=== PATIENT | female | born 1960 | race Caucasian/White ===

== ENCOUNTER 2018-01-26 02:40 | Observation (INO) ==
[2018-01-26] MEDS ORDERED: Naloxone 0.4 MG/ML INJ IVP PRN (05:51)
[2018-01-26] MEDS ORDERED: Dextrose Gel 15 GM/37.5 ML TUBE PO PRN ×2 (06:11)
[2018-01-26] MEDS ORDERED: D5% in Water 1,000 ML IVC PRN (06:11)
[2018-01-26] MEDS ORDERED: *HR* Dextrose 50 % in Water (Syg) 50 ML SYRINGE IVP PRN (06:11)
--- NOTE | 2018-01-26 06:19 | Internal Med History&Physical ---
Date of Encounter: 01/26/18 Time of Encounter: 05:00 Internal Medicine - H&P: HPI Chief complaint: Syncope and confusion Admitted From: Home Plans for Post Hospital Care: Home History of present illness: Ms. Lock is a 57 year old female transferred from [facility] for confusion and syncope. Past medical history is significant for cirrhosis due to fatty liver, diabetes, CKD. Patient said she is more confused yesterday. Around the 4 PM, she loss consciousness and fell. She had forehead injury on the left side. Patient continue confused in [facility] emergency room. She was found elevated ammonia level to 110. Patient had CT head and C-spine, results are unremarkable. Patient was given lactulose 40 g by mouth once and she was transferred to our hospital for further management. When I see patient in floor, she is awake alert oriented 3. Labs in [facility] ER: WBC 7.5/11.6/34.5/156, BMP 139/3.9/106/25/15/1.51/76, AST 70 , ALT 36. Ammonia 110. Past Med Surg Social Fam HX - Past Medical History Medical history: arthritis, cirrhosis, diabetes, GERD, hyperlipidemia, hypertension, liver disease, other Additional medical history: ruptured disc Psychiatric history: depression - Past Surgical History Surgical History: cholecystectomy Additional surgical history: Back surgery. - Social History Smoking Status: Former smoker Smokeless Tobacco Status: No Alcohol use: none Drug use: none - Family History Mother Name: Acacia Oliva Living Status: Age at : 96 Cause of : heart issues Hx Family Cardiac Disorders: Yes (multiple bypass) Hx Family Endocrine Disorder: Yes (type one diabetes) Father Name: Sandor Oliva Living Status: Age at : 76 Cause of : diabtes complaications Hx Family Endocrine Disorder: Yes (dm type 2) Internal Medicine - H&P: Meds Citalopram Hydrobromide [Celexa] 20 mg PO DAILY 03/28/15 [History] Docusate [Colace] 100 mg PO DAILY 03/28/15 [History] Glimepiride [Amaryl] 4 mg PO BID 03/28/15 [History] Omeprazole [PriLOSEC] 40 mg PO DAILY 03/28/15 [History] Simvastatin [Zocor] 40 mg PO HS 03/28/15 [History] traMADol [Ultram] 50 mg PO QID PRN 09/13/15 [History] Ferrous Sulfate [Iron] 325 mg PO DAILY 10/23/16 [History] Tizanidine HCl [Zanaflex] 4 mg PO TID PRN 10/23/16 [History] hydrOXYzine HCl [Hydroxyzine HCl] 25 mg PO Q6-8H PRN 10/23/16 [History] Gabapentin [Neurontin] 300 mg PO TID #90 capsule 11/12/16 [Rx] Nadolol 40 mg PO DAILY 11/12/16 [History] Cetirizine HCl [All Day Allergy] 10 mg PO DAILY 10/15/17 [History] Cholecalciferol (Vitamin D3) [Vitamin D3] 10,000 unit PO QWEEK 10/15/17 [History ] Linagliptin [Tradjenta] 5 mg PO DAILY 10/15/17 [History] Liraglutide [Victoza 2-Colin] 1.8 mg SQ DAILY 10/15/17 [History] Lactulose 10 gm PO BID 12/04/17 [History] Furosemide [Lasix] 20 mg PO DAILY 01/10/18 [History] Spironolactone [Aldactone] 50 mg PO BID 01/10/18 [History] 3 Allergy/AdvReac Type Severity Reaction Status Date / Time amlodipine [From Norvasc] AdvReac Rash Verified 01/10/18 15:01 cephalexin [From Keflex] AdvReac Rash Verified 01/10/18 15:01 diltiazem [From Cardizem] AdvReac Rash Verified 01/10/18 15:01 FD and C blue no.1 AdvReac Itching Verified 01/10/18 15:01 [FD & C Blue No.1] Penicillins [PCN] AdvReac Rash Verified 01/10/18 15:01 All Systems PM: A 10-system review of systems was performed and is negative for pertinent findings except as documented above in the HPI. - Constitutional Vitals: Temp Pulse Resp BP Pulse Ox 97.7 F 68 16 144/83 99 01/26/18 04:06 01/26/18 04:06 01/26/18 04:06 01/26/18 04:06 01/26/18 04:06 General appearance: Present: A&O X 3, no acute distress, answers questions appropriately - Head Head exam: Present: atraumatic, normocephalic - Eye Eye exam: Present: PERRL, conjuntiva pink, sclera anicteric Pupils: Present: PERRL - Neck Neck exam general surgery: Present: supple, trachea midline. Absent: lymphadenopathy - Respiratory Respiratory exam: Present: CTAB. Absent: accessory muscle use, rales, rhonchi, wheezes - Cardiovascular Cardiovascular exam: Present: RRR, +S1, +S2. Absent: diastolic murmur, gallop, rubs, systolic murmur - GI/Abdominal GI/Abdominal exam: Present: normal bowel sounds, soft, no peritoneal signs. Absent: distended, tenderness - Extremities Exam Extremities exam: Present: warm, radial pulses palpable and symmetrical. Absent : calf tenderness, cyanotic, pedal edema - Neurological Exam Neurological exam: Present: CN II-XII intact, oriented X3, no focal deficits. Absent: pronater drift, facial droop, speech deficit - Skin Skin exam: Present: dry, intact - Assessment and plan (1) Syncope Current Visit: Yes Status: Acute Assessment and plan: Patient has syncope and fall, etiology is undetermined. Probably due to hepatic encephalopathy. However, also need to rule out other cardiac/neuro etiology. - Place patient on continuous cardiac monitoring - Check Echo and duplex carotid bilaterally. - Fall precaution Qualifiers: Syncope type: unspecified Qualified Code(s): R55 - Syncope and collapse (2) Hepatic encephalopathy Current Visit: Yes Status: Acute Assessment and plan: Patient has confusion and elevated ammonia level. History of cirrhosis. Consider hepatic encephalopathy. - Improved after large dose of lactulose in the emergency room - Increase patient's home dose of lactulose to 10 g 3 times a day. - Track ammonia level, continuous close monitor patient (3) CKD (chronic kidney disease) stage 3, GFR 30-59 ml/min Current Visit: No Status: Acute Assessment and plan: Creatinine level is at her baseline (4) Liver cirrhosis secondary to STEVEN Current Visit: No Status: Chronic Assessment and plan: Patient is following with GI as outpatient. She was referred to [facility] for liver transplant. (5) Type 2 diabetes mellitus Current Visit: No Status: Chronic Assessment and plan: Place patient on sliding scale insulin coverage Qualifiers: Diabetes mellitus predatory animal exterminator insulin use: without snf use Diabetes mellitus complication status: with kidney complications Diabetes mellitus complication detail: with nephropathy Qualified Code(s): E11.21 - Type 2 diabetes mellitus with diabetic nephropathy - Time Spent With Patient Total time spent is greater than 50% in coordination of care (as documented) at patient's floor/unit and/or counseling patient: 40 minutes Greater than 35 minutes
[2018-01-26 06:24] LABS: Basophils # 0.1 K/mcL (0.0-0.2); Basophils % 1.3 %; Eosinophils # 0.2 K/mcL (0.0-0.6); Eosinophils % 3.7 %; Hematocrit 35.7 % (35.3-44.9); Hemoglobin 11.8 g/dL (11.5-15.4); Immature Granulocytes % 0.3 % (0-4); Lymphocytes # 1.5 K/mcL (0.6-4.6); Lymphocytes % 23.9 %; Mean Corpuscular HGB Conc 33.1 g/dL (31.6-35.5); Mean Corpuscular Hemoglobin 29.2 pg (28.0-33.3); Mean Corpuscular Volume 88.4 fL (83.0-100.0); Mean Platelet Volume 10.1 fL (9.4-12.4); Monocytes # 0.5 K/mcL (0.0-1.3); Monocytes % 8.1 %; Neutrophils # 3.9 K/mcL (1.6-8.9); Platelet Count 106 K/mcL (140-400); Red Blood Count 4.04 M/mcL (3.82-4.97); Red Cell Distribution Width 14.4 % (11.5-14.5); Segmented Neutrophils % 62.7 %
[2018-01-26 06:41] LABS: Albumin 2.9 g/dL (3.5-5.7); Albumin/Globulin Ratio 0.8 (1.1-2.2); Calcium 8.8 mg/dL (8.6-10.3); Globulin 3.5 g/dL (2.4-3.5); Magnesium 1.5 mg/dL (1.6-2.6); Potassium 3.5 mEq/L (3.5-5.1); Total Protein 6.4 g/dL (6.4-8.9)
[2018-01-26] MEDS: Lactulose Oral Soln 20 GM/30 ML UDC PO SCH ×3 (09:08→21:40)
[2018-01-26] MEDS: Furosemide 20 MG TABLET PO SCH (09:09)
[2018-01-26] MEDS: Insulin LISPRO 300 UNITS/3 ML VIAL SQ SCH ×3 (09:13→17:29)
[2018-01-26] MEDS: *HR* Heparin 5,000 UNIT/ML VIAL SQ SCH ×2 (09:13→17:31)
--- NOTE | 2018-01-26 10:24 | Event Note ---
Date of Encounter: 01/26/18 Time of Encounter: 10:22 Patient was seen earlier by hospitalist in the am, I examined the patient at the bedside. Denies any pain or discomfort she is neurologically intact. Denies any pain or discomfort.She is hemodynamically stable
[2018-01-26] MEDS ORDERED: Insulin LISPRO 300 UNITS/3 ML VIAL SQ SCH (21:00)
[2018-01-27 05:30] LABS: Immature Granulocytes % 0.3 % (0-4); Red Cell Distribution Width 14.6 % (11.5-14.5)
[2018-01-27 05:32] LABS: Basophils # 0.1 K/mcL (0.0-0.2); Basophils % 1.4 %; Eosinophils # 0.2 K/mcL (0.0-0.6); Eosinophils % 2.9 %; Hematocrit 31.9 % (35.3-44.9); Hemoglobin 10.6 g/dL (11.5-15.4); Immature Platelets 2.5 % (1.1-6.1); Lymphocytes # 1.7 K/mcL (0.6-4.6); Lymphocytes % 29.2 %; Mean Corpuscular HGB Conc 33.2 g/dL (31.6-35.5); Mean Corpuscular Volume 87.2 fL (83.0-100.0); Mean Platelet Volume 9.9 fL (9.4-12.4); Monocytes # 0.5 K/mcL (0.0-1.3); Monocytes % 8.7 %; Neutrophils # 3.4 K/mcL (1.6-8.9); Platelet Count 105 K/mcL (140-400); Red Blood Count 3.66 M/mcL (3.82-4.97); Segmented Neutrophils % 57.5 %
[2018-01-27 05:49] LABS: Calcium 8.4 mg/dL (8.6-10.3); Potassium 3.3 mEq/L (3.5-5.1)
[2018-01-27] MEDS: *HR* Heparin 5,000 UNIT/ML VIAL SQ SCH ×2 (05:50→18:09)
[2018-01-27] MEDS: Lactulose Oral Soln 20 GM/30 ML UDC PO SCH ×2 (08:42→14:11)
[2018-01-27] MEDS: Furosemide 20 MG TABLET PO SCH (08:43)
[2018-01-27] MEDS: Insulin LISPRO 300 UNITS/3 ML VIAL SQ SCH ×3 (08:50→18:09)
[2018-01-27] MEDS ORDERED: traMADol 50 MG TABLET PO PRN (09:44)
[2018-01-27] MEDS ORDERED: DiphenhydraMINE CREAM 28.4 GM TUBE TP PRN (09:48)
[2018-01-27 15:09] VITALS: BP 130/80
--- NOTE | 2018-01-27 17:40 | Discharge Summary ---
- NOTES TO OUTPATIENT PROVIDER Notes to Outpatient Provider: Carotid duplex did reveal right internal carotid artery has 60-79% stenosis can follow-up with vascular Dr. Humphrey once evaluated by [facility] for liver transplant. Patient did have hypokalemia/ elevated ammonia will need to follow-up with chemistry monitor ammonia level Date of Encounter: 01/27/18 Time of Encounter: 17:38 - Discharge Diagnosis (1) Liver cirrhosis secondary to STEVEN Priority: Secondary Status: Chronic (2) Type 2 diabetes mellitus Priority: Secondary Status: Chronic Qualifiers: Diabetes mellitus terminal superintendent insulin use: without terminal superintendent use Diabetes mellitus complication status: with kidney complications Diabetes mellitus complication detail: with nephropathy Qualified Code(s): E11.21 - Type 2 diabetes mellitus with diabetic nephropathy (3) CKD (chronic kidney disease) stage 3, GFR 30-59 ml/min Priority: Secondary Status: Acute (4) Syncope Priority: Primary Status: Acute Qualifiers: Syncope type: unspecified Qualified Code(s): R55 - Syncope and collapse (5) Hepatic encephalopathy Priority: Primary Status: Acute Hospital course: Ms. Lock is a 57 year old female past medical history of arthritis cirrhosis due to fatty liver diabetes CKD stage III hypertension GERD. Patient was transferred from [facility] for confusion and syncopal episode according to the patient she had not taken her lactulose for approximately 3 days she was found to have an elevated ammonia level of 110. CT head and C- spine were unremarkable she was given lactulose 40 g initially and resumed on her home dose of lactulose. Her ammonia level dropped to 55 She returned to her baseline mental state alert oriented 3 following simple commands. I suspect her altered mental state is secondary to She does have a hematoma to her left eye. Hemoglobin is stable her potassium was low as we replaced creatinine was within her baseline which appears to be around 2 echo was completed which did show EF of 55-60% with no pulmonary hypertension no significant valvular dysfunction. Carotid duplex was completed which did reveal right internal carotid artery has 60-79% stenosis left carotid arteries have minimal plaque throughout. I did speak with Dr. Humphrey vascular surgeon who advised for patient to follow-up with him as outpatient once she has seen by [facility] for her workup concerning a liver transplant. We will continue with her statin however we will hold aspirin due to thrombocytopenia which appears to be chronic but currently higher than it has been in the past. I did advise the patient to follow-up with her primary care provider and to monitor her lab work as outpatient. She verbalized understanding. I also advised her to follow-up with her eye state which she states she has appointment on the of this month and to follow-up with Dr. Humphrey once she completes her workup. She did verbalize understanding. Advised patient to continue medications as directed and to continue with home dose of lactulose. Again she verbalized understanding vital signs are stable at this time orthostatics were completed and are within normal limits she is ready for discharge. Discharge discussed with: patient - Time Spent with Patient Total time spent providing and/or coordinating discharge services: - Discharge Medications Home Medications: Citalopram Hydrobromide [Celexa] 20 mg PO DAILY 03/28/15 [History] Docusate [Colace] 100 mg PO DAILY 03/28/15 [History] Glimepiride [Amaryl] 4 mg PO BID 03/28/15 [History] Omeprazole [PriLOSEC] 40 mg PO DAILY 03/28/15 [History] Simvastatin [Zocor] 40 mg PO HS 03/28/15 [History] traMADol [Ultram] 50 mg PO QID PRN 09/13/15 [History] Ferrous Sulfate [Iron] 325 mg PO DAILY 10/23/16 [History] Tizanidine HCl [Zanaflex] 4 mg PO TID PRN 10/23/16 [History] hydrOXYzine HCl [Hydroxyzine HCl] 25 mg PO Q6-8H PRN 10/23/16 [History] Gabapentin [Neurontin] 300 mg PO TID #90 capsule 11/12/16 [Rx] Nadolol 40 mg PO DAILY 11/12/16 [History] Cetirizine HCl [All Day Allergy] 10 mg PO DAILY 10/15/17 [History] Cholecalciferol (Vitamin D3) [Vitamin D3] 10,000 unit PO QWEEK 10/15/17 [History ] Linagliptin [Tradjenta] 5 mg PO DAILY 10/15/17 [History] Liraglutide [Victoza 2-Colin] 1.8 mg SQ DAILY 10/15/17 [History] Lactulose 10 gm PO BID 12/04/17 [History] Furosemide [Lasix] 20 mg PO DAILY 01/10/18 [History] Spironolactone [Aldactone] 50 mg PO BID 01/10/18 [History] Allergies/Adverse Reactions: 3 Allergy/AdvReac Type Severity Reaction Status Date / Time amlodipine [From Norvasc] AdvReac Rash Verified 01/10/18 15:01 cephalexin [From Keflex] AdvReac Rash Verified 01/10/18 15:01 diltiazem [From Cardizem] AdvReac Rash Verified 01/10/18 15:01 FD and C blue no.1 AdvReac Itching Verified 01/10/18 15:01 [FD & C Blue No.1] Penicillins [PCN] AdvReac Rash Verified 01/10/18 15:01 Date of admission: 01/26/18 03:40 Primary care physician: Aurora Yang, Discharging clinician: Laquita Bailey Anticipated date of discharge: 01/27/18 - Constitutional Vitals: Temp Pulse Resp BP Pulse Ox 98.7 F 62 16 130/80 98 01/27/18 15:08 01/27/18 15:08 01/27/18 15:08 01/27/18 15:08 01/27/18 15:08 General appearance: Present: A&O X 3, no acute distress, answers questions appropriately - Head Head exam: Present: atraumatic, normocephalic - Eye Eye exam: Present: PERRL, conjuntiva pink, sclera anicteric Pupils: Present: PERRL - Neck Neck exam general surgery: Present: supple, trachea midline. Absent: lymphadenopathy - Respiratory Respiratory exam: Present: CTAB. Absent: accessory muscle use, rales, rhonchi, wheezes - Cardiovascular Cardiovascular exam: Present: RRR, +S1, +S2. Absent: diastolic murmur, gallop, rubs, systolic murmur - GI/Abdominal GI/Abdominal exam: Present: normal bowel sounds, soft, no peritoneal signs. Absent: distended, tenderness - Extremities Exam Extremities exam: Present: warm, radial pulses palpable and symmetrical. Absent : calf tenderness, cyanotic, pedal edema - Neurological Exam Neurological exam: Present: CN II-XII intact, oriented X3, no focal deficits. Absent: pronater drift, facial droop, speech deficit - Skin Skin exam: Present: dry, intact - Patient Status Disposition: Home, Self-Care Condition: Good Functional capacity at discharge: independent ambulation Overall status at discharge: patient is back to baseline - Discharge Instructions Follow Up With: Aurora Yang CNP [Primary Care Provider] - 02/04/18 1:00 pm () Sukhi Hilliard MD [Partnered Physician] - (We have web requested you an appointment with Dr. Hilliard's office. If you do not hear from them by next week please call them. Thank you!) - Diet and Activity Activity: resume usual activities as tolerated Diet: advance to your usual diet
== END 2018-01-27 20:10 | disposition home or self-care (01) ==
LOC: 3BNU
PROVIDERS: ADMIT Internal Medicine; ATTEND Internal Medicine

== ENCOUNTER 2019-02-26 16:15 | Inpatient (IN) ==
--- NOTE | 2019-02-26 16:30 | Emergency Department Note ---
Disposition Clinical Impression: Delirium due to general medical condition, Hyperammonemia, Thrombocytopenia Disposition: Admitted As Inpatient Condition: Good Time of Disposition: 18:33 Altered Mental Status HPI - General Chief Complaint: ED Altered Mental Status Stated Complaint: AMS, CA Patient Time Seen by Provider: 02/26/19 16:27 Source: family Limitations: no limitations Nursing Notes Reviewed: Yes Vital Signs Reviewed: Yes - History of Present Illness HPI Narrative: Female patient was and she emerged department from the [facility] for increased confusion. She does have a history of STEVEN. is with the at this time and states that she has been confused over the past 3 days. She is mentating appropriately at this time. He states that when her ammonia goes up she does get more confused. She reports that she is taking her medication as prescribed. He states that she has had 3 episodes of vomiting today. The last episode did have some mild amount of blood in it but was not overtly bloody or debbie blood. The vomitus was mostly yellow in color. He states that she does have falls at home whenever ammonia sign he was concerned because she does appear to be unstable on her feet. They were at the [facility] earlier today and were informed to come to the emergency department secondary to her altered mental status and weakness. - Related Data Home Medications Medication Instructions Recorded Confirmed Citalopram Hydrobromide [Celexa] 20 mg PO DAILY 03/28/15 02/26/19 Omeprazole [PriLOSEC] 40 mg PO DAILY 03/28/15 02/26/19 Simvastatin [Zocor] 40 mg PO HS 03/28/15 02/26/19 traMADol [Ultram] 50 mg PO QID PRN 09/13/15 02/26/19 Ferrous Sulfate [Iron] 325 mg PO DAILY 10/23/16 02/26/19 Tizanidine HCl [Zanaflex] 4 mg PO HS 10/23/16 02/28/19 hydrOXYzine HCl [Hydroxyzine HCl] 25 mg PO TID PRN 10/23/16 02/28/19 Cetirizine HCl [All Day Allergy] 10 mg PO DAILY 10/15/17 02/26/19 Cholecalciferol (Vitamin D3) 10,000 unit PO TH 10/15/17 02/28/19 [Vitamin D3] Linagliptin [Tradjenta] 5 mg PO DAILY 10/15/17 02/26/19 Liraglutide [Victoza 2-Colin] 1.8 mg SQ DAILY 10/15/17 02/26/19 Furosemide [Lasix] 20 mg PO DAILY 01/10/18 02/26/19 Spironolactone [Aldactone] 100 mg PO DAILY 01/10/18 02/28/19 Insulin DETEMIR [Levemir] 44 unit SQ HS 04/17/18 02/28/19 Propranolol [Inderal] 10 mg PO BID 09/01/18 02/26/19 Rifaximin [Xifaxan] 550 mg PO BID 09/01/18 02/26/19 Insulin LISPRO [Humalog] 23 units SQ TID 11/28/18 02/28/19 Melatonin 5 mg PO HS 02/28/19 02/28/19 Potassium Chloride [K-Tab ER] 20 meq PO DAILY 02/28/19 02/28/19 Previous Rx's Medication Instructions Recorded Gabapentin [Neurontin] 300 mg PO TID #90 capsule 11/12/16 Lactulose 20 gm PO BID #60 udc 03/01/19 Allergies Allergy/AdvReac Type Severity Reaction Status Date / Time amlodipine [From Norvasc] AdvReac Rash Verified 02/26/19 15:14 cephalexin [From Keflex] AdvReac Rash Verified 02/26/19 15:14 diltiazem [From Cardizem] AdvReac Rash Verified 02/26/19 15:14 FD and C blue no.1 AdvReac Itching Verified 02/26/19 15:14 [FD & C Blue No.1] lisinopril AdvReac Nausea Verified 02/26/19 15:14 Penicillins [PCN] AdvReac Rash Verified 02/26/19 15:14 All systems ED: reviewed and negative except as stated. Review of Systems: As Per HPI Constitutional: Denies: fever, chills ENT ED: Denies: congestion Cardiovascular: Denies: chest pain, syncope Respiratory: Denies: cough, dyspnea Gastrointestinal: Reports: vomiting (3 episodes of vomiting earlier today.), hematemesis (Possible streaking of the last episode of vomitus.). Denies: abdominal pain, nausea, melena, hematochezia Neurological: Reports: weakness, confusion. Denies: headache Past Medical History - Past Medical History Attestation: Yes The following information was validated with the patient. Source: patient Medical history: Reports: arthritis, cirrhosis, diabetes, GERD, hyperlipidemia, hypertension, liver disease, renal disease, other Surgical history: Reports: cholecystectomy Psychiatric history: Reports: depression - Social History Smoking Status: Former smoker Smokeless Tobacco Status: No Alcohol use: Reports: none Drug use: Reports: none Physical Exam - General Limitations: no limitations General appearance: alert, in no apparent distress - Head Head exam: atraumatic, normocephalic, normal inspection - Eye Eye exam: Present: normal appearance, PERRL, EOMI - ENT ENT exam: normal exam, normal oropharynx, mucous membranes moist - Neck Neck exam: Present: normal inspection, full ROM, trachea midline - Chest Chest inspection: Present: normal inspection, symmetric chest wall rise - Respiratory Respiratory exam: Present: normal lung sounds bilaterally. Absent: respiratory distress, accessory muscle use - Cardiovascular Cardiovascular exam: Present: regular rate, normal rhythm, normal heart sounds - Abdominal Exam Abdominal exam: Present: soft, Non-Tender. Absent: tenderness, distention, guarding, rebound, rigidity, Dunne's sign, Rovsing's sign, tenderness at McBurney's Point, ascites - Extremities Exam Extremities exam: Present: normal inspection, full ROM, normal capillary refill. Absent: tenderness, pedal edema, calf tenderness - Back Exam Back exam: Present: normal inspection, full ROM. Absent: tenderness - Neurological Exam Neurological exam: Present: alert, oriented X3 - Psychiatric Psychiatric exam: Present: normal affect, normal mood - Skin Skin exam: Present: warm, dry, intact, normal color, other (Ecchymosis to bilateral arms.). Absent: rash, cyanosis, diaphoresis Course Course Narrative: Patient resting comfortably in bed. She is alert to person place and time but does appear to be tired. Has been states that she has been more confused recently which was consistent with her ammonia being elevated before. He states in the patient also agrees that she has been taking her medication as prescribed. She has been taking her lactulose. She does have a history of STEVEN. Patient is in no acute distress with stable vitals. Abdomen is soft and nontender. There is no fluid wave that I can appreciate. She does have some ecchymosis scattered her arms from bumping into things secondary to her liver failure. She is currently on a liver transplant list at this time. She has had 3 episodes of vomiting today. She reports that she is not nauseated at this time and is requesting food. She states that the vomitus has been a yellow color. The states that the last time she vomited there was a small amount of redness to the vomit. It was not overtly bloody however. Patient's lab work shows a elevated ammonia level at this time. We will provide patient with lactulose and admit to the hospital. Has been states that he has concerned that she will have falls at home as she is rather weak on her feet. She does have easy bleeding secondary to her liver failure. She does appear to be overtly week while here with no lateralizing symptoms. Vital Signs Temperature 97.6 F 02/26/19 16:18 Pulse Rate 75 02/26/19 16:18 Respiratory Rate 18 02/26/19 16:18 Blood Pressure 152/84 02/26/19 16:18 O2 Sat by Pulse Oximetry 100 02/26/19 16:18 Temperature 97.6 F 02/26/19 16:18 Pulse Rate 70 02/26/19 18:15 Respiratory Rate 18 02/26/19 18:15 Blood Pressure 127/69 02/26/19 18:15 O2 Sat by Pulse Oximetry 100 02/26/19 18:15 Oxygen Delivery Oxygen Delivery Room Air Altered Mental Status - Medical Records Medical records reviewed: Yes I reviewed the patient's medical records. - Lab Data Lab results reviewed: Yes I reviewed the patient's lab results. Result diagrams: 03/01/19 01:54 03/01/19 01:54 Lab Results 02/26/19 02/26/19 02/26/19 Range/Units 16:45 16:45 16:51 WBC 4.8 (4.3-11.1) K/mcL RBC 4.74 (3.82-4.97) M/mcL Hgb 14.4 D (11.5-15.4) g/dL Hct 42.9 (35.3-44.9) % MCV 90.5 (83.0-100.0) fL MCH 30.4 (28.0-33.3) pg MCHC 33.6 (31.6-35.5) g/dL RDW 14.9 H (11.5-14.5) % Plt Count 98 L (140-400) K/mcL MPV 10.0 (9.4-12.4) fL Immature Gran % 0.2 (0-4) % Seg Neutrophils % 77.1 % Lymphocytes % 12.9 % Monocytes % 4.8 % Eosinophils % 4.0 % Basophils % 1.0 % Neutrophils # 3.7 (1.6-8.9) K/mcL Lymphocytes # 0.6 (0.6-4.6) K/mcL Monocytes # 0.2 (0.0-1.3) K/mcL Eosinophils # 0.2 (0.0-0.6) K/mcL Basophils # 0.1 (0.0-0.2) K/mcL Platelet Estimate Decreased L (Normal) PT (9.4-12.1) Seconds INR APTT (26.0-36.0) Seconds VBG pH (7.32-7.42) pH Units VBG pCO2 (41-51) mmHg VBG pO2 (25-50) mmHg VBG HCO3 (21-27) mEq/L Sodium (136-145) mEq/L Potassium (3.5-5.1) mEq/L Chloride (98-107) mEq/L Carbon Dioxide (23-29) mEq/L BUN (6-20) mg/dL Creatinine (0.60-1.20) mg/dL Est GFR ( Amer) (> 60) Est GFR (Non-Af Amer) (> 60) BUN/Creatinine Ratio (6-26) Glucose (70-105) mg/dL Calculated Osmolality (280-300) Calcium (8.6-10.3) mg/dL Total Bilirubin (0.3-1.0) mg/dL Direct Bilirubin (0.0-0.2) mg/dL Indirect Bilirubin (0.0-1.2) mg/dL AST (13-39) Units/L ALT (7-52) Units/L Alkaline Phosphatase (34-104) Units/L Ammonia (16-53) mcmol/L Troponin I (< 0.04) ng/mL Serum Total Protein (6.4-8.9) g/dL Albumin (3.5-5.7) g/dL Globulin (2.4-3.5) g/dL Albumin/Globulin Ratio (1.1-2.2) Urine Color Yellow (Yellow) Urine Clarity Cloudy A (Clear) Urine pH 6.5 (5.0-8.0) pH Units Ur Specific Warren 1.013 (1.010-1.025) Urine Protein Negative (Neg-Trace) mg/dL Urine Glucose (UA) >=1000 H (Normal) mg/dL Urine Ketones Negative (Negative) mg/dL Urine Blood Negative (Negative) Urine Nitrite Negative (Negative) Urine Bilirubin Negative (Negative) Urine Urobilinogen Normal (Normal) mg/dL Ur Leukocyte Esterase Trace H (Negative) Urine Microscopic RBC 0-3 (0-3) per hpf Urine Microscopic WBC 5-15 H (0-3) per hpf Ur Squamous Epith Cells Many H (None-Few) per lpf Urine Bacteria Few (None-Few) per hpf Hyaline Casts None Seen (None-Few) per lpf Ur Culture Indicated? YES A (NO) Urine Opiates Screen Negative (Ldjykg=224) ng/mL Ur Buprenorphine Scrn Negative (Cutoff=5) ng/mL Ur Barbiturates Screen Negative (Sgzocn=509) ng/mL Ur Phencyclidine Scrn Negative (Cutoff=25) ng/mL Ur Amphetamines Screen Negative (Ckluqy=1934) ng/mL U Benzodiazepines Scrn Negative (Lytiul=003) ng/mL Urine Cocaine Screen Negative (Cutoff= 300) ng/mL U Marijuana (THC) Screen Negative (Cutoff = 50) ng/mL Ur Drug Screen Interp See Below Ethyl Alcohol (Less than 10) mg/dL 02/26/19 02/26/19 02/26/19 Range/Units 16:51 16:51 16:51 WBC (4.3-11.1) K/mcL RBC (3.82-4.97) M/mcL Hgb (11.5-15.4) g/dL Hct (35.3-44.9) % MCV (83.0-100.0) fL MCH (28.0-33.3) pg MCHC (31.6-35.5) g/dL RDW (11.5-14.5) % Plt Count (140-400) K/mcL MPV (9.4-12.4) fL Immature Gran % (0-4) % Seg Neutrophils % % Lymphocytes % % Monocytes % % Eosinophils % % Basophils % % Neutrophils # (1.6-8.9) K/mcL Lymphocytes # (0.6-4.6) K/mcL Monocytes # (0.0-1.3) K/mcL Eosinophils # (0.0-0.6) K/mcL Basophils # (0.0-0.2) K/mcL Platelet Estimate (Normal) PT 12.8 H (9.4-12.1) Seconds INR 1.1 APTT 35.7 (26.0-36.0) Seconds VBG pH (7.32-7.42) pH Units VBG pCO2 (41-51) mmHg VBG pO2 (25-50) mmHg VBG HCO3 (21-27) mEq/L Sodium 138 (136-145) mEq/L Potassium 3.9 (3.5-5.1) mEq/L Chloride 101 (98-107) mEq/L Carbon Dioxide 25 (23-29) mEq/L BUN 18 (6-20) mg/dL Creatinine 1.43 H (0.60-1.20) mg/dL Est GFR ( Amer) 46 L (> 60) Est GFR (Non-Af Amer) 38 L (> 60) BUN/Creatinine Ratio 13 (6-26) Glucose 280 H (70-105) mg/dL Calculated Osmolality 298 (280-300) Calcium 9.3 (8.6-10.3) mg/dL Total Bilirubin 1.6 H (0.3-1.0) mg/dL Direct Bilirubin 0.4 H (0.0-0.2) mg/dL Indirect Bilirubin 1.2 (0.0-1.2) mg/dL AST 39 (13-39) Units/L ALT 24 (7-52) Units/L Alkaline Phosphatase 134 H (34-104) Units/L Ammonia 121 H (16-53) mcmol/L Troponin I < 0.03 (< 0.04) ng/mL Serum Total Protein 8.3 (6.4-8.9) g/dL Albumin 3.9 (3.5-5.7) g/dL Globulin 4.4 H (2.4-3.5) g/dL Albumin/Globulin Ratio 0.9 L (1.1-2.2) Urine Color (Yellow) Urine Clarity (Clear) Urine pH (5.0-8.0) pH Units Ur Specific Warren (1.010-1.025) Urine Protein (Neg-Trace) mg/dL Urine Glucose (UA) (Normal) mg/dL Urine Ketones (Negative) mg/dL Urine Blood (Negative) Urine Nitrite (Negative) Urine Bilirubin (Negative) Urine Urobilinogen (Normal) mg/dL Ur Leukocyte Esterase (Negative) Urine Microscopic RBC (0-3) per hpf Urine Microscopic WBC (0-3) per hpf Ur Squamous Epith Cells (None-Few) per lpf Urine Bacteria (None-Few) per hpf Hyaline Casts (None-Few) per lpf Ur Culture Indicated? (NO) Urine Opiates Screen (Uxmtxl=385) ng/mL Ur Buprenorphine Scrn (Cutoff=5) ng/mL Ur Barbiturates Screen (Canksp=614) ng/mL Ur Phencyclidine Scrn (Cutoff=25) ng/mL Ur Amphetamines Screen (Emkftv=3283) ng/mL U Benzodiazepines Scrn (Mqnypb=473) ng/mL Urine Cocaine Screen (Cutoff= 300) ng/mL U Marijuana (THC) Screen (Cutoff = 50) ng/mL Ur Drug Screen Interp Ethyl Alcohol < 10 (Less than 10) mg/dL 02/26/19 Range/Units 17:03 WBC (4.3-11.1) K/mcL RBC (3.82-4.97) M/mcL Hgb (11.5-15.4) g/dL Hct (35.3-44.9) % MCV (83.0-100.0) fL MCH (28.0-33.3) pg MCHC (31.6-35.5) g/dL RDW (11.5-14.5) % Plt Count (140-400) K/mcL MPV (9.4-12.4) fL Immature Gran % (0-4) % Seg Neutrophils % % Lymphocytes % % Monocytes % % Eosinophils % % Basophils % % Neutrophils # (1.6-8.9) K/mcL Lymphocytes # (0.6-4.6) K/mcL Monocytes # (0.0-1.3) K/mcL Eosinophils # (0.0-0.6) K/mcL Basophils # (0.0-0.2) K/mcL Platelet Estimate (Normal) PT (9.4-12.1) Seconds INR APTT (26.0-36.0) Seconds VBG pH 7.37 (7.32-7.42) pH Units VBG pCO2 44 (41-51) mmHg VBG pO2 36 (25-50) mmHg VBG HCO3 25 (21-27) mEq/L Sodium (136-145) mEq/L Potassium (3.5-5.1) mEq/L Chloride (98-107) mEq/L Carbon Dioxide (23-29) mEq/L BUN (6-20) mg/dL Creatinine (0.60-1.20) mg/dL Est GFR ( Amer) (> 60) Est GFR (Non-Af Amer) (> 60) BUN/Creatinine Ratio (6-26) Glucose (70-105) mg/dL Calculated Osmolality (280-300) Calcium (8.6-10.3) mg/dL Total Bilirubin (0.3-1.0) mg/dL Direct Bilirubin (0.0-0.2) mg/dL Indirect Bilirubin (0.0-1.2) mg/dL AST (13-39) Units/L ALT (7-52) Units/L Alkaline Phosphatase (34-104) Units/L Ammonia (16-53) mcmol/L Troponin I (< 0.04) ng/mL Serum Total Protein (6.4-8.9) g/dL Albumin (3.5-5.7) g/dL Globulin (2.4-3.5) g/dL Albumin/Globulin Ratio (1.1-2.2) Urine Color (Yellow) Urine Clarity (Clear) Urine pH (5.0-8.0) pH Units Ur Specific Warren (1.010-1.025) Urine Protein (Neg-Trace) mg/dL Urine Glucose (UA) (Normal) mg/dL Urine Ketones (Negative) mg/dL Urine Blood (Negative) Urine Nitrite (Negative) Urine Bilirubin (Negative) Urine Urobilinogen (Normal) mg/dL Ur Leukocyte Esterase (Negative) Urine Microscopic RBC (0-3) per hpf Urine Microscopic WBC (0-3) per hpf Ur Squamous Epith Cells (None-Few) per lpf Urine Bacteria (None-Few) per hpf Hyaline Casts (None-Few) per lpf Ur Culture Indicated? (NO) Urine Opiates Screen (Nvvcis=397) ng/mL Ur Buprenorphine Scrn (Cutoff=5) ng/mL Ur Barbiturates Screen (Qgxfas=675) ng/mL Ur Phencyclidine Scrn (Cutoff=25) ng/mL Ur Amphetamines Screen (Egsxws=7120) ng/mL U Benzodiazepines Scrn (Izyydv=518) ng/mL Urine Cocaine Screen (Cutoff= 300) ng/mL U Marijuana (THC) Screen (Cutoff = 50) ng/mL Ur Drug Screen Interp Ethyl Alcohol (Less than 10) mg/dL - Radiology Data Radiology results reviewed: Yes I reviewed the patient's radiology results. Chest X-Ray 02/26/19 16:28 IMPRESSION: No evidence of acute cardiopulmonary disease. D/ / Scott Dobson MD / Scott Dobson MD Interpreting Provider: Scott Dobson MD Head CT 02/26/19 16:35 IMPRESSION: No acute intracranial abnormality. D/ / Percy Perea / Percy Perea Interpreting Provider: Percy Perea - EKG Data EKG attestation: Yes I reviewed and interpreted this EKG. EKG results narrative: Normal sinus rhythm at a rate of 75. PA interval is 169. Shinto is 101. QTC is 441. QTC is 493. Good R-wave progression. No signs of acute ischemia. No signs of WPW or Brugada. No previous EKG to compare to. TPA Checklist - LKW: 3-4.5 hrs Add. Warnings/Precautions Patient/family understanding: The patient/family members have been counseled and understood the risk, benefit, and alternatives of treatment. Attestation Statement - Attestation Attestation: I have seen this patient with the resident physician, I have personally evaluated this patient. I had reviewed the chart and document dictation by the resident physician and aM in agreement with the information documented by the resident physician. Please see documentation by the resident physician for complete chart including past medical history, family medical history, review of systems, current history and physical and laboratory and imaging studies. I was present for all procedures, provided direct supervision for all procedures, was present for the entirety of all procedures and provided direct guidance during the procedures. Please see documentation by the resident physi daryl for any procedures performed. I have reviewed all interpretations of EKGs, and reviewed all EKGs performed on patient's as well. I have also reviewed reports of imaging as provided by radiology.
[2019-02-26 17:05] LABS: VBG HCO3 25 mEq/L (21-27); VBG PCO2 44 mmHg (41-51); VBG PH 7.37 pH Units (7.32-7.42); VBG PO2 36 mmHg (25-50)
[2019-02-26 17:09] LABS: Basophils # 0.1 K/mcL (0.0-0.2); Eosinophils # 0.2 K/mcL (0.0-0.6); Hematocrit 42.9 % (35.3-44.9); Hemoglobin 14.4 g/dL (11.5-15.4); Immature Granulocytes % 0.2 % (0-4); Lymphocytes # 0.6 K/mcL (0.6-4.6); Lymphocytes % 12.9 %; Mean Corpuscular HGB Conc 33.6 g/dL (31.6-35.5); Mean Corpuscular Hemoglobin 30.4 pg (28.0-33.3); Mean Corpuscular Volume 90.5 fL (83.0-100.0); Monocytes # 0.2 K/mcL (0.0-1.3); Monocytes % 4.8 %; Neutrophils # 3.7 K/mcL (1.6-8.9); Red Blood Count 4.74 M/mcL (3.82-4.97); Red Cell Distribution Width 14.9 % (11.5-14.5); Segmented Neutrophils % 77.1 %; White Blood Count 4.8 K/mcL (4.3-11.1)
[2019-02-26 17:10] LABS: Platelet Count 98 K/mcL (140-400)
[2019-02-26 17:11] LABS: Platelet Estimate Decreased (Normal)
[2019-02-26 17:18] LABS: INR 1.1; Prothrombin Time 12.8 Seconds (9.4-12.1)
[2019-02-26 17:20] LABS: Activated Partial Thrombo Time 35.7 Seconds (26.0-36.0)
[2019-02-26 17:27] LABS: Bilirubin,Urine Negative (Negative); Blood,Urine Negative (Negative); Clarity,Urine Cloudy (Clear); Color,Urine Yellow (Yellow); Glucose,Urine (UA) >=1000 mg/dL (Normal); Ketones,Urine Negative (Negative); Leukocyte Esterase,Urine Trace (Negative); Nitrite,Urine Negative (Negative); PH,Urine 6.5 pH Units (5.0-8.0); Protein,Urine Negative (Neg-Trace); Specific Gravity,Urine 1.013 (1.010-1.025); Urobilinogen,Urine Normal (Normal)
[2019-02-26 17:27] LABS: Alanine Aminotransferase 24 Units/L (7-52); Albumin 3.9 g/dL (3.5-5.7); Albumin/Globulin Ratio 0.9 (1.1-2.2); Alkaline Phosphatase 134 Units/L (34-104); Aspartate Amino Transferase 39 Units/L (13-39); BUN/Creatinine Ratio 13 (6-26); Bilirubin,Direct 0.4 mg/dL (0.0-0.2); Bilirubin,Indirect 1.2 mg/dL (0.0-1.2); Bilirubin,Total 1.6 mg/dL (0.3-1.0); Blood Urea Nitrogen 18 mg/dL (6-20); Calcium 9.3 mg/dL (8.6-10.3); Carbon Dioxide 25 mEq/L (23-29); Chloride 101 mEq/L (98-107); Ethanol < 10 mg/dL (Less than 10); Globulin 4.4 g/dL (2.4-3.5); Glucose 280 mg/dL (70-105); Osmolality,Calculated 298 (280-300); Potassium 3.9 mEq/L (3.5-5.1); Sodium 138 mEq/L (136-145); Total Protein 8.3 g/dL (6.4-8.9); Troponin I < 0.03 ng/mL (< 0.04); eGFR For African Americans 46 (> 60); eGFR For Non-African Americans 38 (> 60)
[2019-02-26 17:29] LABS: Bacteria,Urine Few per hpf (None-Few); Hyaline Casts,Urine None Seen per lpf (None-Few); RBC,Urine 0-3 per hpf (0-3); Squamous Epithelial Cell,Urine Many per lpf (None-Few)
[2019-02-26 17:32] LABS: Amphetamine Screen,Urine Negative ng/mL (Cutoff=1000); Barbiturate Screen,Urine Negative ng/mL (Cutoff=200); Benzodiazepines Screen,Urine Negative ng/mL (Cutoff=200); Cannabinoid Screen,Urine Negative ng/mL (Cutoff = 50); Cocaine Screen,Urine Negative ng/mL (Cutoff= 300); Opiate Screen,Urine Negative ng/mL (Cutoff=300); Phencyclidine Screen,Urine Negative ng/mL (Cutoff=25)
[2019-02-26] MEDS ORDERED: Lactulose Oral Soln 20 GM/30 ML UDC PO STA (17:54)
--- NOTE | 2019-02-26 18:21 | Emergency Department Note ---
Disposition Clinical Impression: Delirium due to general medical condition, Hyperammonemia, Thrombocytopenia Disposition: Admitted As Inpatient Condition: Good Forms: ED Satisfaction Letter Time of Disposition: 18:21 Altered Mental Status HPI - General Chief Complaint: ED Altered Mental Status Stated Complaint: AMS, CA Patient Time Seen by Provider: 02/26/19 16:27 Source: family Limitations: no limitations Nursing Notes Reviewed: Yes Vital Signs Reviewed: Yes - Related Data Home Medications Medication Instructions Recorded Confirmed Citalopram Hydrobromide [Celexa] 20 mg PO DAILY 03/28/15 02/26/19 Glimepiride [Amaryl] 4 mg PO BID 03/28/15 02/26/19 Omeprazole [PriLOSEC] 40 mg PO DAILY 03/28/15 02/26/19 Simvastatin [Zocor] 40 mg PO HS 03/28/15 02/26/19 traMADol [Ultram] 50 mg PO QID PRN 09/13/15 02/26/19 Ferrous Sulfate [Iron] 325 mg PO DAILY 10/23/16 02/26/19 Tizanidine HCl [Zanaflex] 4 mg PO TID PRN 10/23/16 02/26/19 hydrOXYzine HCl [Hydroxyzine HCl] 25 mg PO Q6-8H PRN 10/23/16 02/26/19 Cetirizine HCl [All Day Allergy] 10 mg PO DAILY 10/15/17 02/26/19 Cholecalciferol (Vitamin D3) 10,000 unit PO QWEEK 10/15/17 02/26/19 [Vitamin D3] Linagliptin [Tradjenta] 5 mg PO DAILY 10/15/17 02/26/19 Liraglutide [Victoza 2-Colin] 1.8 mg SQ DAILY 10/15/17 02/26/19 Lactulose 20 gm PO TID 12/04/17 02/26/19 Furosemide [Lasix] 20 mg PO DAILY 01/10/18 02/26/19 Spironolactone [Aldactone] 50 mg PO BID 01/10/18 02/26/19 Insulin DETEMIR [Levemir] 38 unit SQ DAILY 04/17/18 02/26/19 Propranolol [Inderal] 10 mg PO BID 09/01/18 02/26/19 Rifaximin [Xifaxan] 550 mg PO BID 09/01/18 02/26/19 Insulin LISPRO [Humalog] 24 units SQ 2-3XD 11/28/18 02/26/19 Previous Rx's Medication Instructions Recorded Gabapentin [Neurontin] 300 mg PO TID #90 capsule 11/12/16 Allergies Allergy/AdvReac Type Severity Reaction Status Date / Time amlodipine [From Norvasc] AdvReac Rash Verified 02/26/19 15:14 cephalexin [From Keflex] AdvReac Rash Verified 02/26/19 15:14 diltiazem [From Cardizem] AdvReac Rash Verified 02/26/19 15:14 FD and C blue no.1 AdvReac Itching Verified 02/26/19 15:14 [FD & C Blue No.1] lisinopril AdvReac Nausea Verified 02/26/19 15:14 Penicillins [PCN] AdvReac Rash Verified 02/26/19 15:14 Constitutional: Denies: fever, chills ENT ED: Denies: congestion Cardiovascular: Denies: chest pain, syncope Respiratory: Denies: cough, dyspnea Gastrointestinal: Reports: vomiting (3 episodes of vomiting earlier today.), hematemesis (Possible streaking of the last episode of vomitus.). Denies: abdominal pain, nausea, melena, hematochezia Neurological: Reports: weakness, confusion. Denies: headache Past Medical History - Past Medical History Medical history: Reports: arthritis, cirrhosis, diabetes, GERD, hyperlipidemia, hypertension, liver disease, renal disease, other Surgical history: Reports: cholecystectomy Psychiatric history: Reports: depression - Social History Smoking Status: Former smoker Smokeless Tobacco Status: No Alcohol use: Reports: none Drug use: Reports: none Physical Exam - General Limitations: no limitations General appearance: alert, in no apparent distress Course Vital Signs Temperature 97.6 F 02/26/19 16:18 Pulse Rate 75 02/26/19 16:18 Respiratory Rate 18 02/26/19 16:18 Blood Pressure 152/84 02/26/19 16:18 O2 Sat by Pulse Oximetry 100 02/26/19 16:18 Temperature 97.6 F 02/26/19 16:18 Pulse Rate 70 02/26/19 18:15 Respiratory Rate 18 02/26/19 18:15 Blood Pressure 127/69 02/26/19 18:15 O2 Sat by Pulse Oximetry 100 02/26/19 18:15 Oxygen Delivery Oxygen Delivery Room Air Altered Mental Status - Lab Data Result diagrams: 02/26/19 16:51 02/26/19 16:51 Lab Results 02/26/19 02/26/19 02/26/19 Range/Units 16:45 16:45 16:51 WBC 4.8 (4.3-11.1) K/mcL RBC 4.74 (3.82-4.97) M/mcL Hgb 14.4 D (11.5-15.4) g/dL Hct 42.9 (35.3-44.9) % MCV 90.5 (83.0-100.0) fL MCH 30.4 (28.0-33.3) pg MCHC 33.6 (31.6-35.5) g/dL RDW 14.9 H (11.5-14.5) % Plt Count 98 L (140-400) K/mcL MPV 10.0 (9.4-12.4) fL Immature Gran % 0.2 (0-4) % Seg Neutrophils % 77.1 % Lymphocytes % 12.9 % Monocytes % 4.8 % Eosinophils % 4.0 % Basophils % 1.0 % Neutrophils # 3.7 (1.6-8.9) K/mcL Lymphocytes # 0.6 (0.6-4.6) K/mcL Monocytes # 0.2 (0.0-1.3) K/mcL Eosinophils # 0.2 (0.0-0.6) K/mcL Basophils # 0.1 (0.0-0.2) K/mcL Platelet Estimate Decreased L (Normal) PT (9.4-12.1) Seconds INR APTT (26.0-36.0) Seconds VBG pH (7.32-7.42) pH Units VBG pCO2 (41-51) mmHg VBG pO2 (25-50) mmHg VBG HCO3 (21-27) mEq/L Sodium (136-145) mEq/L Potassium (3.5-5.1) mEq/L Chloride (98-107) mEq/L Carbon Dioxide (23-29) mEq/L BUN (6-20) mg/dL Creatinine (0.60-1.20) mg/dL Est GFR ( Amer) (> 60) Est GFR (Non-Af Amer) (> 60) BUN/Creatinine Ratio (6-26) Glucose (70-105) mg/dL Calculated Osmolality (280-300) Calcium (8.6-10.3) mg/dL Total Bilirubin (0.3-1.0) mg/dL Direct Bilirubin (0.0-0.2) mg/dL Indirect Bilirubin (0.0-1.2) mg/dL AST (13-39) Units/L ALT (7-52) Units/L Alkaline Phosphatase (34-104) Units/L Ammonia (16-53) mcmol/L Troponin I (< 0.04) ng/mL Serum Total Protein (6.4-8.9) g/dL Albumin (3.5-5.7) g/dL Globulin (2.4-3.5) g/dL Albumin/Globulin Ratio (1.1-2.2) Urine Color Yellow (Yellow) Urine Clarity Cloudy A (Clear) Urine pH 6.5 (5.0-8.0) pH Units Ur Specific Conde 1.013 (1.010-1.025) Urine Protein Negative (Neg-Trace) mg/dL Urine Glucose (UA) >=1000 H (Normal) mg/dL Urine Ketones Negative (Negative) mg/dL Urine Blood Negative (Negative) Urine Nitrite Negative (Negative) Urine Bilirubin Negative (Negative) Urine Urobilinogen Normal (Normal) mg/dL Ur Leukocyte Esterase Trace H (Negative) Urine Microscopic RBC 0-3 (0-3) per hpf Urine Microscopic WBC 5-15 H (0-3) per hpf Ur Squamous Epith Cells Many H (None-Few) per lpf Urine Bacteria Few (None-Few) per hpf Hyaline Casts None Seen (None-Few) per lpf Ur Culture Indicated? YES A (NO) Urine Opiates Screen Negative (Hfddkl=384) ng/mL Ur Buprenorphine Scrn Negative (Cutoff=5) ng/mL Ur Barbiturates Screen Negative (Ombywf=731) ng/mL Ur Phencyclidine Scrn Negative (Cutoff=25) ng/mL Ur Amphetamines Screen Negative (Pqhdud=4976) ng/mL U Benzodiazepines Scrn Negative (Fdsxgr=042) ng/mL Urine Cocaine Screen Negative (Cutoff= 300) ng/mL U Marijuana (THC) Screen Negative (Cutoff = 50) ng/mL Ur Drug Screen Interp See Below Ethyl Alcohol (Less than 10) mg/dL 02/26/19 02/26/19 02/26/19 Range/Units 16:51 16:51 16:51 WBC (4.3-11.1) K/mcL RBC (3.82-4.97) M/mcL Hgb (11.5-15.4) g/dL Hct (35.3-44.9) % MCV (83.0-100.0) fL MCH (28.0-33.3) pg MCHC (31.6-35.5) g/dL RDW (11.5-14.5) % Plt Count (140-400) K/mcL MPV (9.4-12.4) fL Immature Gran % (0-4) % Seg Neutrophils % % Lymphocytes % % Monocytes % % Eosinophils % % Basophils % % Neutrophils # (1.6-8.9) K/mcL Lymphocytes # (0.6-4.6) K/mcL Monocytes # (0.0-1.3) K/mcL Eosinophils # (0.0-0.6) K/mcL Basophils # (0.0-0.2) K/mcL Platelet Estimate (Normal) PT 12.8 H (9.4-12.1) Seconds INR 1.1 APTT 35.7 (26.0-36.0) Seconds VBG pH (7.32-7.42) pH Units VBG pCO2 (41-51) mmHg VBG pO2 (25-50) mmHg VBG HCO3 (21-27) mEq/L Sodium 138 (136-145) mEq/L Potassium 3.9 (3.5-5.1) mEq/L Chloride 101 (98-107) mEq/L Carbon Dioxide 25 (23-29) mEq/L BUN 18 (6-20) mg/dL Creatinine 1.43 H (0.60-1.20) mg/dL Est GFR ( Amer) 46 L (> 60) Est GFR (Non-Af Amer) 38 L (> 60) BUN/Creatinine Ratio 13 (6-26) Glucose 280 H (70-105) mg/dL Calculated Osmolality 298 (280-300) Calcium 9.3 (8.6-10.3) mg/dL Total Bilirubin 1.6 H (0.3-1.0) mg/dL Direct Bilirubin 0.4 H (0.0-0.2) mg/dL Indirect Bilirubin 1.2 (0.0-1.2) mg/dL AST 39 (13-39) Units/L ALT 24 (7-52) Units/L Alkaline Phosphatase 134 H (34-104) Units/L Ammonia 121 H (16-53) mcmol/L Troponin I < 0.03 (< 0.04) ng/mL Serum Total Protein 8.3 (6.4-8.9) g/dL Albumin 3.9 (3.5-5.7) g/dL Globulin 4.4 H (2.4-3.5) g/dL Albumin/Globulin Ratio 0.9 L (1.1-2.2) Urine Color (Yellow) Urine Clarity (Clear) Urine pH (5.0-8.0) pH Units Ur Specific Conde (1.010-1.025) Urine Protein (Neg-Trace) mg/dL Urine Glucose (UA) (Normal) mg/dL Urine Ketones (Negative) mg/dL Urine Blood (Negative) Urine Nitrite (Negative) Urine Bilirubin (Negative) Urine Urobilinogen (Normal) mg/dL Ur Leukocyte Esterase (Negative) Urine Microscopic RBC (0-3) per hpf Urine Microscopic WBC (0-3) per hpf Ur Squamous Epith Cells (None-Few) per lpf Urine Bacteria (None-Few) per hpf Hyaline Casts (None-Few) per lpf Ur Culture Indicated? (NO) Urine Opiates Screen (Vufmey=520) ng/mL Ur Buprenorphine Scrn (Cutoff=5) ng/mL Ur Barbiturates Screen (Zhwpwm=787) ng/mL Ur Phencyclidine Scrn (Cutoff=25) ng/mL Ur Amphetamines Screen (Xdmtdo=0236) ng/mL U Benzodiazepines Scrn (Nagrcu=436) ng/mL Urine Cocaine Screen (Cutoff= 300) ng/mL U Marijuana (THC) Screen (Cutoff = 50) ng/mL Ur Drug Screen Interp Ethyl Alcohol < 10 (Less than 10) mg/dL 02/26/19 Range/Units 17:03 WBC (4.3-11.1) K/mcL RBC (3.82-4.97) M/mcL Hgb (11.5-15.4) g/dL Hct (35.3-44.9) % MCV (83.0-100.0) fL MCH (28.0-33.3) pg MCHC (31.6-35.5) g/dL RDW (11.5-14.5) % Plt Count (140-400) K/mcL MPV (9.4-12.4) fL Immature Gran % (0-4) % Seg Neutrophils % % Lymphocytes % % Monocytes % % Eosinophils % % Basophils % % Neutrophils # (1.6-8.9) K/mcL Lymphocytes # (0.6-4.6) K/mcL Monocytes # (0.0-1.3) K/mcL Eosinophils # (0.0-0.6) K/mcL Basophils # (0.0-0.2) K/mcL Platelet Estimate (Normal) PT (9.4-12.1) Seconds INR APTT (26.0-36.0) Seconds VBG pH 7.37 (7.32-7.42) pH Units VBG pCO2 44 (41-51) mmHg VBG pO2 36 (25-50) mmHg VBG HCO3 25 (21-27) mEq/L Sodium (136-145) mEq/L Potassium (3.5-5.1) mEq/L Chloride (98-107) mEq/L Carbon Dioxide (23-29) mEq/L BUN (6-20) mg/dL Creatinine (0.60-1.20) mg/dL Est GFR ( Amer) (> 60) Est GFR (Non-Af Amer) (> 60) BUN/Creatinine Ratio (6-26) Glucose (70-105) mg/dL Calculated Osmolality (280-300) Calcium (8.6-10.3) mg/dL Total Bilirubin (0.3-1.0) mg/dL Direct Bilirubin (0.0-0.2) mg/dL Indirect Bilirubin (0.0-1.2) mg/dL AST (13-39) Units/L ALT (7-52) Units/L Alkaline Phosphatase (34-104) Units/L Ammonia (16-53) mcmol/L Troponin I (< 0.04) ng/mL Serum Total Protein (6.4-8.9) g/dL Albumin (3.5-5.7) g/dL Globulin (2.4-3.5) g/dL Albumin/Globulin Ratio (1.1-2.2) Urine Color (Yellow) Urine Clarity (Clear) Urine pH (5.0-8.0) pH Units Ur Specific Conde (1.010-1.025) Urine Protein (Neg-Trace) mg/dL Urine Glucose (UA) (Normal) mg/dL Urine Ketones (Negative) mg/dL Urine Blood (Negative) Urine Nitrite (Negative) Urine Bilirubin (Negative) Urine Urobilinogen (Normal) mg/dL Ur Leukocyte Esterase (Negative) Urine Microscopic RBC (0-3) per hpf Urine Microscopic WBC (0-3) per hpf Ur Squamous Epith Cells (None-Few) per lpf Urine Bacteria (None-Few) per hpf Hyaline Casts (None-Few) per lpf Ur Culture Indicated? (NO) Urine Opiates Screen (Njvcgs=039) ng/mL Ur Buprenorphine Scrn (Cutoff=5) ng/mL Ur Barbiturates Screen (Zgnphv=854) ng/mL Ur Phencyclidine Scrn (Cutoff=25) ng/mL Ur Amphetamines Screen (Yclyvp=9457) ng/mL U Benzodiazepines Scrn (Aafgis=240) ng/mL Urine Cocaine Screen (Cutoff= 300) ng/mL U Marijuana (THC) Screen (Cutoff = 50) ng/mL Ur Drug Screen Interp Ethyl Alcohol (Less than 10) mg/dL TPA Checklist - LKW: 3-4.5 hrs Add. Warnings/Precautions Patient/family understanding: The patient/family members have been counseled and understood the risk, benefit, and alternatives of treatment. Attestation Statement - Attestation Attestation: I have seen this patient with the resident physician, I have personally evaluated this patient. I had reviewed the chart and document dictation by the resident physician and aM in agreement with the information documented by the resident physician. Please see documentation by the resident physician for complete chart including past medical history, family medical history, review of systems, current history and physical and laboratory and imaging studies. I was present for all procedures, provided direct supervision for all procedures, was present for the entirety of all procedures and provided direct guidance during the procedures. Please see documentation by the resident phys ician for any procedures performed. I have reviewed all interpretations of EKGs, and reviewed all EKGs performed on patient's as well. I have also reviewed reports of imaging as provided by radiology. Patient presented emergency department was few days of increasing confusion generalized weakness and unsteadiness on her feet, has a history of STEVEN, is already on lactulose but has had problems where she has had to be admitted when her ammonia level I up in the past and this is similar to that. She was sent in by the cancer center where she follows because of her chronic issues that are not cancer. Hematologic related. She has a history of low platelets in the past usually around 90-100,000. The patient denies any fevers chills denies any actual falls but has been unsteady denies headache neck pain chest pain or shortness of breath. She does endorse some nausea and vomiting today with a few episodes of vomiting but states she is now hungry has no abdominal pain. No black or bloody stool she states that the last episode of emesis had maybe a little bit of blood streaked. She is on the transplant list at [facility]. On physical exam she is alert and oriented, she is a little tired in appearance but nontoxic in appearance, question slight asterixis flap. No other focal rex rologic finding she is pleasant and alert awake smiling and interactive. Pupils are normal. Lungs are clear heart is regular abdomen soft and nontender. No rebound guarding or peritoneal sign. No rash or petechiae or jaundice. Basic laboratory studies are all within acceptable limits apart from an elevated ammonia level of 121 up from her baseline, with highest being [address] Head CT showed no acute findings. Urinalysis without infection. Stable thrombocytopenia. Patient will be admitted to the hospital for further management of hyperammonemia generalized weakness and unsteady gait.
[2019-02-27] MEDS ORDERED: Naloxone 0.4 MG/ML INJ IVP PRN (03:00)
[2019-02-27] MEDS ORDERED: *HR* Dextrose 50 % in Water (Syg) 50 ML SYRINGE IVP PRN (03:30)
[2019-02-27] MEDS ORDERED: D5% in Water 1,000 ML IVC PRN (03:30)
[2019-02-27] MEDS ORDERED: Dextrose Gel 15 GM/37.5 ML TUBE PO PRN ×2 (03:30)
--- NOTE | 2019-02-27 03:39 | Internal Med History&Physical ---
Date of Encounter: 02/27/19 Time of Encounter: 00:05 Internal Medicine - H&P: HPI Chief complaint: Hepatic encephalopathy Admitted From: Emergency Dept Plans for Post Hospital Care: Home History of present illness: Ms. Lock is a 58 year old female Patient presented to the emergency room after being seen at the cancer center for routine follow-up of her thrombocytopenia. While at her appointment she had multiple episodes of vomiting and some confusion. They recommended patient go to the emergency department for further evaluation. Patient does have a history of diabetes as well as liver disease secondary to STEVEN. had indicated that patient had also been having some falls at home and had been unsteady on her feet. In the emergency department patient's initial vital signs were within normal limits CBC notable for a platelet count of 98 BMP notable for a creatinine 1.43, GFR of 38, glucose of 280. Liver function tests demonstrated. Ammonia 121 Troponin less than 0.03 Urinalysis negative for infection Urine tox screen negative Blood alcohol level less than 10 Chest x-ray showed no evidence of acute cardiopulmonary disease Head CT showed no acute intracranial abnormality EKG showed normal sinus rhythm, QTC of 493. No ischemic changes In the emergency department, the patient received a 20 g dose of lactulose. She was admitted to the hospital for further management. Upon my evaluation, patient is resting comfortably in the hospital bed in no acute distress. She is oriented to place, name and birthdate. She had some difficulty with remembering the day and month. She denied chest pain, abdominal pain, nausea, vomiting, diarrhea and constipation. She answered questions appropriately and was cooperative with exam. She does take lactulose at home. She is a full code. She states that she is on a transplant list for a new liver. Past Med Surg Social Fam HX - Past Medical History Medical history: arthritis, cirrhosis, diabetes, GERD, hyperlipidemia, hypertension, liver disease, renal disease, other Additional medical history: ruptured disc Psychiatric history: depression - Past Surgical History Surgical History: cholecystectomy Additional surgical history: cardiac ablation, Back surgery. - Social History Smoking Status: Former smoker Smokeless Tobacco Status: No Alcohol use: none Drug use: none - Family History Mother Living Status: Hx Family Cardiac Disorders: Yes (multiple bypass) Hx Family Endocrine Disorder: Yes (type one diabetes) Father Living Status: Hx Family Endocrine Disorder: Yes (dm type 2) Internal Medicine - H&P: Meds Citalopram Hydrobromide [Celexa] 20 mg PO DAILY 03/28/15 [History] Glimepiride [Amaryl] 4 mg PO BID 03/28/15 [History] Omeprazole [PriLOSEC] 40 mg PO DAILY 03/28/15 [History] Simvastatin [Zocor] 40 mg PO HS 03/28/15 [History] traMADol [Ultram] 50 mg PO QID PRN 09/13/15 [History] Ferrous Sulfate [Iron] 325 mg PO DAILY 10/23/16 [History] Tizanidine HCl [Zanaflex] 4 mg PO TID PRN 10/23/16 [History] hydrOXYzine HCl [Hydroxyzine HCl] 25 mg PO Q6-8H PRN 10/23/16 [History] Gabapentin [Neurontin] 300 mg PO TID #90 capsule 11/12/16 [Rx] Cetirizine HCl [All Day Allergy] 10 mg PO DAILY 10/15/17 [History] Cholecalciferol (Vitamin D3) [Vitamin D3] 10,000 unit PO QWEEK 10/15/17 [History] Linagliptin [Tradjenta] 5 mg PO DAILY 10/15/17 [History] Liraglutide [Victoza 2-Colin] 1.8 mg SQ DAILY 10/15/17 [History] Lactulose 20 gm PO TID 12/04/17 [History] Furosemide [Lasix] 20 mg PO DAILY 01/10/18 [History] Spironolactone [Aldactone] 50 mg PO BID 01/10/18 [History] Insulin DETEMIR [Levemir] 38 unit SQ DAILY 04/17/18 [History] Propranolol [Inderal] 10 mg PO BID 09/01/18 [History] Rifaximin [Xifaxan] 550 mg PO BID 09/01/18 [History] Insulin LISPRO [Humalog] 24 units SQ 2-3XD 11/28/18 [History] Allergy/AdvReac Type Severity Reaction Status Date / Time amlodipine [From Norvasc] AdvReac Rash Verified 02/26/19 15:14 cephalexin [From Keflex] AdvReac Rash Verified 02/26/19 15:14 diltiazem [From Cardizem] AdvReac Rash Verified 02/26/19 15:14 FD and C blue no.1 AdvReac Itching Verified 02/26/19 15:14 [FD & C Blue No.1] lisinopril AdvReac Nausea Verified 02/26/19 15:14 Penicillins [PCN] AdvReac Rash Verified 02/26/19 15:14 All Systems PM: A 10-system review of systems was performed and is negative for pertinent findings except as documented above in the HPI. - Constitutional Vitals: Temp Pulse Resp BP Pulse Ox 98.3 F 61 14 109/61 99 02/27/19 00:21 02/27/19 00:21 02/27/19 00:21 02/27/19 00:21 02/27/19 00:21 General appearance: Present: cooperative, A&O X 2, pleasant, no acute distress, answers questions appropriately Exam: - - Head Head exam: Present: normal inspection - Eye Eye exam: Present: EOMI, normal appearance, sclera anicteric. Absent: scleral icterus - Neck Neck exam general surgery: Absent: tenderness - Respiratory Respiratory exam: Present: CTAB. Absent: rales, respiratory distress, rhonchi, wheezes - Cardiovascular Cardiovascular exam: Present: RRR. Absent: diastolic murmur, systolic murmur - GI/Abdominal GI/Abdominal exam: Present: normal bowel sounds, soft. Absent: tenderness - Extremities Exam Extremities exam: Present: warm, radial pulses palpable and symmetrical. Absent: calf tenderness, pedal edema, tenderness - Neurological Exam Neurological exam: Present: no focal deficits, strengths equal and symetr throughout. Absent: motor sensory deficit, facial droop, speech deficit - Skin Skin exam: Present: dry, normal color, warm Internal Med - H&P Results - Labs CBC & Chem 7: 02/26/19 16:51 02/26/19 16:51 Labs: Short CBC 02/26/19 Range/Units 16:51 WBC 4.8 (4.3-11.1) K/mcL Hgb 14.4 D (11.5-15.4) g/dL Hct 42.9 (35.3-44.9) % Plt Count 98 L (140-400) K/mcL Neutrophils # 3.7 (1.6-8.9) K/mcL BMP 02/26/19 16:51 Sodium 138 Potassium 3.9 Chloride 101 Carbon Dioxide 25 BUN 18 Creatinine 1.43 H Glucose 280 H Calcium 9.3 Cardiac Enzymes 02/26/19 Range/Units 16:51 Troponin I < 0.03 (< 0.04) ng/mL Liver Function 02/26/19 Range/Units 16:51 Total Bilirubin 1.6 H (0.3-1.0) mg/dL Direct Bilirubin 0.4 H (0.0-0.2) mg/dL AST 39 (13-39) Units/L ALT 24 (7-52) Units/L Alkaline Phosphatase 134 H (34-104) Units/L Albumin 3.9 (3.5-5.7) g/dL Urine 02/26/19 Range/Units 16:45 Urine Color Yellow (Yellow) Urine Clarity Cloudy A (Clear) Urine pH 6.5 (5.0-8.0) pH Units Ur Specific [place] 1.013 (1.010-1.025) Urine Protein Negative (Neg-Trace) mg/dL Urine Glucose (UA) >=1000 H (Normal) mg/dL - ABG Interpretation ABG results: 02/26/19 17:03 VBG pH 7.37 VBG pCO2 44 VBG pO2 36 VBG HCO3 25 - Impressions ITS Impressions Chest X-Ray 02/26/19 16:28 IMPRESSION: No evidence of acute cardiopulmonary disease. D/ / Scott Dobson MD / Scott Dobson MD Interpreting Provider: Scott Dobson MD Head CT 02/26/19 16:35 IMPRESSION: No acute intracranial abnormality. D/ / Percy Perea / ePrcy Perea Interpreting Provider: Percy Perea - Assessment and Plan (1) Hepatic encephalopathy Current Visit: No Status: Acute Assessment and plan: Patient's ammonia level was 121. She received a dose of lactulose in the emergency department. She has not had a bowel movement at this point. Continue lactulose, dosing every 1 hour until patient is a bowel movement. Then titrate to 3 bowel movements per day. Repeat ammonia level in the morning (2) Unsteady gait Current Visit: Yes Status: Acute Assessment and plan: Possibly secondary to hepatic encephalopathy. Management of elevated ammonia level as above PT OT consultation (3) Thrombocytopenia Current Visit: Yes Status: Acute Assessment and plan: Patient seen outpatient at the oncology/hematology center. 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 She is on a transplant list through [facility]. Continue to monitor (5) Type 2 diabetes mellitus Current Visit: No Status: Chronic Assessment and plan: Patient is an insulin dependent diabetic Monitor sugars ACHS Diabetic diet Low dose insulin sliding scale as needed Hold home meds. 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
[2019-02-27] MEDS: Lactulose Oral Soln 20 GM/30 ML UDC PO SCH ×3 (04:13→20:11)
[2019-02-27] MEDS: 0.9 % Sodium Chloride 1,000 ML IVC SCH ×2 (04:13→20:21)
[2019-02-27 05:26] LABS: Red Cell Distribution Width 14.6 % (11.5-14.5)
[2019-02-27 05:28] LABS: Hematocrit 35.3 % (35.3-44.9); Hemoglobin 11.9 g/dL (11.5-15.4); Immature Platelets 1.9 % (1.1-6.1); Mean Corpuscular HGB Conc 33.7 g/dL (31.6-35.5); Mean Corpuscular Hemoglobin 30.1 pg (28.0-33.3); Mean Corpuscular Volume 89.1 fL (83.0-100.0); Mean Platelet Volume 10.2 fL (9.4-12.4); Red Blood Count 3.96 M/mcL (3.82-4.97); White Blood Count 4.6 K/mcL (4.3-11.1)
[2019-02-27 05:34] LABS: INR 1.3; Prothrombin Time 14.6 Seconds (9.4-12.1)
[2019-02-27 05:47] LABS: Albumin 3.1 g/dL (3.5-5.7); Albumin/Globulin Ratio 0.9 (1.1-2.2); Bilirubin,Total 1.6 mg/dL (0.3-1.0); Calcium 8.9 mg/dL (8.6-10.3); Globulin 3.3 g/dL (2.4-3.5); Magnesium 1.9 mg/dL (1.6-2.6); Potassium 3.6 mEq/L (3.5-5.1); Total Protein 6.4 g/dL (6.4-8.9)
[2019-02-27] MEDS: Insulin LISPRO 300 UNITS/3 ML VIAL SQ SCH ×4 (08:43→20:11)
--- NOTE | 2019-02-27 11:55 | Internal Med Progress Note ---
Hospitalist Progress Note - Encounter Date of Encounter: 02/27/19 Time of Encounter: 11:50 - Subjective Interval History: Ms. Lock is a 58 year old female with a known past medical history of STEVEN, cirrhosis of liver, chronic thrombocytopenia, diabetes type II, HTN, HLD, Esophageal grade 1 varices and portal HTN gastropahty pt was sent to [facility] since pt looks weak, lethargic and confused. She also mentioned severe nausea with vomitings. She did notice some bright red blood in her vomitings. She did have an EGD done in 10/[address] Lan which showed Esophageal grade 1 varices and portal gastropathy. In the ER her ammonia level significantly elevated @ 121. She was admitted in the hospital and started her on Lactulose. Today is more alert, awake and O x 3, still looks little confused. She denied any CP / SOB. Denied any abd pain. Still has nausea but denied any more vomitings - Exam Vitals: Temp Pulse Resp BP Pulse Ox 98.1 F 79 16 137/76 97 02/27/19 11:12 02/27/19 11:12 02/27/19 11:12 02/27/19 11:12 02/27/19 11:12 Exam: Gen: Alert, awake, Oriented to time,place and person Chest: Diminished breath sounds B/L, No wheezing, No crackles, No rales Heart: S1S2+ RRR No murmurs Abd: Soft, NT, BS +, No organomegaly Ext: No edema, pulses are palpable, No calf tenderness Neuro : No acute focal neuro deficits noticed Skin: No rash. - Assessment and Plan (1) Hepatic encephalopathy Current Visit: No Status: Acute Assessment and Plan: Patient's ammonia level was 121 Improving... today @ 99 cont PO Lacctulose cont trend on ammonia level (2) Liver cirrhosis secondary to STEVEN Current Visit: No Status: Chronic Assessment and Plan: Long history of cirrhosis She is on a transplant list through [facility]. Continue to monitor (3) GI bleed Current Visit: Yes Status: Acute Assessment and Plan: Possible upper GI bleed with her h/o esophageal varices and portal gastropathy high risk for upper GI bleed consulted GI for further eval she may need EGD cont close monitoring Hb (4) Anemia Current Visit: Yes Status: Acute Assessment and Plan: Hb dropped down to 11.9 from 14.4 cont trend on Hb (5) Unsteady gait Current Visit: Yes Status: Acute Assessment and Plan: Possibly secondary to hepatic encephalopathy. Management of elevated ammonia level as above PT OT eval (6) Thrombocytopenia Current Visit: Yes Status: Acute Assessment and Plan: Chronic thrombocytopenia due to cirrhosis of liver her platelets dropped down to 74 from 98 cont close monitoring for now (7) Type 2 diabetes mellitus Current Visit: No Status: Chronic Assessment and Plan: on ADA diet and ISS (8) DVT prophylaxis Current Visit: Yes Status: Acute Assessment and Plan: SCDs - Time Spent with Patient Total time spent is greater than 50% in coordination of care (as documented) at patient's floor/unit and/or counseling patient: Internal Medicine: Result - Labs CBC & Chem 7: 02/27/19 05:14 02/27/19 05:14 Labs: Short CBC 02/26/19 02/27/19 Range/Units 16:51 05:14 WBC 4.8 4.6 (4.3-11.1) K/mcL Hgb 14.4 D 11.9 D (11.5-15.4) g/dL Hct 42.9 35.3 (35.3-44.9) % Plt Count 98 L 74 L (140-400) K/mcL Neutrophils # 3.7 (1.6-8.9) K/mcL BMP 02/26/19 02/27/19 16:51 05:14 Sodium 138 141 Potassium 3.9 3.6 Chloride 101 109 H Carbon Dioxide 25 23 BUN 18 18 Creatinine 1.43 H 1.28 H Glucose 280 H 131 H Calcium 9.3 8.9 Cardiac Enzymes 02/26/19 Range/Units 16:51 Troponin I < 0.03 (< 0.04) ng/mL Liver Function 02/26/19 02/27/19 Range/Units 16:51 05:14 Total Bilirubin 1.6 H 1.6 H (0.3-1.0) mg/dL Direct Bilirubin 0.4 H (0.0-0.2) mg/dL AST 39 31 (13-39) Units/L ALT 24 19 (7-52) Units/L Alkaline Phosphatase 134 H 113 H (34-104) Units/L Albumin 3.9 3.1 L (3.5-5.7) g/dL Urine 02/26/19 Range/Units 16:45 Urine Color Yellow (Yellow) Urine Clarity Cloudy A (Clear) Urine pH 6.5 (5.0-8.0) pH Units Ur Specific Marquez 1.013 (1.010-1.025) Urine Protein Negative (Neg-Trace) mg/dL Urine Glucose (UA) >=1000 H (Normal) mg/dL - ABG Interpretation ABG results: PT/INR, D-dimer PT 14.6 Seconds (9.4-12.1) H 02/27/19 05:14 - Impressions Impressions Chest X-Ray 02/26/19 16:28 IMPRESSION: No evidence of acute cardiopulmonary disease. D/ / Scott Dobson MD / Scott Dobson MD Interpreting Provider: Scott Dobson MD Head CT 02/26/19 16:35 IMPRESSION: No acute intracranial abnormality. D/ / Percy Perea / Percy Perea Interpreting Provider: Percy Perea Consult Discharge Plan - Plan Referrals: Aurora Yang CNP [Primary Care Provider] - (Appointment has been requested.) (7) Type 2 diabetes mellitus Qualifiers: Diabetes mellitus snf insulin use: without laborer marine terminal use Diabetes mellitus complication status: with kidney complications Diabetes mellitus complication detail: with nephropathy Qualified Code(s): E11.21 - Type 2 diabetes mellitus with diabetic nephropathy
--- NOTE | 2019-02-27 12:40 | Gastroenterology Consult Note ---
<Damien Irwin - Last Filed: 02/27/19 12:43> Date of Encounter: 02/27/19 Time of Encounter: 12:15 - Assessment and plan (1) Hepatic encephalopathy Current Visit: No Status: Acute Assessment and plan: Titrate Lactulose for 2-4 bowel movements daily. Start Rifaximin 550 mg BID. (2) GI bleed Current Visit: Yes Status: Acute Assessment and plan: One episode of hematemesis. Continue to monitor CBC. Hgb dropped from 14.4 to 11.9. Last EGD with Grade 1 varices, not likely to be cause of bleeding. If bleeding worsens and/or Hgb drops, call Dr. Lan over the weekend. If patient still admitted on Saturday, plan for EGD at that time. Qualifiers: GI bleed type/associated pathology: unspecified gastrointestinal hemorrhage type Qualified Code(s): K92.2 - Gastrointestinal hemorrhage, unspecified (3) Liver cirrhosis secondary to STEVEN Current Visit: No Status: Chronic Assessment and plan: MELD-Na 14 and Child-Mcgill class B. Last EGD 10/16/[address] Lan with grade 1 varices and moderate portal hypertensive gastropathy. AFP 5 on 11/25/2018. Last liver ultrasound 09/24/2018 with cirrhosis and no lesions noted. Titrate Lactulose for 2-4 bowel movements daily. Start Rifaximin 550 mg BID. Lifestyle Changes: 1. Total abstinence from alcohol including social drinking. 2. No smoking. 3. Gradual loss of weight. 4. Drink at least 3 cups of coffee due to its antioxidant effects in the liver, it reduces risk of HCC and advance fibrosis. 5. If needed, use less than 2 g/day of Tylenol (in divided doses). 6. Vaccination for Hep A, B, Pneumococcus if not already received and yearly influenza vaccination by PCP. 7. Avoid NSAIDS as can cause kidney damage. 8. Avoid benzodiazepines and other sedatives such as anti-histamines, narcotics etc. as can cause encephalopathy or confusion. 9. Take a late carbohydrate meal supplement as it reduces glucose production from protein breakdown and thus improves nutrition. 10. In cirrhosis, statins are safe to use and also improve portal hypertension and decrease risk of HCC. 11. Screening: Hepatocellular cancer screening: US of liver and AFP every 6 months - Time Spent With Patient Total time spent is greater than 50% in coordination of care (as documented) at patient's floor/unit and/or counseling patient: GI History of Present Illness - Data of Consult Patient: known to practice within the last 3 years Consult date: 02/27/19 Requesting Physician: Wayne Aleman MD - Consult Narrative Reason for consult: cirrhosis, decrease Hgb History of present illness: Ms. Lock is a 58 year old female with PMHx of cirrhosis secondary to STEVEN, DM, GERD, HLD, HTN, who [facility] multiple episodes of vomiting and encephalopathy. Patient reports bright red blood in her vomitus. On admission Hgb 14.4, platelets 98, INR 1.1 And today Hgb 11.9 with platelets 74, INR 1.3. Her last EGD Sep [address] Lan with grade 1 varices. She denies fever, chills, chest pain, shortness of breath, abdominal pain, vomiting, melena, or hematochezia. Procedures: EGD 10/16/2018 Dr. Lan: Grade 1 varices, moderate portal hypertensive gastropathy. EGD 12/30/2017 Dr. Lan: Grade 1 varices, moderate portal hypertensive gastropathy. EGD 10/15/2017 Dr. Lan: Grade 2 varices, moderate portal hypertensive gastropathy. EGD 10/23/2016 Dr. Lan: Grade 1-2 varices. Colonoscopy 09/20/2015 Dr. Lan: 4 mm hyperplastic polyp in the rectum, internal hemorrhoids, repeat 5 years. EGD 09/20/2015 Dr. Lan: Grade 2 varices, 4 bands successfully placed, portal hypertensive gastropathy. NSAIDs: None Anticoagulation: None Past Med Surg Social Fam HX - Past Medical History Medical history: arthritis, cirrhosis, diabetes, GERD, hyperlipidemia, hypertension, liver disease, renal disease, other Additional medical history: ruptured disc Psychiatric history: depression - Past Surgical History Surgical History: cholecystectomy Additional surgical history: cardiac ablation, Back surgery. - Social History Smoking Status: Former smoker Smokeless Tobacco Status: No Alcohol use: none Drug use: none - Family History Mother Living Status: Hx Family Cardiac Disorders: Yes (multiple bypass) Hx Family Endocrine Disorder: Yes (type one diabetes) Father Living Status: Hx Family Endocrine Disorder: Yes (dm type 2) - Gastrointestinal Gastrointestinal: Present: as per HPI - Constitutional Constitutional: as per HPI - EENT Eyes: as per HPI Ears: Present: as per HPI Nose, mouth and throat: Present: as per HPI - Cardiovascular Cardiovascular ROS: Present: as per HPI - Respiratory Respiratory IM: Present: as per HPI - Genitourinary Genitourinary: Absent: change in color, Urinary frequency - Neurological ROS Neurological GI: Present: as per HPI - Hematologic/Lymphatic Hematologic/Lymphatic pediatric: Present: as per HPI - Musculoskeletal Musculoskeletal ROS GI: Present: as per HPI - Integumentary Integumentary GI: Present: as per HPI - Psychiatric ROS Psychiatric GI: Present: as per HPI - Endocrine Endocrine IM: Present: as per HPI - Constitutional Vitals: Temp Pulse Resp BP Pulse Ox 98.1 F 79 16 137/76 97 02/27/19 11:12 02/27/19 11:12 02/27/19 11:12 02/27/19 11:12 02/27/19 11:12 General appearance: Present: cooperative, A&O X 3, no acute distress, answers questions appropriately - Head Head exam: Present: atraumatic, normocephalic - Eye Eye exam: Present: normal appearance, sclera anicteric - ENT ENT exam: Present: mucous membranes moist - Neck Neck exam general surgery: Present: normal inspection, trachea midline - Respiratory Respiratory exam: Present: CTAB. Absent: rales, rhonchi - Cardiovascular Cardiovascular exam: Present: RRR, +S1, +S2 - GI/Abdominal GI/Abdominal exam: Present: soft, no peritoneal signs. Absent: distended, firm, guarding, tenderness - Rectal Rectal exam: Present: deferred - Extremities Exam Extremities exam: Present: warm - Neurological Exam Neurological exam: Present: no focal deficits - Psychiatric Psychiatric exam: Present: normal affect, normal mood - Skin Skin exam: Present: dry, intact, normal color, warm Results - Labs CBC & Chem 7: 02/27/19 05:14 02/27/19 05:14 Labs: Last Result 02/27/19 05:14 Calcium 8.9 Entire Visit 02/27/19 02/27/19 02/27/19 05:14 05:14 05:14 Hgb 11.9 D Hct 35.3 PT 14.6 H Total Bilirubin 1.6 H AST 31 ALT 19 Ammonia 07/12/19 05:14 Hgb Hct PT Total Bilirubin AST ALT Ammonia 99 H - ABG ABG results: PT/INR, D-dimer PT 14.6 Seconds (9.4-12.1) H 02/27/19 05:14 - Impressions Impressions Chest X-Ray 02/26/19 16:28 IMPRESSION: No evidence of acute cardiopulmonary disease. D/ / Scott Dboson MD / Scott Dobson MD Interpreting Provider: Scott Dobson MD Head CT 02/26/19 16:35 IMPRESSION: No acute intracranial abnormality. D/ / Percy ePrea / Percy Perea Interpreting Provider: Percy Perea Consult Discharge Plan - Plan Additional Instructions: Home Health has been set up through [facility]. They will contact you with a date and time admission will be completed. If you need to contact them for any reason please call #[phone] or #[phone]. Referrals: Aurora Yang CNP [Primary Care Provider] - (Appointment has been requested.) <Brittani Lan - Last Filed: 02/27/19 15:47> Date of Encounter: 02/27/19 Time of Encounter: 13:00 - Time Spent With Patient Total time spent is greater than 50% in coordination of care (as documented) at patient's floor/unit and/or counseling patient: GI History of Present Illness - Data of Consult Requesting Physician: Wayne Aleman MD - Consult Narrative History of present illness: Ms. Lock is a 58 year old female - Constitutional Vitals: Temp Pulse Resp BP Pulse Ox 98.1 F 79 16 137/76 97 02/27/19 11:12 02/27/19 11:12 02/27/19 11:12 02/27/19 11:12 02/27/19 11:12 Results - Labs CBC & Chem 7: 02/27/19 05:14 02/27/19 05:14 Labs: Last Result 02/27/19 05:14 Calcium 8.9 Entire Visit 02/27/19 02/27/19 02/27/19 05:14 05:14 05:14 Hgb 11.9 D Hct 35.3 PT 14.6 H Total Bilirubin 1.6 H AST 31 ALT 19 Ammonia 02/27/19 05:14 Hgb Hct PT Total Bilirubin AST ALT Ammonia 99 H - ABG ABG results: PT/INR, D-dimer PT 14.6 Seconds (9.4-12.1) H 02/27/19 05:14 - Impressions Impressions Chest X-Ray 02/26/19 16:28 IMPRESSION: No evidence of acute cardiopulmonary disease. D/ / Scott Dobson MD / Scott Dobson MD Interpreting Provider: Scott Dobson MD Head CT 02/26/19 16:35 IMPRESSION: No acute intracranial abnormality. D/ / Percy Perea / Percy Perea Interpreting Provider: Percy Perea - Attending Attestation I have personally performed a face to face evaluation on this patient. I have reviewed and agree with the care plan. History and Exam by me shows: Pt seen at the bedside more alert and awake. Alert awake. Denies any vomiting but patient she vomited green color fluid and it was very mildly tinged pink in color. A: cirrhosis with encephalopathy, MELD-Na 14 and Child-Mcgill class B. Last EGD 10/16/[address] Lan with grade 1 varices and moderate portal hypertensive gastropathy. #2 encephalopathy but doing better. Recommendation: Drop in hemoglobin is most probably dilutional no signs of GI bleed. After discharge patient to follow with her GI/liver doctor at [facility].
--- NOTE | 2019-02-27 14:05 | Electrocardiograph Report ---
[address] [address] Test Date: 2019-02-26 Pat Name: Smiley Lock Department: [id number] Room: 3B21 Gender: F Note Specialist: : [id number] Requested By: Gerri Dhaliwal Order Number: [id number] Reading MD: Castro Kaiser Measurements Intervals [place] Rate: 75 P: 71 MN: 169 QRS: 70 QRSD: 101 T: 56 QT: 441 QTc: 493 Interpretive Statements Sinus rhythm Borderline prolonged QT interval Electronically Signed On 02-27-2019 14:03:41 EDT by Castro Kaiser
[2019-02-28 04:29] LABS: Basophils # 0.1 K/mcL (0.0-0.2); Basophils % 1.2 %; Eosinophils # 0.2 K/mcL (0.0-0.6); Eosinophils % 4.6 %; Hematocrit 35.3 % (35.3-44.9); Immature Granulocytes % 0.2 % (0-4); Lymphocytes # 1.1 K/mcL (0.6-4.6); Mean Corpuscular Hemoglobin 30.3 pg (28.0-33.3); Mean Corpuscular Volume 89.1 fL (83.0-100.0); Mean Platelet Volume 9.7 fL (9.4-12.4); Monocytes # 0.5 K/mcL (0.0-1.3); Monocytes % 10.4 %; Neutrophils # 3.1 K/mcL (1.6-8.9); Platelet Count 70 K/mcL (140-400); Red Blood Count 3.96 M/mcL (3.82-4.97); Red Cell Distribution Width 14.4 % (11.5-14.5); Segmented Neutrophils % 61.6 %
[2019-02-28 04:48] LABS: Albumin/Globulin Ratio 0.9 (1.1-2.2); Bilirubin,Total 1.6 mg/dL (0.3-1.0); Calcium 8.8 mg/dL (8.6-10.3); Globulin 3.4 g/dL (2.4-3.5); Potassium 3.9 mEq/L (3.5-5.1); Total Protein 6.4 g/dL (6.4-8.9)
[2019-02-28] MEDS ORDERED: traMADol 50 MG TABLET PO PRN (07:47)
[2019-02-28] MEDS ORDERED: tiZANidine 4 MG TABLET PO PRN (07:47)
[2019-02-28] MEDS: Insulin DETEMIR 100 UNIT/ML X5UNITS SQ SCH (08:21)
[2019-02-28] MEDS: Cholecalciferol (D-3) 1,000 UNIT (25MCG) TABLET PO SCH (08:21)
[2019-02-28] MEDS: Lactulose Oral Soln 20 GM/30 ML UDC PO SCH ×2 (08:21→21:16)
[2019-02-28] MEDS: Insulin LISPRO 300 UNITS/3 ML VIAL SQ SCH ×4 (08:21→21:20)
[2019-02-28] MEDS: Gabapentin 300 MG CAPSULE PO SCH ×3 (08:21→21:16)
[2019-02-28] MEDS: Furosemide 20 MG TABLET PO SCH (08:22)
--- NOTE | 2019-02-28 10:34 | Internal Med Progress Note ---
Hospitalist Progress Note - Encounter Date of Encounter: 02/28/19 Time of Encounter: 10:32 - Subjective Interval History: Patient seen and examined in the room. she seems more alert and oriented to this morning, but she also reported frequent confusion. She currently has no fever, chills, or night sweats. Because the patient mental status has not returned to baseline, she requires further treatment and a prolonged hospitalization. - Exam Vitals: Temp Pulse Resp BP Pulse Ox 98.3 F 77 15 142/79 97 02/28/19 07:50 02/28/19 07:50 02/28/19 07:50 02/28/19 07:50 02/28/19 07:50 Exam: Gen: Alert, awake, Oriented to time,place and person Chest: Diminished breath sounds B/L, No wheezing, No crackles, No rales Heart: S1S2+ RRR No murmurs Abd: Soft, NT, BS +, No organomegaly Ext: No edema, pulses are palpable, No calf tenderness Neuro : No acute focal neuro deficits noticed Skin: No rash. - Assessment and Plan (1) Thrombocytopenia Current Visit: Yes Status: Acute Assessment and Plan: Chronic thrombocytopenia due to cirrhosis of liver her platelets dropped down to 74 from 98 cont close monitoring for now (2) Liver cirrhosis secondary to STEVEN Current Visit: No Status: Chronic Assessment and Plan: Long history of cirrhosis She is on a transplant list through [facility]. Continue to monitor. GI following, appreciate help. (3) Type 2 diabetes mellitus Current Visit: No Status: Chronic Assessment and Plan: Glucose poorly controlled, home basal insulin resumed, hold bolus insulin for now because the patient on sliding scale, we will resume bolus insulin if blood glucose is still poorly controlled. (4) Hepatic encephalopathy Current Visit: Yes Status: Acute Assessment and Plan: Patient's ammonia level was 121 Improving... today @ 64. cont PO Lacctulose and Rifaximin. cont trend on ammonia level. GI following, appreciate help. (5) DVT prophylaxis Current Visit: Yes Status: Acute Assessment and Plan: SCDs (6) Unsteady gait Current Visit: Yes Status: Acute Assessment and Plan: Possibly secondary to hepatic encephalopathy. Management of elevated ammonia level as above PT/OT eval, recommended home health care. (7) GI bleed Current Visit: Yes Status: Acute Assessment and Plan: Possible upper GI bleed with her h/o esophageal varices and portal gastropathy high risk for upper GI bleed H/H stable, we will continue cycling. GI following, appreciate help. (8) Anemia Current Visit: Yes Status: Acute Assessment and Plan: Hb stable at 12. cont trend on Hb DVT Prophylaxis: SCDs. - Time Spent with Patient Total time spent is greater than 50% in coordination of care (as documented) at patient's floor/unit and/or counseling patient: Greater than 35 minutes Plan of Care Discussed with: patient Internal Medicine: Result - Labs CBC & Chem 7: 02/28/19 04:15 02/28/19 04:15 Labs: Short CBC 02/28/19 Range/Units 04:15 WBC 5.0 (4.3-11.1) K/mcL Hgb 12.0 (11.5-15.4) g/dL Hct 35.3 (35.3-44.9) % Plt Count 70 L (140-400) K/mcL Neutrophils # 3.1 (1.6-8.9) K/mcL BMP 02/28/19 04:15 Sodium 136 Potassium 3.9 Chloride 105 Carbon Dioxide 22 L BUN 17 Creatinine 1.23 H Glucose 270 H Calcium 8.8 Liver Function 02/28/19 Range/Units 04:15 Total Bilirubin 1.6 H (0.3-1.0) mg/dL AST 33 (13-39) Units/L ALT 20 (7-52) Units/L Alkaline Phosphatase 119 H (34-104) Units/L Albumin 3.0 L (3.5-5.7) g/dL - ABG Interpretation ABG results: PT/INR, D-dimer PT 14.6 Seconds (9.4-12.1) H 02/27/19 05:14 Consult Discharge Plan - Plan Additional Instructions: Home Health has been set up through [facility]. They will contact you with a date and time admission will be completed. If you need to contact them for any reason please call #[phone] or #[phone]. Referrals: Aurora Yang, OPS ANALYST [Primary Care Provider] - (Appointment has been requested.) (3) Type 2 diabetes mellitus Qualifiers: Diabetes mellitus fci insulin use: without middle or intermediate school principal use Diabetes mellitus complication status: with kidney complications Diabetes mellitus complication detail: with nephropathy Qualified Code(s): E11.21 - Type 2 diabetes mellitus with diabetic nephropathy (7) GI bleed Qualifiers: GI bleed type/associated pathology: unspecified gastrointestinal hemorrhage type Qualified Code(s): K92.2 - Gastrointestinal hemorrhage, unspecified
[2019-02-28] MEDS ORDERED: Melatonin 3 MG TABLET PO SCH (21:00)
[2019-03-01 02:15] LABS: Hematocrit 36.3 % (35.3-44.9); Hemoglobin 12.3 g/dL (11.5-15.4); Mean Corpuscular HGB Conc 33.9 g/dL (31.6-35.5); Mean Corpuscular Hemoglobin 30.2 pg (28.0-33.3); Mean Corpuscular Volume 89.2 fL (83.0-100.0); Mean Platelet Volume 9.7 fL (9.4-12.4); Red Blood Count 4.07 M/mcL (3.82-4.97); Red Cell Distribution Width 14.3 % (11.5-14.5); White Blood Count 6.5 K/mcL (4.3-11.1)
[2019-03-01 02:16] LABS: Platelet Count 80 K/mcL (140-400)
[2019-03-01 02:35] LABS: Albumin 3.1 g/dL (3.5-5.7); Bilirubin,Total 1.3 mg/dL (0.3-1.0); Calcium 8.8 mg/dL (8.6-10.3); Globulin 3.1 g/dL (2.4-3.5); Potassium 3.5 mEq/L (3.5-5.1); Total Protein 6.2 g/dL (6.4-8.9)
[2019-03-01] MEDS: Insulin LISPRO 300 UNITS/3 ML VIAL SQ SCH ×2 (08:30→13:02)
[2019-03-01] MEDS: Lactulose Oral Soln 20 GM/30 ML UDC PO SCH (08:30)
[2019-03-01] MEDS: Gabapentin 300 MG CAPSULE PO SCH (08:30)
[2019-03-01] MEDS: Cholecalciferol (D-3) 1,000 UNIT (25MCG) TABLET PO SCH (08:30)
[2019-03-01] MEDS: Furosemide 20 MG TABLET PO SCH (08:30)
[2019-03-01] MEDS: Insulin DETEMIR 100 UNIT/ML X5UNITS SQ SCH (08:35)
--- NOTE | 2019-03-01 09:52 | Discharge Summary ---
- NOTES TO OUTPATIENT PROVIDER Notes to Outpatient Provider: f/u with PCP and GI within 2 weeks. Date of Encounter: 03/01/19 Time of Encounter: 09:48 - Discharge Diagnosis (1) Hepatic encephalopathy Priority: Primary Status: Acute (2) Thrombocytopenia Priority: Secondary Status: Chronic (3) Liver cirrhosis secondary to STEVEN Priority: Secondary Status: Chronic (4) Type 2 diabetes mellitus Priority: Secondary Status: Chronic Qualifiers: Diabetes mellitus shelter insulin use: without ferry terminal supervisor use Diabetes mellitus complication status: with kidney complications Diabetes mellitus complication detail: with nephropathy Qualified Code(s): E11.21 - Type 2 diabetes mellitus with diabetic nephropathy (5) Unsteady gait Priority: Primary Status: Acute (6) GI bleed Priority: Primary Status: Suspected Qualifiers: GI bleed type/associated pathology: unspecified gastrointestinal hemorrhage type Qualified Code(s): K92.2 - Gastrointestinal hemorrhage, unspecified (7) Anemia Priority: Secondary Status: Chronic Qualifiers: Anemia type: unspecified type Qualified Code(s): D64.9 - Anemia, unspecified (8) DVT prophylaxis Priority: Primary Status: Acute Hospital course: Ms. Lock is a 58 year old female Patient presented to the emergency room after being seen at the cancer center for routine follow-up of her thrombocytopenia. While at her appointment she had multiple episodes of vomiting and some confusion. They recommended patient go to the emergency department for further evaluation. Patient does have a history of diabetes as well as liver disease secondary to STEVEN. had indicated that patient had also been having some falls at home and had been unsteady on her feet. In the emergency department patient's initial vital signs were within normal limits CBC notable for a platelet count of 98 BMP notable for a creatinine 1.43, GFR of 38, glucose of 280. Liver function tests demonstrated. Ammonia 121 Troponin less than 0.03 Urinalysis negative for infection Urine tox screen negative Blood alcohol level less than 10 Chest x-ray showed no evidence of acute cardiopulmonary disease Head CT showed no acute intracranial abnormality EKG showed normal sinus rhythm, QTC of 493. No ischemic changes In the emergency department, the patient received a 20 g dose of lactulose. She was admitted to the hospital for further management. Lactulose and rifaximin were continued, patient mental status continues to improve, as was blood ammonia level. GI was consulted, there was no evidence of GI bleeding or infection. After 2 days of treatment, patient mental status has returned to the baseline, ammonia currently at 61. Patient is discharged home today, she was instructed to continue take medications as prescribed to maintain at least 2-3 bowel movement a day, continue to follow-up with PCP, GI, and hepatology as scheduled. Discharge discussed with: patient Time spent discussing smoking cessation with patient: more than 10 minutes - Time Spent with Patient Total time spent providing and/or coordinating discharge services: Time spent: Greater than 30 minutes - Discharge Medications Prescriptions: New Lactulose 20 gm PO BID #60 udc Continued Simvastatin [Zocor] 40 mg PO HS Omeprazole [PriLOSEC] 40 mg PO DAILY Citalopram Hydrobromide [Celexa] 20 mg PO DAILY traMADol [Ultram] 50 mg PO QID PRN PRN Reason: Pain Tizanidine HCl [Zanaflex] 4 mg PO HS hydrOXYzine HCl [Hydroxyzine HCl] 25 mg PO TID PRN PRN Reason: Anxiety Ferrous Sulfate [Iron] 325 mg PO DAILY Gabapentin [Neurontin] 300 mg PO TID #90 capsule Cetirizine HCl [All Day Allergy] 10 mg PO DAILY Liraglutide [Victoza 2-Colin] 1.8 mg SQ DAILY Linagliptin [Tradjenta] 5 mg PO DAILY Cholecalciferol (Vitamin D3) [Vitamin D3] 10,000 unit PO TH Furosemide [Lasix] 20 mg PO DAILY Spironolactone [Aldactone] 100 mg PO DAILY Insulin DETEMIR [Levemir] 44 unit SQ HS Propranolol [Inderal] 10 mg PO BID Rifaximin [Xifaxan] 550 mg PO BID Insulin LISPRO [Humalog] 23 units SQ TID Melatonin 5 mg PO HS Potassium Chloride [K-Tab ER] 20 meq PO DAILY Home Medications: Citalopram Hydrobromide [Celexa] 20 mg PO DAILY 03/28/15 [History] Omeprazole [PriLOSEC] 40 mg PO DAILY 03/28/15 [History] Simvastatin [Zocor] 40 mg PO HS 03/28/15 [History] traMADol [Ultram] 50 mg PO QID PRN 09/13/15 [History] Ferrous Sulfate [Iron] 325 mg PO DAILY 10/23/16 [History] Tizanidine HCl [Zanaflex] 4 mg PO HS 10/23/16 [History] hydrOXYzine HCl [Hydroxyzine HCl] 25 mg PO TID PRN 10/23/16 [History] Gabapentin [Neurontin] 300 mg PO TID #90 capsule 11/12/16 [Rx] Cetirizine HCl [All Day Allergy] 10 mg PO DAILY 10/15/17 [History] Cholecalciferol (Vitamin D3) [Vitamin D3] 10,000 unit PO TH 10/15/17 [History] Linagliptin [Tradjenta] 5 mg PO DAILY 10/15/17 [History] Liraglutide [Victoza 2-Colin] 1.8 mg SQ DAILY 10/15/17 [History] Furosemide [Lasix] 20 mg PO DAILY 01/10/18 [History] Spironolactone [Aldactone] 100 mg PO DAILY 01/10/18 [History] Insulin DETEMIR [Levemir] 44 unit SQ HS 04/17/18 [History] Propranolol [Inderal] 10 mg PO BID 09/01/18 [History] Rifaximin [Xifaxan] 550 mg PO BID 09/01/18 [History] Insulin LISPRO [Humalog] 23 units SQ TID 11/28/18 [History] Melatonin 5 mg PO HS 02/28/19 [History] Potassium Chloride [K-Tab ER] 20 meq PO DAILY 02/28/19 [History] Lactulose 20 gm PO BID #60 udc 03/01/19 [Rx] Allergies/Adverse Reactions: Allergy/AdvReac Type Severity Reaction Status Date / Time amlodipine [From Norvasc] AdvReac Rash Verified 02/26/19 15:14 cephalexin [From Keflex] AdvReac Rash Verified 02/26/19 15:14 diltiazem [From Cardizem] AdvReac Rash Verified 02/26/19 15:14 FD and C blue no.1 AdvReac Itching Verified 02/26/19 15:14 [FD & C Blue No.1] lisinopril AdvReac Nausea Verified 02/26/19 15:14 Penicillins [PCN] AdvReac Rash Verified 02/26/19 15:14 Date of admission: 02/27/19 12:54 Primary care physician: Aurora Yang, Consults: 02/27/19 03:41 Consult to Physical Therapy [CONS] Routine Comment: Evaluate, develop and implement POC Reason for Consult: Falls at home. History of cirrhosis and hepatic encephalopathy Does patient have active BEDREST order?: No Is patient medically & hemodynamically stable?: Yes Patient assessed for mobility or mobilized this visit?: No 02/27/19 11:46 Consult to Gastroenterology [CONS] Routine Consulting Provider: [facility] [place] Reason for Consult: Acute anemia - GI bleed Time Notified: 11:47 Call Completed: Yes Anticipated date of discharge: 03/01/19 - Constitutional Vitals: Temp Pulse Resp BP Pulse Ox 98.1 F 64 16 108/65 98 03/01/19 08:12 03/01/19 08:12 03/01/19 08:12 03/01/19 08:12 03/01/19 08:12 General appearance: Present: cooperative, A&O X 3, pleasant, no acute distress, answers questions appropriately Exam: PHYSICAL EXAMINATION: GENERAL APPEARANCE: The patient is alert, oriented and in no acute distress. HEENT: Head is normocephalic. The sinuses are nontender. Pupils are equal and reactive. The nares are patent. Oropharynx clear without lesions. NECK: Supple without lymphadenopathy. HEART: Regular rate and rhythm. LUNGS: No crackles or wheezes are heard. ABDOMEN: Soft, nontender, nondistended with good bowel sounds heard. Inguinal area is normal. EXTREMITIES: Without cyanosis, clubbing or edema. NEUROLOGICAL: Gross nonfocal. SKIN: Warm and dry without any rash. - Patient Status Disposition: Home, Self-Care Condition: Good Functional capacity at discharge: independent ambulation Overall status at discharge: patient is progressing back to baseline - Discharge Instructions Follow Up With: Aurora Yang CNP [Primary Care Provider] - (Appointment has been requested.) Additional Instructions: Home Health has been set up through [facility]. They will contact you with a date and time admission will be completed. If you need to contact them for any reason please call #[phone] or #[phone]. - Diet and Activity Activity: increase activity as tolerated Diet: low fat, low cholesterol, low salt diet - VTE Documentation of Mechanical Device: Intermittent pneumatic compression device
[2019-03-01 11:40] VITALS: BP 114/77
--- NOTE | 2019-03-02 15:46 | Physician Discharge Referral ---
Home Health/Hosp Referral Info Transfer to: Home Health Provider in Charge Post Discharge: PCP - Diagnosis (1) Hepatic encephalopathy Priority: Primary Status: Acute (2) Thrombocytopenia Priority: Secondary Status: Chronic (3) Liver cirrhosis secondary to STEVEN Priority: Secondary Status: Chronic (4) Type 2 diabetes mellitus Priority: Secondary Status: Chronic (5) Unsteady gait Priority: Primary Status: Acute (6) GI bleed Priority: Secondary Status: Suspected (7) Anemia Priority: Secondary Status: Chronic (8) DVT prophylaxis Priority: Primary Status: Acute - Respiratory Orders Smoking Cessation: Smoking cessation has been advised. For more information, call the [place] Tobacco Quit Line at 2-136-UVSM-NOW. - Services Needed Following services are medically necessary services: Nursing, Physical Therapy, Occupational Therapy - Transfer Medications Prescriptions: Lactulose 20 gm PO BID #60 c Home Medications: Citalopram Hydrobromide [Celexa] 20 mg PO DAILY 03/28/15 [History] Omeprazole [PriLOSEC] 40 mg PO DAILY 03/28/15 [History] Simvastatin [Zocor] 40 mg PO HS 03/28/15 [History] traMADol [Ultram] 50 mg PO QID PRN 09/13/15 [History] Ferrous Sulfate [Iron] 325 mg PO DAILY 10/23/16 [History] Tizanidine HCl [Zanaflex] 4 mg PO HS 10/23/16 [History] hydrOXYzine HCl [Hydroxyzine HCl] 25 mg PO TID PRN 10/23/16 [History] Gabapentin [Neurontin] 300 mg PO TID #90 capsule 11/12/16 [Rx] Cetirizine HCl [All Day Allergy] 10 mg PO DAILY 10/15/17 [History] Cholecalciferol (Vitamin D3) [Vitamin D3] 10,000 unit PO TH 10/15/17 [History] Linagliptin [Tradjenta] 5 mg PO DAILY 10/15/17 [History] Liraglutide [Victoza 2-Colin] 1.8 mg SQ DAILY 10/15/17 [History] Furosemide [Lasix] 20 mg PO DAILY 01/10/18 [History] Spironolactone [Aldactone] 100 mg PO DAILY 01/10/18 [History] Insulin DETEMIR [Levemir] 44 unit SQ HS 04/17/18 [History] Propranolol [Inderal] 10 mg PO BID 09/01/18 [History] Rifaximin [Xifaxan] 550 mg PO BID 09/01/18 [History] Insulin LISPRO [Humalog] 23 units SQ TID 11/28/18 [History] Melatonin 5 mg PO HS 02/28/19 [History] Potassium Chloride [K-Tab ER] 20 meq PO DAILY 02/28/19 [History] Lactulose 20 gm PO BID #60 udc 03/01/19 [Rx] Allergies/Adverse Reactions: Allergy/AdvReac Type Severity Reaction Status Date / Time amlodipine [From Norvasc] AdvReac Rash Verified 02/26/19 15:14 cephalexin [From Keflex] AdvReac Rash Verified 02/26/19 15:14 diltiazem [From Cardizem] AdvReac Rash Verified 02/26/19 15:14 FD and C blue no.1 AdvReac Itching Verified 02/26/19 15:14 [FD & C Blue No.1] lisinopril AdvReac Nausea Verified 02/26/19 15:14 Penicillins [PCN] AdvReac Rash Verified 02/26/19 15:14 Certification: Further, I certify that my clinical findings support that this patient is homebound (i.e. absences from home require considerable and taxing effort and are for medical reasons or hinduism services or infrequently or short duration when for other reasons) because: Homebound Reason: Patient requires assistance of a person or device to safely leave home Attestation: My signature below is to certify that this patient is under my care and that I, or nurse practitioner, or a physician's development assistant working with me, has a [id number] encounter with this patient.
== END 2019-03-01 14:20 | disposition home or self-care (01) | DRG 442 ==
LOC: 3BNU 16:15 → EMEROOARM 16:15 → SUATTDRO 19:35 → 3BNU 20:14
PROVIDERS: ADMIT Internal Medicine; ATTEND Family Medicine

== ENCOUNTER 2019-06-02 13:41 | Observation (INO) ==
[2019-06-02] MEDS ORDERED: Naloxone 0.4 MG/ML INJ IVP PRN (15:50)
[2019-06-02] MEDS ORDERED: traMADol 50 MG TABLET PO PRN (15:50)
[2019-06-02] MEDS ORDERED: Ondansetron 4 MG/2 ML VIAL IVP PRN (15:50)
[2019-06-02] MEDS ORDERED: *HR* Dextrose 50 % in Water (Syg) 50 ML SYRINGE IVP PRN (16:25)
[2019-06-02] MEDS ORDERED: Dextrose Gel 15 GM/37.5 ML TUBE PO PRN ×2 (16:25)
[2019-06-02] MEDS ORDERED: D5% in Water 1,000 ML IVC PRN (16:25)
[2019-06-02 16:38] LABS: Albumin 3.4 g/dL (3.5-5.7); Albumin/Globulin Ratio 1.1 (1.1-2.2); Bilirubin,Total 1.8 mg/dL (0.3-1.0); Calcium 8.9 mg/dL (8.6-10.3); Globulin 3.2 g/dL (2.4-3.5); Magnesium 1.9 mg/dL (1.6-2.6); Phosphorous 3.5 mg/dL (2.7-4.5); Potassium 3.9 mEq/L (3.5-5.1); Total Protein 6.6 g/dL (6.4-8.9)
[2019-06-02] MEDS: 0.9 % Sodium Chloride 1,000 ML IVC SCH (17:25)
[2019-06-02] MEDS: Insulin LISPRO 300 UNITS/3 ML VIAL SQ SCH ×2 (17:29→17:30)
[2019-06-02] MEDS: Lactulose Oral Soln 20 GM/30 ML UDC PO SCH (20:47)
[2019-06-02] MEDS ORDERED: Melatonin 3 MG TABLET PO SCH (21:00)
[2019-06-02] MEDS ORDERED: tiZANidine 4 MG TABLET PO SCH (21:00)
[2019-06-02] MEDS ORDERED: Insulin DETEMIR 100 UNIT/ML X5UNITS SQ SCH (21:00)
[2019-06-02] MEDS ORDERED: Insulin LISPRO 300 UNITS/3 ML VIAL SQ SCH (21:00)
[2019-06-03 04:16] LABS: Bilirubin,Total 1.1 mg/dL (0.3-1.0); Calcium 8.4 mg/dL (8.6-10.3); Chol/HDL Ratio 2.9 (0-4.9); Globulin 2.9 g/dL (2.4-3.5); Magnesium 1.9 mg/dL (1.6-2.6); Phosphorous 4.1 mg/dL (2.7-4.5); Potassium 3.7 mEq/L (3.5-5.1); Total Protein 5.9 g/dL (6.4-8.9)
[2019-06-03] MEDS: 0.9 % Sodium Chloride 1,000 ML IVC SCH (04:37)
[2019-06-03] MEDS ORDERED: Loratadine 10 MG TABLET PO SCH (09:00)
[2019-06-03] MEDS ORDERED: Furosemide 20 MG TABLET PO SCH (09:00)
[2019-06-03] MEDS: Insulin LISPRO 300 UNITS/3 ML VIAL SQ SCH ×4 (09:21→12:53)
[2019-06-03] MEDS: Lactulose Oral Soln 20 GM/30 ML UDC PO SCH (09:22)
[2019-06-03 09:38] LABS: Estimated Average Glucose 240 mg/dl
[2019-06-03 13:02] VITALS: BP 108/67
[2019-06-04] MEDS ORDERED: Cholecalciferol (D-3) 1,000 UNIT (25MCG) TABLET PO SCH (09:00)
== END 2019-06-03 14:20 | disposition home or self-care (01) ==
LOC: 3BNU → SUATTDRO 15:24
PROVIDERS: ADMIT Internal Medicine; ATTEND Family Medicine

== ENCOUNTER 2019-07-20 16:44 | Inpatient (IN) ==
[2019-07-20] MEDS ORDERED: Naloxone 0.4 MG/ML INJ IVP PRN (21:13)
[2019-07-20] MEDS ORDERED: D5% in Water 1,000 ML IVC PRN (22:19)
[2019-07-20] MEDS ORDERED: *HR* Dextrose 50 % in Water (Syg) 50 ML SYRINGE IVP PRN (22:19)
[2019-07-20] MEDS ORDERED: Dextrose Gel 15 GM/37.5 ML TUBE PO PRN ×2 (22:19)
[2019-07-20] MEDS ORDERED: Lactulose Oral Soln 20 GM/30 ML UDC PO SCH (22:39)
[2019-07-21] MEDS: Lactulose 200 GM, Sodium Chloride IRRigation 700 ML RC SCH ×2 (00:42→07:54)
[2019-07-21] MEDS: Insulin LISPRO 300 UNITS/3 ML VIAL SQ SCH ×4 (00:42→16:44)
[2019-07-21 06:14] LABS: Basophils % 0.9 %; Hemoglobin 13.4 g/dL (11.5-15.4); Mean Corpuscular Hemoglobin 29.8 pg (28.0-33.3); Segmented Neutrophils % 80.8 %
[2019-07-21 06:16] LABS: Basophils # 0.1 K/mcL (0.0-0.2); Eosinophils # 0.1 K/mcL (0.0-0.6); Eosinophils % 0.9 %; Hematocrit 38.9 % (35.3-44.9); Immature Granulocytes % 0.2 % (0-4); Immature Platelets 3.2 % (1.1-6.1); Lymphocytes # 0.6 K/mcL (0.6-4.6); Lymphocytes % 10.5 %; Mean Corpuscular HGB Conc 34.4 g/dL (31.6-35.5); Mean Corpuscular Volume 86.4 fL (83.0-100.0); Monocytes # 0.4 K/mcL (0.0-1.3); Monocytes % 6.7 %; White Blood Count 5.6 K/mcL (4.3-11.1)
[2019-07-21 06:20] LABS: Neutrophils # 4.5 K/mcL (1.6-8.9); Platelet Count 51 K/mcL (140-400)
[2019-07-21 06:35] LABS: Albumin 3.2 g/dL (3.5-5.7); Albumin/Globulin Ratio 0.9 (1.1-2.2); Bilirubin,Direct 0.6 mg/dL (0.0-0.2); Bilirubin,Indirect 1.7 mg/dL (0.0-1.0); Bilirubin,Total 2.3 mg/dL (0.3-1.0); Calcium 8.9 mg/dL (8.6-10.3); Globulin 3.5 g/dL (2.4-3.5); Magnesium 1.8 mg/dL (1.6-2.6); Phosphorous 3.5 mg/dL (2.7-4.5); Total Protein 6.7 g/dL (6.4-8.9)
[2019-07-21] MEDS ORDERED: Bisacodyl 10 MG RECTAL SUPPOSITORY RC PRN (10:58)
[2019-07-21] MEDS: Lactulose Oral Soln 20 GM/30 ML UDC PO SCH ×2 (11:51→20:20)
[2019-07-21] MEDS ORDERED: 0.9 % Sodium Chloride 500 ML IVC SCH (13:15)
[2019-07-21 13:52] LABS: ABG Base Excess 0 mEq/L (-2 to 3); ABG HCO3 22 mEq/L (21-27); ABG Oxygen Saturation 95 % (95-98); ABG PCO2 29 mmHg (35-45); ABG PO2 66 mmHg (85-104); ABG TCO2 23 mEq/L (20-26)
[2019-07-21] MEDS: Insulin DETEMIR 100 UNIT/ML X5UNITS SQ SCH ×2 (14:31→20:20)
[2019-07-21] MEDS ORDERED: Haloperidol Lactate 5 MG/ML VIAL IM ONE ×2 (16:58→22:06)
[2019-07-21] MEDS ORDERED: Insulin LISPRO 300 UNITS/3 ML VIAL SQ SCH (21:00)
[2019-07-21] MEDS ORDERED: Lactulose Oral Soln 20 GM/30 ML UDC PO SCH (22:19)
[2019-07-21] MEDS ORDERED: Lactulose 200 GM/300 ML (for enema) RC SCH (22:57)
[2019-07-22 04:14] LABS: Eosinophils % 3.3 %; Mean Corpuscular HGB Conc 35.1 g/dL (31.6-35.5); Mean Corpuscular Hemoglobin 30.2 pg (28.0-33.3); Mean Platelet Volume 10.2 fL (9.4-12.4)
[2019-07-22 04:15] LABS: Basophils # 0.1 K/mcL (0.0-0.2); Basophils % 1.2 %; Eosinophils # 0.2 K/mcL (0.0-0.6); Hemoglobin 13.7 g/dL (11.5-15.4); Immature Granulocytes % 0.6 % (0-4); Immature Platelets 2.3 % (1.1-6.1); Lymphocytes # 1.1 K/mcL (0.6-4.6); Lymphocytes % 15.6 %; Mean Corpuscular Volume 86.1 fL (83.0-100.0); Monocytes # 0.6 K/mcL (0.0-1.3); Monocytes % 8.4 %; Neutrophils # 4.9 K/mcL (1.6-8.9); Platelet Count 58 K/mcL (140-400); Red Blood Count 4.53 M/mcL (3.82-4.97); Red Cell Distribution Width 14.9 % (11.5-14.5); Segmented Neutrophils % 70.9 %; White Blood Count 6.9 K/mcL (4.3-11.1)
[2019-07-22 04:40] LABS: Calcium 8.8 mg/dL (8.6-10.3); Potassium 3.9 mEq/L (3.5-5.1)
[2019-07-22] MEDS: Insulin LISPRO 300 UNITS/3 ML VIAL SQ SCH ×5 (09:11→21:22)
[2019-07-22] MEDS: Lactulose Oral Soln 20 GM/30 ML UDC PO SCH ×3 (09:11→21:12)
[2019-07-22] MEDS: Insulin DETEMIR 100 UNIT/ML X5UNITS SQ SCH ×2 (09:12→18:27)
[2019-07-22 09:14] LABS: Estimated Average Glucose 243 mg/dl
[2019-07-22] MEDS ORDERED: Dextrose Gel 15 GM/37.5 ML TUBE PO PRN (13:22)
[2019-07-23] MEDS: *HR* Enoxaparin 40 MG/0.4 ML SYRINGE SQ SCH (05:30)
[2019-07-23 06:42] LABS: Calcium 9.2 mg/dL (8.6-10.3); Potassium 3.6 mEq/L (3.5-5.1)
[2019-07-23] MEDS: Furosemide 20 MG TABLET PO SCH ×2 (08:23→08:41)
[2019-07-23] MEDS: Lactulose Oral Soln 20 GM/30 ML UDC PO SCH ×3 (08:24→21:40)
[2019-07-23] MEDS: Insulin LISPRO 300 UNITS/3 ML VIAL SQ SCH ×4 (08:31→21:42)
[2019-07-23] MEDS ORDERED: INSULIN DETEMIR 44 UNIT SQ SCH (09:00)
[2019-07-23] MEDS: Insulin DETEMIR 100 UNIT/ML X5UNITS SQ SCH (10:17)
[2019-07-23] MEDS ORDERED: Isovue-370 500 ML BOTTLE IVP ONE (16:10)
[2019-07-23] MEDS ORDERED: Ringers Solution, Lactated 500 ML IVC ONE (16:11)
[2019-07-24 05:50] LABS: Hematocrit 41.2 % (35.3-44.9)
[2019-07-24 05:51] LABS: Hemoglobin 14.1 g/dL (11.5-15.4); Mean Corpuscular HGB Conc 34.2 g/dL (31.6-35.5); Mean Corpuscular Hemoglobin 29.6 pg (28.0-33.3); Mean Corpuscular Volume 86.6 fL (83.0-100.0); Mean Platelet Volume 10.7 fL (9.4-12.4); Red Blood Count 4.76 M/mcL (3.82-4.97); Red Cell Distribution Width 15.1 % (11.5-14.5); White Blood Count 5.8 K/mcL (4.3-11.1)
[2019-07-24] MEDS: *HR* Enoxaparin 40 MG/0.4 ML SYRINGE SQ SCH (06:14)
[2019-07-24 07:53] VITALS: BP 152/79
[2019-07-24] MEDS ORDERED: metroNIDAZOLE 500 MG TABLET PO SCH (08:00)
[2019-07-24 08:22] LABS: Calcium 8.9 mg/dL (8.6-10.3); Magnesium 1.7 mg/dL (1.6-2.6)
[2019-07-24] MEDS ORDERED: Insulin DETEMIR 100 UNIT/ML X5UNITS SQ SCH (08:30)
[2019-07-24] MEDS: Lactulose Oral Soln 20 GM/30 ML UDC PO SCH (08:33)
[2019-07-24] MEDS: Furosemide 20 MG TABLET PO SCH (08:33)
[2019-07-24] MEDS: Insulin LISPRO 300 UNITS/3 ML VIAL SQ SCH (08:34)
== END 2019-07-24 11:20 | disposition home or self-care (01) | DRG 442 ==
LOC: 3ANU
PROVIDERS: ADMIT Internal Medicine; ATTEND Internal Medicine

== ENCOUNTER 2019-09-21 15:43 | Inpatient (IN) ==
[2019-09-21] MEDS ORDERED: Ondansetron 4 MG/2 ML VIAL IVP PRN (20:16)
[2019-09-21] MEDS ORDERED: Naloxone 0.4 MG/ML INJ IVP PRN (20:16)
[2019-09-21] MEDS ORDERED: *HR* Dextrose 50 % in Water (Syg) 50 ML SYRINGE IVP PRN (20:41)
[2019-09-21] MEDS ORDERED: D5% in Water 1,000 ML IVC PRN (20:41)
[2019-09-21] MEDS ORDERED: Dextrose Gel 15 GM/37.5 ML TUBE PO PRN ×2 (20:41)
[2019-09-21] MEDS: Lactulose Oral Soln 20 GM/30 ML UDC PO SCH (21:43)
[2019-09-21] MEDS: Insulin DETEMIR 100 UNIT/ML X5UNITS SQ SCH (21:43)
[2019-09-21 21:56] LABS: Basophils # 0.1 K/mcL (0.0-0.2); Basophils % 1.1 %; Eosinophils # 0.1 K/mcL (0.0-0.6); Eosinophils % 2.5 %; Hematocrit 36.6 % (35.3-44.9); Hemoglobin 12.8 g/dL (11.5-15.4); Immature Granulocytes % 0.4 % (0-4); Lymphocytes # 0.9 K/mcL (0.6-4.6); Mean Corpuscular Hemoglobin 30.3 pg (28.0-33.3); Mean Corpuscular Volume 86.5 fL (83.0-100.0); Mean Platelet Volume 9.8 fL (9.4-12.4); Monocytes # 0.4 K/mcL (0.0-1.3); Monocytes % 7.6 %; Neutrophils # 3.3 K/mcL (1.6-8.9); Red Blood Count 4.23 M/mcL (3.82-4.97); Red Cell Distribution Width 15.7 % (11.5-14.5); Segmented Neutrophils % 69.4 %; White Blood Count 4.7 K/mcL (4.3-11.1)
[2019-09-21 21:57] LABS: Platelet Count 48 K/mcL (140-400)
[2019-09-21] MEDS: Insulin LISPRO 300 UNITS/3 ML VIAL SQ SCH (22:01)
[2019-09-21 22:02] LABS: INR 1.3; Prothrombin Time 14.7 Seconds (9.4-12.1)
[2019-09-21 22:05] LABS: Activated Partial Thrombo Time 33.8 Seconds (26.0-36.0)
[2019-09-21 22:15] LABS: Bilirubin,Direct 0.9 mg/dL (0.0-0.2); Bilirubin,Total 2.9 mg/dL (0.3-1.0)
[2019-09-21 22:18] LABS: Alanine Aminotransferase 29 Units/L (7-52); Albumin 3.1 g/dL (3.5-5.7); Albumin/Globulin Ratio 1.1 (1.1-2.2); Alkaline Phosphatase 144 Units/L (34-104); Aspartate Amino Transferase 41 Units/L (13-39); BUN/Creatinine Ratio 17 (6-26); Bilirubin,Total 2.7 mg/dL (0.3-1.0); Blood Urea Nitrogen 19 mg/dL (6-20); Calcium 8.5 mg/dL (8.6-10.3); Carbon Dioxide 19 mEq/L (23-29); Chloride 109 mEq/L (98-107); Globulin 2.9 g/dL (2.4-3.5); Glucose 264 mg/dL (70-105); Magnesium 1.8 mg/dL (1.6-2.6); Osmolality,Calculated 299 (280-300); Phosphorous 3.3 mg/dL (2.7-4.5); Potassium 4.1 mEq/L (3.5-5.1); Sodium 139 mEq/L (136-145); Troponin I < 0.03 ng/mL (< 0.04); eGFR For African Americans > 60 (> 60); eGFR For Non-African Americans 51 (> 60)
[2019-09-21 22:46] LABS: Estimated Average Glucose 194 mg/dl
[2019-09-22 00:48] LABS: Bilirubin,Urine Negative (Negative); Blood,Urine Trace (Negative); Clarity,Urine Clear (Clear); Color,Urine Yellow (Yellow); Glucose,Urine (UA) 500 mg/dL (Normal); Ketones,Urine Negative (Negative); Leukocyte Esterase,Urine Negative (Negative); Nitrite,Urine Negative (Negative); Protein,Urine Negative (Neg-Trace); Urobilinogen,Urine Normal (Normal)
[2019-09-22 00:51] LABS: Bacteria,Urine None Seen per hpf (None-Few); Hyaline Casts,Urine None Seen per lpf (None-Few); Squamous Epithelial Cell,Urine None Seen per lpf (None-Few); WBC,Urine 0-3 per hpf (0-3)
[2019-09-22 00:56] LABS: Amphetamine Screen,Urine Negative ng/mL (Cutoff=1000); Barbiturate Screen,Urine Negative ng/mL (Cutoff=200); Benzodiazepines Screen,Urine Negative ng/mL (Cutoff=200); Cannabinoid Screen,Urine Negative ng/mL (Cutoff = 50); Cocaine Screen,Urine Negative ng/mL (Cutoff= 300); Opiate Screen,Urine Negative ng/mL (Cutoff=300); Phencyclidine Screen,Urine Negative ng/mL (Cutoff=25)
[2019-09-22] MEDS: Furosemide 20 MG TABLET PO SCH (09:59)
[2019-09-22] MEDS: Insulin LISPRO 300 UNITS/3 ML VIAL SQ SCH ×3 (10:00→16:20)
[2019-09-22] MEDS: Lactulose Oral Soln 20 GM/30 ML UDC PO SCH ×2 (10:00→22:05)
[2019-09-22] MEDS ORDERED: Lactulose Oral Soln 20 GM/30 ML UDC PO SCH ×2 (13:00→16:00)
[2019-09-22] MEDS: Zinc Sulfate 220 MG CAPSULE PO SCH (13:40)
[2019-09-22] MEDS: Insulin DETEMIR 100 UNIT/ML X5UNITS SQ SCH (22:05)
[2019-09-22] MEDS ORDERED: Insulin LISPRO 300 UNITS/3 ML VIAL SQ SCH (22:30)
[2019-09-23 04:34] LABS: Immature Granulocytes % 0.7 % (0-4)
[2019-09-23 04:36] LABS: Basophils # 0.1 K/mcL (0.0-0.2); Basophils % 0.6 %; Eosinophils # 0.2 K/mcL (0.0-0.6); Eosinophils % 2.5 %; Hematocrit 41.2 % (35.3-44.9); Immature Platelets 2.5 % (1.1-6.1); Lymphocytes % 11.8 %; Mean Corpuscular Hemoglobin 30.2 pg (28.0-33.3); Mean Platelet Volume 10.7 fL (9.4-12.4); Monocytes # 0.6 K/mcL (0.0-1.3); Monocytes % 7.2 %; Neutrophils # 6.3 K/mcL (1.6-8.9); Red Blood Count 4.63 M/mcL (3.82-4.97); Red Cell Distribution Width 15.6 % (11.5-14.5); Segmented Neutrophils % 77.2 %; White Blood Count 8.2 K/mcL (4.3-11.1)
[2019-09-23 04:39] LABS: Platelet Count 58 K/mcL (140-400)
[2019-09-23 04:48] LABS: Albumin 3.1 g/dL (3.5-5.7); Albumin/Globulin Ratio 0.9 (1.1-2.2); Bilirubin,Direct 0.6 mg/dL (0.0-0.2); Bilirubin,Indirect 1.3 mg/dL (0.0-1.0); Bilirubin,Total 1.9 mg/dL (0.3-1.0); Globulin 3.4 g/dL (2.4-3.5); Total Protein 6.5 g/dL (6.4-8.9)
[2019-09-23 04:50] LABS: Calcium 9.3 mg/dL (8.6-10.3); Potassium 4.4 mEq/L (3.5-5.1)
[2019-09-23] MEDS ORDERED: ZINC GLUCONATE 100 MG PO SCH (09:00)
[2019-09-23] MEDS: Zinc Sulfate 220 MG CAPSULE PO SCH (09:09)
[2019-09-23] MEDS: Insulin LISPRO 300 UNITS/3 ML VIAL SQ SCH ×2 (09:09→12:16)
[2019-09-23] MEDS: Furosemide 20 MG TABLET PO SCH (09:09)
[2019-09-23] MEDS: Lactulose Oral Soln 20 GM/30 ML UDC PO SCH ×2 (09:09→12:17)
[2019-09-23 11:08] VITALS: BP 127/67
== END 2019-09-23 14:33 | disposition home health service (06) | DRG 442 ==
LOC: 3BNU → SUATTDRO 18:36
PROVIDERS: ADMIT Internal Medicine; ATTEND Internal Medicine

== ENCOUNTER 2019-10-24 16:27 | Inpatient (IN) ==
[2019-10-24] MEDS ORDERED: *HR* OxyCODONE Immed Rel 5 MG TABLET PO ONE (19:11)
[2019-10-24] MEDS ORDERED: Insulin Human Regular 10 UNIT in 0.9 % Sodium Chloride 10 ML IV ONE (19:26)
[2019-10-24] MEDS ORDERED: Naloxone 0.4 MG/ML INJ IVP PRN (19:27)
[2019-10-24] MEDS ORDERED: *HR* Metoprolol 5 MG/5 ML VIAL IVP PRN (19:54)
[2019-10-24] MEDS ORDERED: Azithromycin 500 MG in 0.9 % Sodium Chloride 250 ML IVPB SCH (20:00)
[2019-10-24] MEDS ORDERED: Vancomycin (wt based) 1,000 MG VIAL IVPB SCH (20:00)
[2019-10-24] MEDS ORDERED: Insulin LISPRO 300 UNITS/3 ML VIAL SQ SCH ×2 (20:00→21:00)
[2019-10-24] MEDS ORDERED: Dextrose Gel 15 GM/37.5 ML TUBE PO PRN ×2 (20:06)
[2019-10-24] MEDS ORDERED: *HR* Dextrose 50 % in Water (Syg) 50 ML SYRINGE IVP PRN (20:06)
[2019-10-24] MEDS ORDERED: D5% in Water 1,000 ML IVC PRN (20:06)
[2019-10-24 20:33] LABS: ABG Base Excess -4 mEq/L (-2 to 3); ABG HCO3 20 mEq/L (21-27); ABG Oxygen Saturation 91 % (95-98); ABG PCO2 31 mmHg (35-45); ABG PH 7.42 pH Units (7.32-7.45); ABG PO2 59 mmHg (85-104); ABG TCO2 21 mEq/L (20-26)
[2019-10-24 20:35] LABS: Basophils # 0.1 K/mcL (0.0-0.2); Basophils % 0.8 %; Eosinophils # 0.3 K/mcL (0.0-0.6); Eosinophils % 2.4 %; Hematocrit 38.3 % (35.3-44.9); Hemoglobin 12.5 g/dL (11.5-15.4); Lymphocytes % 9.3 %; Mean Corpuscular HGB Conc 32.6 g/dL (31.6-35.5); Mean Corpuscular Volume 91.8 fL (83.0-100.0); Mean Platelet Volume 10.1 fL (9.4-12.4); Monocytes # 0.7 K/mcL (0.0-1.3); Monocytes % 6.4 %; Neutrophils # 8.5 K/mcL (1.6-8.9); Platelet Count 108 K/mcL (140-400); Red Blood Count 4.17 M/mcL (3.82-4.97); Red Cell Distribution Width 16.9 % (11.5-14.5); Segmented Neutrophils % 80.1 %; White Blood Count 10.6 K/mcL (4.3-11.1)
[2019-10-24 20:40] LABS: Estimated Average Glucose 200 mg/dl
[2019-10-24 20:43] LABS: INR 1.3; Prothrombin Time 15.1 Seconds (9.4-12.1)
[2019-10-24] MEDS ORDERED: Insulin DETEMIR 100 UNIT/ML X5UNITS SQ SCH (21:00)
[2019-10-24 21:03] LABS: Magnesium 1.9 mg/dL (1.6-2.6); Phosphorous 2.5 mg/dL (2.7-4.5); Troponin I 0.03 ng/mL (< 0.04)
[2019-10-24 21:22] LABS: Calcium 8.2 mg/dL (8.6-10.3); Potassium 3.9 mEq/L (3.5-5.1)
[2019-10-24] MEDS: levoFLOXacin 750 MG/150 ML 750 MG/150 ML BAG IVPB SCH (22:26)
[2019-10-24] MEDS: Insulin DETEMIR 100 UNIT/ML X5UNITS SQ SCH (22:31)
[2019-10-25] MEDS ORDERED: Meropenem 1,000 MG in Water for inj. (sterile) 20 ML IVP SCH
[2019-10-25] MEDS: Ipratropium/Albuterol Neb 3 ML IH PRN ×2 (03:42→08:02)
[2019-10-25] MEDS: *HR* Heparin 5,000 UNIT/ML VIAL SQ SCH ×2 (06:44→16:38)
[2019-10-25] MEDS: Furosemide 40 MG/4 ML VIAL IVP SCH ×2 (06:44→21:43)
[2019-10-25] MEDS ORDERED: Aminoglycoside Consult 1 EACH MC ONE (07:44)
[2019-10-25 07:52] LABS: Bilirubin,Urine Negative (Negative); Blood,Urine Moderate (Negative); Clarity,Urine Cloudy (Clear); Color,Urine Yellow (Yellow); Glucose,Urine (UA) Normal (Normal); Ketones,Urine Negative (Negative); Leukocyte Esterase,Urine Large (Negative); Nitrite,Urine Negative (Negative); Protein,Urine Negative (Neg-Trace); Specific Gravity,Urine 1.012 (1.010-1.025); Urobilinogen,Urine Normal (Normal)
[2019-10-25] MEDS: Insulin LISPRO 300 UNITS/3 ML VIAL SQ SCH ×4 (07:52→21:48)
[2019-10-25] MEDS: levoFLOXacin 750 MG/150 ML 750 MG/150 ML BAG IVPB SCH (07:53)
[2019-10-25] MEDS: Nystatin POWDER 30 GM BOTTLE TP SCH ×2 (07:54→21:47)
[2019-10-25 07:55] LABS: Bacteria,Urine None Seen per hpf (None-Few); Hyaline Casts,Urine None Seen per lpf (None-Few); RBC,Urine 0-3 per hpf (0-3); Squamous Epithelial Cell,Urine Many per lpf (None-Few); WBC,Urine 50-100 per hpf (0-3)
[2019-10-25] MEDS ORDERED: Acetaminophen 325 MG TABLET PO PRN (13:25)
[2019-10-25] MEDS ORDERED: hydrOXYzine pamoate 25 MG CAPSULE PO PRN (14:30)
[2019-10-25] MEDS ORDERED: tiZANidine 4 MG TABLET PO PRN (14:30)
[2019-10-25 14:41] LABS: Adenovirus Not Detected (Not Detect); Bordetella Pertussis Not Detected (Not Detect); Chlamydophila pneumoniae Not Detected (Not Detect); Coronavirus 229E DETECTED (Not Detect); Coronavirus HKU1 Not Detected (Not Detect); Coronavirus NL63 Not Detected (Not Detect); Coronavirus OC43 Not Detected (Not Detect); Human Metapneumovirus Not Detected (Not Detect); Human Rhinovirus/Enterovirus Not Detected (Not Detect); Influenza A Subtype 2009 H1 Not Detected (Not Detect); Influenza B Not Detected (Not Detect); Mycoplasma pneumoniae Not Detected (Not Detect); Parainfluenza Virus 1 Not Detected (Not Detect); Parainfluenza Virus 2 Not Detected (Not Detect); Parainfluenza Virus 3 Not Detected (Not Detect); Parainfluenza Virus 4 Not Detected (Not Detect); Respiratory Syncytial Virus Not Detected (Not Detect)
[2019-10-25] MEDS: Lactulose Oral Soln 20 GM/30 ML UDC PO SCH ×2 (16:37→21:50)
[2019-10-25] MEDS: Gabapentin 300 MG CAPSULE PO SCH ×2 (16:38→21:46)
[2019-10-25] MEDS ORDERED: Insulin DETEMIR 100 UNIT/ML X5UNITS SQ SCH (21:00)
[2019-10-26] MEDS: *HR* Heparin 5,000 UNIT/ML VIAL SQ SCH ×2 (05:30→17:15)
[2019-10-26] MEDS: Insulin DETEMIR 100 UNIT/ML X5UNITS SQ SCH ×3 (05:33→21:36)
[2019-10-26] MEDS: Furosemide 40 MG/4 ML VIAL IVP SCH (07:11)
[2019-10-26] MEDS: Loratadine 10 MG TABLET PO SCH (07:11)
[2019-10-26] MEDS: levoFLOXacin 750 MG/150 ML 750 MG/150 ML BAG IVPB SCH (07:12)
[2019-10-26] MEDS: Lactulose Oral Soln 20 GM/30 ML UDC PO SCH ×3 (07:12→21:38)
[2019-10-26] MEDS: Gabapentin 300 MG CAPSULE PO SCH ×4 (07:12→21:37)
[2019-10-26] MEDS: Zinc Sulfate 220 MG CAPSULE PO SCH (07:12)
[2019-10-26] MEDS: Nystatin POWDER 30 GM BOTTLE TP SCH ×2 (07:15→21:08)
[2019-10-26] MEDS: Insulin LISPRO 300 UNITS/3 ML VIAL SQ SCH ×4 (07:17→21:37)
[2019-10-26 08:25] LABS: Basophils # 0.2 K/mcL (0.0-0.2); Basophils % 1.5 %; Eosinophils # 0.5 K/mcL (0.0-0.6); Eosinophils % 4.5 %; Hematocrit 37.2 % (35.3-44.9); Hemoglobin 12.2 g/dL (11.5-15.4); Immature Granulocytes % 1.7 % (0-4); Lymphocytes # 1.2 K/mcL (0.6-4.6); Lymphocytes % 10.1 %; Mean Corpuscular HGB Conc 32.8 g/dL (31.6-35.5); Mean Corpuscular Volume 91.4 fL (83.0-100.0); Monocytes # 1.1 K/mcL (0.0-1.3); Monocytes % 9.4 %; Neutrophils # 8.3 K/mcL (1.6-8.9); Platelet Count 147 K/mcL (140-400); Red Blood Count 4.07 M/mcL (3.82-4.97); Red Cell Distribution Width 17.1 % (11.5-14.5); Segmented Neutrophils % 72.8 %; White Blood Count 11.4 K/mcL (4.3-11.1)
[2019-10-26 08:45] LABS: Calcium 8.6 mg/dL (8.6-10.3); Potassium 2.9 mEq/L (3.5-5.1)
[2019-10-26] MEDS: Ipratropium/Albuterol Neb 3 ML IH PRN ×2 (14:21→19:45)
[2019-10-26] MEDS: Furosemide 40 MG TABLET PO SCH (17:14)
[2019-10-27 03:43] LABS: Basophils % 1.1 %; Immature Granulocytes % 1.6 % (0-4); Lymphocytes % 11.5 %; Red Cell Distribution Width 17.4 % (11.5-14.5)
[2019-10-27 03:44] LABS: Basophils # 0.1 K/mcL (0.0-0.2); Eosinophils # 0.4 K/mcL (0.0-0.6); Eosinophils % 3.8 %; Hematocrit 34.7 % (35.3-44.9); Hemoglobin 11.3 g/dL (11.5-15.4); Lymphocytes # 1.1 K/mcL (0.6-4.6); Mean Corpuscular HGB Conc 32.6 g/dL (31.6-35.5); Mean Corpuscular Hemoglobin 30.1 pg (28.0-33.3); Mean Corpuscular Volume 92.3 fL (83.0-100.0); Mean Platelet Volume 9.8 fL (9.4-12.4); Monocytes # 0.8 K/mcL (0.0-1.3); Monocytes % 8.4 %; Neutrophils # 7.3 K/mcL (1.6-8.9); Red Blood Count 3.76 M/mcL (3.82-4.97); Segmented Neutrophils % 73.6 %; White Blood Count 9.9 K/mcL (4.3-11.1)
[2019-10-27 03:47] LABS: Platelet Count 97 K/mcL (140-400)
[2019-10-27 03:48] LABS: Platelet Estimate Decreased (Normal)
[2019-10-27 03:58] LABS: Potassium 3.6 mEq/L (3.5-5.1)
[2019-10-27] MEDS: *HR* Heparin 5,000 UNIT/ML VIAL SQ SCH ×2 (05:23→17:02)
[2019-10-27] MEDS: Insulin LISPRO 300 UNITS/3 ML VIAL SQ SCH ×4 (07:41→20:31)
[2019-10-27] MEDS: Gabapentin 300 MG CAPSULE PO SCH ×4 (07:42→20:30)
[2019-10-27] MEDS: Furosemide 40 MG TABLET PO SCH ×2 (07:42→17:02)
[2019-10-27] MEDS: Loratadine 10 MG TABLET PO SCH (07:42)
[2019-10-27] MEDS: Lactulose Oral Soln 20 GM/30 ML UDC PO SCH ×3 (07:42→20:31)
[2019-10-27] MEDS: Zinc Sulfate 220 MG CAPSULE PO SCH (07:42)
[2019-10-27] MEDS: levoFLOXacin 750 MG/150 ML 750 MG/150 ML BAG IVPB SCH (07:43)
[2019-10-27] MEDS: Insulin DETEMIR 100 UNIT/ML X5UNITS SQ SCH ×2 (07:43→20:31)
[2019-10-27 11:02] LABS: Mycoplasma pneumoniae IgG 2.8 U/L (<=0.09)
[2019-10-27] MEDS: Nystatin POWDER 30 GM BOTTLE TP SCH ×2 (14:48→20:32)
[2019-10-28] MEDS: *HR* Heparin 5,000 UNIT/ML VIAL SQ SCH ×2 (05:21→16:27)
[2019-10-28 06:45] LABS: Basophils % 1.1 %; Hemoglobin 11.1 g/dL (11.5-15.4)
[2019-10-28 06:47] LABS: Basophils # 0.1 K/mcL (0.0-0.2); Eosinophils # 0.4 K/mcL (0.0-0.6); Eosinophils % 4.7 %; Immature Granulocytes % 1.5 % (0-4); Immature Platelets 2.9 % (1.1-6.1); Lymphocytes # 1.1 K/mcL (0.6-4.6); Lymphocytes % 12.5 %; Mean Corpuscular HGB Conc 32.6 g/dL (31.6-35.5); Mean Corpuscular Volume 91.9 fL (83.0-100.0); Mean Platelet Volume 10.4 fL (9.4-12.4); Monocytes # 0.7 K/mcL (0.0-1.3); Monocytes % 8.2 %; Neutrophils # 6.3 K/mcL (1.6-8.9); Red Cell Distribution Width 17.3 % (11.5-14.5); White Blood Count 8.8 K/mcL (4.3-11.1)
[2019-10-28 06:52] LABS: Platelet Count 97 K/mcL (140-400)
[2019-10-28 07:05] LABS: Calcium 8.1 mg/dL (8.6-10.3); Potassium 2.7 mEq/L (3.5-5.1)
[2019-10-28] MEDS: Insulin LISPRO 300 UNITS/3 ML VIAL SQ SCH ×4 (08:12→21:58)
[2019-10-28] MEDS: Insulin DETEMIR 100 UNIT/ML X5UNITS SQ SCH ×2 (08:20→21:58)
[2019-10-28] MEDS: Zinc Sulfate 220 MG CAPSULE PO SCH (08:20)
[2019-10-28] MEDS: Lactulose Oral Soln 20 GM/30 ML UDC PO SCH ×3 (08:20→21:57)
[2019-10-28] MEDS: Nystatin POWDER 30 GM BOTTLE TP SCH ×2 (08:21→21:57)
[2019-10-28] MEDS: Gabapentin 300 MG CAPSULE PO SCH ×4 (08:21→21:55)
[2019-10-28] MEDS: Loratadine 10 MG TABLET PO SCH (08:21)
[2019-10-28] MEDS: Furosemide 40 MG TABLET PO SCH (08:31)
[2019-10-28] MEDS: levoFLOXacin 750 MG/150 ML 750 MG/150 ML BAG IVPB SCH (09:19)
[2019-10-28] MEDS: Ipratropium/Albuterol Neb 3 ML IH PRN (11:04)
[2019-10-28] MEDS ORDERED: Potassium Chloride 40 MEQ, Lidocaine 1% 2 ML in 0.9 % Sodium Chloride 500 ML IVPB ONE (15:43)
[2019-10-28] MEDS: Furosemide 20 MG TABLET PO SCH (15:50)
[2019-10-29 05:18] LABS: Hematocrit 35.7 % (35.3-44.9); Hemoglobin 11.9 g/dL (11.5-15.4); Mean Corpuscular HGB Conc 33.3 g/dL (31.6-35.5); Mean Corpuscular Hemoglobin 30.5 pg (28.0-33.3); Mean Corpuscular Volume 91.5 fL (83.0-100.0); Platelet Count 111 K/mcL (140-400); Red Cell Distribution Width 17.4 % (11.5-14.5)
[2019-10-29 05:23] LABS: White Blood Count 16.4 K/mcL (4.3-11.1)
[2019-10-29 05:29] LABS: Calcium 7.9 mg/dL (8.6-10.3); Potassium 2.9 mEq/L (3.5-5.1)
[2019-10-29] MEDS: Insulin LISPRO 300 UNITS/3 ML VIAL SQ SCH ×4 (07:30→20:36)
[2019-10-29] MEDS: Lactulose Oral Soln 20 GM/30 ML UDC PO SCH ×2 (07:36→20:35)
[2019-10-29] MEDS: Gabapentin 300 MG CAPSULE PO SCH ×4 (07:36→20:35)
[2019-10-29] MEDS: Furosemide 20 MG TABLET PO SCH ×2 (07:36→17:11)
[2019-10-29] MEDS: Loratadine 10 MG TABLET PO SCH (07:36)
[2019-10-29] MEDS: Zinc Sulfate 220 MG CAPSULE PO SCH (07:37)
[2019-10-29] MEDS: Nystatin POWDER 30 GM BOTTLE TP SCH ×2 (07:38→20:37)
[2019-10-29] MEDS: Insulin DETEMIR 100 UNIT/ML X5UNITS SQ SCH ×2 (07:43→20:35)
[2019-10-29] MEDS ORDERED: Potassium Chloride 40 MEQ, Lidocaine 1% 2 ML in 0.9 % Sodium Chloride 500 ML IVPB ONE (09:47)
[2019-10-29 10:32] LABS: Hematocrit 37.1 % (35.3-44.9); Hemoglobin 12.3 g/dL (11.5-15.4)
[2019-10-29 10:48] LABS: Albumin 2.4 g/dL (3.5-5.7); Albumin/Globulin Ratio 0.8 (1.1-2.2); Bilirubin,Direct 0.4 mg/dL (0.0-0.2); Bilirubin,Indirect 0.8 mg/dL (0.0-1.0); Bilirubin,Total 1.2 mg/dL (0.3-1.0); Globulin 3.2 g/dL (2.4-3.5); Total Protein 5.6 g/dL (6.4-8.9)
[2019-10-29 16:06] LABS: Hematocrit 39.7 % (35.3-44.9); Mean Corpuscular HGB Conc 32.7 g/dL (31.6-35.5); Mean Corpuscular Hemoglobin 30.2 pg (28.0-33.3); Mean Corpuscular Volume 92.3 fL (83.0-100.0); Platelet Count 137 K/mcL (140-400); Red Cell Distribution Width 17.5 % (11.5-14.5)
[2019-10-29 17:56] LABS: RBC,Pleural Fluid 0.004 M/mcL
[2019-10-29 18:01] LABS: LDH,Pleural Fluid 45 Units/L (No Ref Range); Total Protein,Pleural Fluid < 3.0 g/dL
[2019-10-29 18:24] LABS: Appearance of Pleural Fl Hazy (Clear)
[2019-10-29] MEDS: Meropenem 1,000 MG in Water for inj. (sterile) 20 ML IVP SCH (20:34)
[2019-10-29 22:59] LABS: Hematocrit 36.3 % (35.3-44.9)
[2019-10-30] MEDS: Meropenem 1,000 MG in Water for inj. (sterile) 20 ML IVP SCH (05:42)
[2019-10-30 05:47] LABS: Red Blood Count 4.04 M/mcL (3.82-4.97)
[2019-10-30 05:49] LABS: Hematocrit 37.4 % (35.3-44.9); Immature Platelets 2.6 % (1.1-6.1); Mean Corpuscular HGB Conc 32.1 g/dL (31.6-35.5); Mean Corpuscular Hemoglobin 29.7 pg (28.0-33.3); Mean Corpuscular Volume 92.6 fL (83.0-100.0); Mean Platelet Volume 10.1 fL (9.4-12.4); Red Cell Distribution Width 17.4 % (11.5-14.5); White Blood Count 12.8 K/mcL (4.3-11.1)
[2019-10-30 06:03] LABS: Calcium 7.8 mg/dL (8.6-10.3); Potassium 3.1 mEq/L (3.5-5.1)
[2019-10-30] MEDS: Insulin LISPRO 300 UNITS/3 ML VIAL SQ SCH ×4 (07:22→22:03)
[2019-10-30] MEDS: Insulin DETEMIR 100 UNIT/ML X5UNITS SQ SCH ×2 (07:32→22:02)
[2019-10-30] MEDS: Lactulose Oral Soln 20 GM/30 ML UDC PO SCH ×2 (07:32→22:02)
[2019-10-30] MEDS: Furosemide 20 MG TABLET PO SCH ×2 (07:33→16:55)
[2019-10-30] MEDS: Gabapentin 300 MG CAPSULE PO SCH ×4 (07:33→22:02)
[2019-10-30] MEDS: Zinc Sulfate 220 MG CAPSULE PO SCH (07:33)
[2019-10-30] MEDS: Loratadine 10 MG TABLET PO SCH (07:33)
[2019-10-30] MEDS: Nystatin POWDER 30 GM BOTTLE TP SCH ×2 (07:35→22:03)
[2019-10-30] MEDS: Cefepime HCl 1,000 MG in Water for inj. (sterile) 10 ML IVP SCH (16:54)
[2019-10-30 21:41] LABS: Bilirubin,Urine Negative (Negative); Blood,Urine Negative (Negative); Clarity,Urine Clear (Clear); Color,Urine Yellow (Yellow); Glucose,Urine (UA) Normal (Normal); Ketones,Urine Negative (Negative); Leukocyte Esterase,Urine Negative (Negative); Nitrite,Urine Negative (Negative); Protein,Urine Trace mg/dL (Neg-Trace); Specific Gravity,Urine 1.022 (1.010-1.025); Urobilinogen,Urine Normal (Normal)
[2019-10-31] MEDS: Cefepime HCl 1,000 MG in Water for inj. (sterile) 10 ML IVP SCH ×3 (00:32→18:34)
[2019-10-31 07:10] LABS: Hematocrit 36.7 % (35.3-44.9); Hemoglobin 12.2 g/dL (11.5-15.4); Mean Corpuscular HGB Conc 33.2 g/dL (31.6-35.5); Mean Corpuscular Hemoglobin 30.3 pg (28.0-33.3); Mean Corpuscular Volume 91.3 fL (83.0-100.0); Mean Platelet Volume 9.7 fL (9.4-12.4); Platelet Count 102 K/mcL (140-400); Red Blood Count 4.02 M/mcL (3.82-4.97); Red Cell Distribution Width 17.3 % (11.5-14.5); White Blood Count 10.1 K/mcL (4.3-11.1)
[2019-10-31] MEDS ORDERED: Zinc Sulfate 220 MG CAPSULE ONE (07:39)
[2019-10-31] MEDS ORDERED: Water for inj. (sterile) 20 ML VIAL IV ONE (07:39)
[2019-10-31] MEDS ORDERED: Furosemide 20 MG TABLET PO ONE (07:39)
[2019-10-31] MEDS ORDERED: Loratadine 10 MG TABLET ONE (07:39)
[2019-10-31] MEDS ORDERED: Lactulose Oral Soln 20 GM/30 ML UDC ONE (07:39)
[2019-10-31] MEDS ORDERED: Gabapentin 300 MG CAPSULE ONE ×2 (07:39)
[2019-10-31 14:15] LABS: Calcium 7.7 mg/dL (8.6-10.3); Potassium 3.3 mEq/L (3.5-5.1)
[2019-10-31] MEDS: Insulin LISPRO 300 UNITS/3 ML VIAL SQ SCH ×4 (17:25→22:02)
[2019-10-31] MEDS: Furosemide 20 MG TABLET PO SCH ×2 (17:25→18:34)
[2019-10-31] MEDS: Loratadine 10 MG TABLET PO SCH (17:26)
[2019-10-31] MEDS: Nystatin POWDER 30 GM BOTTLE TP SCH ×2 (17:27→22:08)
[2019-10-31] MEDS: Gabapentin 300 MG CAPSULE PO SCH ×4 (17:27→22:00)
[2019-10-31] MEDS: Insulin DETEMIR 100 UNIT/ML X5UNITS SQ SCH ×2 (17:27→22:01)
[2019-10-31] MEDS: Lactulose Oral Soln 20 GM/30 ML UDC PO SCH ×2 (17:27→22:01)
[2019-10-31] MEDS: Zinc Sulfate 220 MG CAPSULE PO SCH (17:28)
[2019-11-01] MEDS: Cefepime HCl 1,000 MG in Water for inj. (sterile) 10 ML IVP SCH ×2 (00:44→07:46)
[2019-11-01 07:20] LABS: Red Cell Distribution Width 17.2 % (11.5-14.5)
[2019-11-01 07:22] LABS: Hematocrit 37.9 % (35.3-44.9); Hemoglobin 12.2 g/dL (11.5-15.4); Immature Platelets 1.9 % (1.1-6.1); Mean Corpuscular HGB Conc 32.2 g/dL (31.6-35.5); Mean Corpuscular Hemoglobin 29.8 pg (28.0-33.3); Mean Corpuscular Volume 92.4 fL (83.0-100.0); Mean Platelet Volume 9.9 fL (9.4-12.4); Red Blood Count 4.1 M/mcL (3.82-4.97)
[2019-11-01] MEDS: Insulin LISPRO 300 UNITS/3 ML VIAL SQ SCH ×2 (07:34→12:22)
[2019-11-01 07:39] LABS: BUN/Creatinine Ratio 22 (6-26); Blood Urea Nitrogen 24 mg/dL (6-20); Calcium 7.8 mg/dL (8.6-10.3); Carbon Dioxide 21 mEq/L (23-29); Chloride 111 mEq/L (98-107); Glucose 125 mg/dL (70-105); Osmolality,Calculated 288 (280-300); Potassium 3.2 mEq/L (3.5-5.1); Sodium 136 mEq/L (136-145); eGFR For African Americans > 60 (> 60); eGFR For Non-African Americans 51 (> 60)
[2019-11-01] MEDS: Furosemide 20 MG TABLET PO SCH (07:45)
[2019-11-01] MEDS: Gabapentin 300 MG CAPSULE PO SCH ×2 (07:45→12:20)
[2019-11-01] MEDS: Loratadine 10 MG TABLET PO SCH (07:45)
[2019-11-01] MEDS: Nystatin POWDER 30 GM BOTTLE TP SCH (07:46)
[2019-11-01] MEDS: Lactulose Oral Soln 20 GM/30 ML UDC PO SCH (07:47)
[2019-11-01] MEDS: Zinc Sulfate 220 MG CAPSULE PO SCH (07:47)
[2019-11-01] MEDS: Insulin DETEMIR 100 UNIT/ML X5UNITS SQ SCH (07:59)
[2019-11-01 12:23] VITALS: BP 139/85
[2019-11-01] MEDS ORDERED: Cefdinir 300 MG CAPSULE PO SCH (21:00)
== END 2019-11-01 14:52 | DRG 193 ==
LOC: 2ANU → SUATTDRO 19:27
PROVIDERS: ADMIT Internal Medicine; ATTEND Family Medicine

== ENCOUNTER 2019-12-09 16:52 | Inpatient (IN) ==
[2019-12-09] MEDS ORDERED: Naloxone 0.4 MG/ML INJ IVP PRN (20:32)
[2019-12-09] MEDS ORDERED: Ipratropium/Albuterol Neb 3 ML IH ONE (22:01)
[2019-12-09 22:22] LABS: Basophils # 0.1 K/mcL (0.0-0.2); Basophils % 1.4 %; Eosinophils # 0.8 K/mcL (0.0-0.6); Eosinophils % 8.4 %; Hematocrit 38.1 % (35.3-44.9); Hemoglobin 12.2 g/dL (11.5-15.4); Immature Granulocytes % 0.5 % (0-4); Lymphocytes # 1.2 K/mcL (0.6-4.6); Lymphocytes % 12.4 %; Mean Corpuscular Hemoglobin 29.5 pg (28.0-33.3); Mean Corpuscular Volume 92.3 fL (83.0-100.0); Mean Platelet Volume 9.8 fL (9.4-12.4); Monocytes # 0.7 K/mcL (0.0-1.3); Neutrophils # 6.5 K/mcL (1.6-8.9); Platelet Count 123 K/mcL (140-400); Red Blood Count 4.13 M/mcL (3.82-4.97); Red Cell Distribution Width 14.4 % (11.5-14.5); Segmented Neutrophils % 70.3 %; White Blood Count 9.3 K/mcL (4.3-11.1)
[2019-12-09 22:31] LABS: INR 1.2; Prothrombin Time 14.1 Seconds (9.4-12.1)
[2019-12-09 22:49] LABS: BUN/Creatinine Ratio 13 (6-26); Blood Urea Nitrogen 44 mg/dL (6-20); Carbon Dioxide 23 mEq/L (23-29); Chloride 103 mEq/L (98-107); Glucose 94 mg/dL (70-105); Osmolality,Calculated 293 (280-300); Potassium 4.1 mEq/L (3.5-5.1); Sodium 136 mEq/L (136-145); eGFR For African Americans 17 (> 60); eGFR For Non-African Americans 14 (> 60)
[2019-12-09 22:50] LABS: Alanine Aminotransferase 32 Units/L (7-52); Albumin 2.6 g/dL (3.5-5.7); Alkaline Phosphatase 207 Units/L (34-104); Calcium 8.9 mg/dL (8.6-10.3); Troponin I < 0.03 ng/mL (< 0.04)
[2019-12-09 23:03] LABS: Albumin/Globulin Ratio 0.7 (1.1-2.2); Aspartate Amino Transferase 54 Units/L (13-39); Bilirubin,Total 1.4 mg/dL (0.3-1.0); Magnesium 1.9 mg/dL (1.6-2.6); Total Protein 6.6 g/dL (6.4-8.9)
[2019-12-09] MEDS ORDERED: Furosemide 40 MG/4 ML VIAL IVP ONE (23:24)
[2019-12-10] MEDS ORDERED: *HR* Dextrose 50 % in Water (Syg) 50 ML SYRINGE IVP PRN (01:30)
[2019-12-10] MEDS ORDERED: Dextrose Gel 15 GM/37.5 ML TUBE PO PRN ×2 (01:30)
[2019-12-10] MEDS ORDERED: D5% in Water 1,000 ML IVC PRN (01:30)
[2019-12-10 03:16] LABS: INR 1.3; Prothrombin Time 14.6 Seconds (9.4-12.1)
[2019-12-10 03:35] LABS: Albumin 2.3 g/dL (3.5-5.7); Albumin/Globulin Ratio 0.6 (1.1-2.2); Bilirubin,Total 1.3 mg/dL (0.3-1.0); Calcium 8.5 mg/dL (8.6-10.3); Globulin 3.6 g/dL (2.4-3.5); Magnesium 1.9 mg/dL (1.6-2.6); Potassium 4.8 mEq/L (3.5-5.1); Total Protein 5.9 g/dL (6.4-8.9)
[2019-12-10] MEDS: *HR* Heparin 5,000 UNIT/ML VIAL SQ SCH ×2 (05:06→16:08)
[2019-12-10 06:00] LABS: Mean Corpuscular Volume 91.4 fL (83.0-100.0)
[2019-12-10 06:02] LABS: Basophils # 0.1 K/mcL (0.0-0.2); Basophils % 1.4 %; Eosinophils # 0.9 K/mcL (0.0-0.6); Eosinophils % 8.7 %; Hemoglobin 11.9 g/dL (11.5-15.4); Immature Granulocytes % 0.7 % (0-4); Immature Platelets 4.2 % (1.1-6.1); Lymphocytes # 1.5 K/mcL (0.6-4.6); Mean Corpuscular HGB Conc 32.2 g/dL (31.6-35.5); Mean Corpuscular Hemoglobin 29.4 pg (28.0-33.3); Mean Platelet Volume 12.2 fL (9.4-12.4); Monocytes % 10.1 %; Red Blood Count 4.05 M/mcL (3.82-4.97); Red Cell Distribution Width 14.4 % (11.5-14.5); Segmented Neutrophils % 64.1 %; White Blood Count 9.9 K/mcL (4.3-11.1)
[2019-12-10 06:03] LABS: Neutrophils # 6.4 K/mcL (1.6-8.9); Platelet Count 91 K/mcL (140-400)
[2019-12-10] MEDS: Insulin LISPRO 300 UNITS/3 ML VIAL SQ SCH ×3 (08:05→16:09)
[2019-12-10] MEDS: Lactulose Oral Soln 20 GM/30 ML UDC PO SCH ×2 (08:44→20:56)
[2019-12-10] MEDS: Nystatin POWDER 30 GM BOTTLE TP SCH ×2 (08:44→22:58)
[2019-12-10] MEDS ORDERED: Furosemide 40 MG/4 ML VIAL IVP ONE (11:27)
[2019-12-10 11:53] LABS: Creatinine,Urine 38 mg/dL
[2019-12-10] MEDS ORDERED: Insulin LISPRO 300 UNITS/3 ML VIAL SQ SCH (21:00)
[2019-12-10] MEDS ORDERED: Levalbuterol Neb 1.25 MG/3 ML IH SCH (22:00)
[2019-12-10] MEDS ORDERED: Insulin DETEMIR 100 UNIT/ML X5UNITS SQ ONE (23:18)
[2019-12-11] MEDS ORDERED: Furosemide 20 MG/2 ML VIAL IVP ONE (01:45)
[2019-12-11 02:02] LABS: ABG Base Excess 4 mEq/L (-2 to 3); ABG HCO3 29 mEq/L (21-27); ABG Oxygen Saturation 92 % (95-98); ABG PCO2 47 mmHg (35-45); ABG PH 7.41 pH Units (7.32-7.45); ABG PO2 64 mmHg (85-104); ABG TCO2 31 mEq/L (20-26)
[2019-12-11] MEDS: Levalbuterol Neb 1.25 MG/3 ML IH SCH ×5 (04:16→19:53)
[2019-12-11 05:24] LABS: Hematocrit 35.6 % (35.3-44.9); Hemoglobin 11.4 g/dL (11.5-15.4); Mean Corpuscular Hemoglobin 29.3 pg (28.0-33.3); Mean Corpuscular Volume 91.5 fL (83.0-100.0); Mean Platelet Volume 10.1 fL (9.4-12.4); Platelet Count 111 K/mcL (140-400); Red Blood Count 3.89 M/mcL (3.82-4.97); Red Cell Distribution Width 14.4 % (11.5-14.5); White Blood Count 9.3 K/mcL (4.3-11.1)
[2019-12-11 05:42] LABS: Calcium 8.4 mg/dL (8.6-10.3); Potassium 4.3 mEq/L (3.5-5.1)
[2019-12-11] MEDS: Insulin LISPRO 300 UNITS/3 ML VIAL SQ SCH ×4 (07:49→22:04)
[2019-12-11] MEDS: Lactulose Oral Soln 20 GM/30 ML UDC PO SCH ×2 (07:49→21:56)
[2019-12-11] MEDS: Nystatin POWDER 30 GM BOTTLE TP SCH (07:50)
[2019-12-11 09:27] LABS: Albumin 2.6 g/dL (3.5-5.7)
[2019-12-11] MEDS: Albumin 25% 25gram/100mL 25 GM/100 ML IV.SOLN IVC SCH ×4 (13:27→18:34)
[2019-12-12] MEDS: Nystatin POWDER 30 GM BOTTLE TP SCH ×3 (00:35→20:21)
[2019-12-12] MEDS: Insulin DETEMIR 100 UNIT/ML X5UNITS SQ SCH ×2 (00:36→20:20)
[2019-12-12] MEDS: Levalbuterol Neb 1.25 MG/3 ML IH SCH ×6 (00:46→19:41)
[2019-12-12 02:37] LABS: Hemoglobin 9.5 g/dL (11.5-15.4); Immature Platelets 2.1 % (1.1-6.1); Mean Corpuscular HGB Conc 31.7 g/dL (31.6-35.5); Mean Corpuscular Hemoglobin 29.3 pg (28.0-33.3); Mean Corpuscular Volume 92.6 fL (83.0-100.0); Mean Platelet Volume 10.7 fL (9.4-12.4); Red Blood Count 3.24 M/mcL (3.82-4.97); Red Cell Distribution Width 14.2 % (11.5-14.5); White Blood Count 6.2 K/mcL (4.3-11.1)
[2019-12-12 02:40] LABS: INR 1.4; Prothrombin Time 16.3 Seconds (9.4-12.1)
[2019-12-12 02:54] LABS: Albumin 3.6 g/dL (3.5-5.7); Albumin/Globulin Ratio 1.2 (1.1-2.2); Bilirubin,Total 1.2 mg/dL (0.3-1.0); Calcium 8.9 mg/dL (8.6-10.3); Globulin 2.9 g/dL (2.4-3.5); Potassium 3.9 mEq/L (3.5-5.1); Total Protein 6.5 g/dL (6.4-8.9)
[2019-12-12] MEDS: Lactulose Oral Soln 20 GM/30 ML UDC PO SCH ×5 (08:06→20:22)
[2019-12-12] MEDS: Insulin LISPRO 300 UNITS/3 ML VIAL SQ SCH ×4 (08:07→20:19)
[2019-12-12 09:40] LABS: Hematocrit 32.8 % (35.3-44.9); Hemoglobin 10.4 g/dL (11.5-15.4)
[2019-12-12 17:14] LABS: Hematocrit 32.2 % (35.3-44.9); Hemoglobin 10.3 g/dL (11.5-15.4)
[2019-12-13] MEDS: Levalbuterol Neb 1.25 MG/3 ML IH SCH ×7 (00:27→23:50)
[2019-12-13 01:03] LABS: Basophils # 0.1 K/mcL (0.0-0.2); Eosinophils # 0.5 K/mcL (0.0-0.6); Hematocrit 32.2 % (35.3-44.9); Hemoglobin 10.1 g/dL (11.5-15.4); Immature Granulocytes % 0.6 % (0-4); Immature Platelets 2.4 % (1.1-6.1); Lymphocytes # 0.7 K/mcL (0.6-4.6); Lymphocytes % 9.9 %; Mean Corpuscular HGB Conc 31.4 g/dL (31.6-35.5); Mean Corpuscular Hemoglobin 29.2 pg (28.0-33.3); Mean Corpuscular Volume 93.1 fL (83.0-100.0); Mean Platelet Volume 10.2 fL (9.4-12.4); Monocytes # 0.6 K/mcL (0.0-1.3); Monocytes % 9.3 %; Red Blood Count 3.46 M/mcL (3.82-4.97); Red Cell Distribution Width 14.3 % (11.5-14.5); Segmented Neutrophils % 72.2 %; White Blood Count 6.9 K/mcL (4.3-11.1)
[2019-12-13 01:05] LABS: Platelet Count 71 K/mcL (140-400)
[2019-12-13 01:26] LABS: Albumin 3.2 g/dL (3.5-5.7); Calcium 8.7 mg/dL (8.6-10.3); Potassium 4.1 mEq/L (3.5-5.1)
[2019-12-13 01:48] LABS: Folate 11.6 ng/mL (3.0-16.0)
[2019-12-13] MEDS ORDERED: Insulin DETEMIR 100 UNIT/ML X5UNITS SQ ONE (07:39)
[2019-12-13] MEDS ORDERED: Furosemide 40 MG/4 ML VIAL IVP ONE (09:26)
[2019-12-13] MEDS ORDERED: Albumin 25% 25gram/100mL 25 GM/100 ML IV.SOLN IVPB ONE (09:27)
[2019-12-13] MEDS: Insulin LISPRO 300 UNITS/3 ML VIAL SQ SCH ×4 (09:32→22:00)
[2019-12-13] MEDS: Lactulose Oral Soln 20 GM/30 ML UDC PO SCH ×3 (09:32→21:59)
[2019-12-13] MEDS: Nystatin POWDER 30 GM BOTTLE TP SCH ×2 (09:33→21:59)
[2019-12-13] MEDS: Cefepime HCl 1,000 MG in Water for inj. (sterile) 20 ML IVP SCH (14:55)
[2019-12-13 15:17] LABS: RBC,Pleural Fluid 0.008 M/mcL
[2019-12-13 15:21] LABS: Appearance of Pleural Fl Cloudy (Clear)
[2019-12-13 15:56] LABS: LDH,Pleural Fluid 34 Units/L (No Ref Range); Total Protein,Pleural Fluid < 3.0 g/dL
[2019-12-13 16:13] LABS: Globulin 3.1 g/dL (2.4-3.5); Total Protein 6.3 g/dL (6.4-8.9)
[2019-12-13 17:14] LABS: Basophils,Pleural Fluid 0 %; Eosinophils,Pleural Fluid 0 %
[2019-12-13] MEDS ORDERED: Cefepime HCl 2,000 MG in Water for inj. (sterile) 20 ML IVP SCH (18:00)
[2019-12-13] MEDS: Insulin DETEMIR 100 UNIT/ML X5UNITS SQ SCH (22:05)
[2019-12-14 01:40] LABS: Basophils % 0.9 %; Immature Granulocytes % 0.4 % (0-4)
[2019-12-14 01:42] LABS: Basophils # 0.1 K/mcL (0.0-0.2); Eosinophils # 0.5 K/mcL (0.0-0.6); Eosinophils % 7.1 %; Hematocrit 30.2 % (35.3-44.9); Hemoglobin 9.6 g/dL (11.5-15.4); Immature Platelets 3.3 % (1.1-6.1); Lymphocytes # 0.7 K/mcL (0.6-4.6); Lymphocytes % 8.5 %; Mean Corpuscular HGB Conc 31.8 g/dL (31.6-35.5); Mean Corpuscular Hemoglobin 29.8 pg (28.0-33.3); Mean Corpuscular Volume 93.8 fL (83.0-100.0); Mean Platelet Volume 10.8 fL (9.4-12.4); Monocytes # 0.6 K/mcL (0.0-1.3); Monocytes % 7.7 %; Neutrophils # 5.7 K/mcL (1.6-8.9); Red Blood Count 3.22 M/mcL (3.82-4.97); Red Cell Distribution Width 14.1 % (11.5-14.5); Segmented Neutrophils % 75.4 %; White Blood Count 7.6 K/mcL (4.3-11.1)
[2019-12-14 01:43] LABS: Platelet Count 63 K/mcL (140-400)
[2019-12-14 01:59] LABS: Calcium 8.5 mg/dL (8.6-10.3); Potassium 4.2 mEq/L (3.5-5.1)
[2019-12-14] MEDS: Levalbuterol Neb 1.25 MG/3 ML IH SCH ×6 (04:00→23:41)
[2019-12-14] MEDS: Lactulose Oral Soln 20 GM/30 ML UDC PO SCH ×3 (08:15→21:20)
[2019-12-14] MEDS: Insulin LISPRO 300 UNITS/3 ML VIAL SQ SCH ×4 (08:21→21:15)
[2019-12-14] MEDS: Nystatin POWDER 30 GM BOTTLE TP SCH ×2 (09:19→21:20)
[2019-12-14] MEDS: Insulin DETEMIR 100 UNIT/ML X5UNITS SQ SCH ×2 (09:19→21:16)
[2019-12-14] MEDS ORDERED: Furosemide 40 MG/4 ML VIAL IVP ONE (09:26)
[2019-12-14] MEDS: Cefepime HCl 1,000 MG in Water for inj. (sterile) 20 ML IVP SCH (14:34)
[2019-12-14 14:47] LABS: Bilirubin,Urine Negative (Negative); Blood,Urine Large (Negative); Clarity,Urine Cloudy (Clear); Color,Urine Yellow (Yellow); Glucose,Urine (UA) 250 mg/dL (Normal); Ketones,Urine Negative (Negative); Leukocyte Esterase,Urine Moderate (Negative); Nitrite,Urine Negative (Negative); Protein,Urine 30 mg/dL (Neg-Trace); Specific Gravity,Urine 1.019 (1.010-1.025); Urobilinogen,Urine Normal (Normal)
[2019-12-14 14:49] LABS: Bacteria,Urine None Seen per hpf (None-Few); Hyaline Casts,Urine None Seen per lpf (None-Few); Squamous Epithelial Cell,Urine Many per lpf (None-Few); WBC,Urine 30-50 per hpf (0-3)
[2019-12-14 14:56] LABS: Protein/Creatinine Ratio,Urine 0.73 mg/mg (0.00-0.20)
[2019-12-14 15:06] LABS: Renal Epithelial Cells,Urine Few per hpf (None-Few); Transitional Epi Cells,Urine Few per hpf (None-Few); Yeast,Urine Moderate per hpf (None Seen)
[2019-12-14 15:07] LABS: RBC,Urine 30-50 per hpf (0-3)
[2019-12-15] MEDS: Levalbuterol Neb 1.25 MG/3 ML IH SCH ×6 (04:01→23:38)
[2019-12-15 04:19] LABS: Calcium 8.5 mg/dL (8.6-10.3); Potassium 4.6 mEq/L (3.5-5.1)
[2019-12-15 06:45] LABS: Hematocrit 32.6 % (35.3-44.9); Hemoglobin 10.2 g/dL (11.5-15.4); Immature Platelets 4.1 % (1.1-6.1); Mean Corpuscular HGB Conc 31.3 g/dL (31.6-35.5); Mean Corpuscular Hemoglobin 29.6 pg (28.0-33.3); Mean Corpuscular Volume 94.5 fL (83.0-100.0); Mean Platelet Volume 11.6 fL (9.4-12.4); Red Blood Count 3.45 M/mcL (3.82-4.97); Red Cell Distribution Width 14.8 % (11.5-14.5); White Blood Count 7.7 K/mcL (4.3-11.1)
[2019-12-15] MEDS: Insulin DETEMIR 100 UNIT/ML X5UNITS SQ SCH ×2 (07:55→20:47)
[2019-12-15] MEDS: Insulin LISPRO 300 UNITS/3 ML VIAL SQ SCH ×4 (07:57→20:47)
[2019-12-15] MEDS: Lactulose Oral Soln 20 GM/30 ML UDC PO SCH ×3 (08:01→20:43)
[2019-12-15] MEDS ORDERED: Albumin 25% 25gram/100mL 25 GM/100 ML IV.SOLN IVPB ONE (11:31)
[2019-12-15] MEDS ORDERED: Furosemide 40 MG/4 ML VIAL IVP ONE (11:31)
[2019-12-15] MEDS: Nystatin POWDER 30 GM BOTTLE TP SCH ×2 (12:06→20:47)
[2019-12-15] MEDS: Cefepime HCl 1,000 MG in Water for inj. (sterile) 20 ML IVP SCH (15:17)
[2019-12-16 02:30] LABS: Hemoglobin 9.9 g/dL (11.5-15.4)
[2019-12-16 02:31] LABS: Hematocrit 32.7 % (35.3-44.9); Mean Corpuscular HGB Conc 30.3 g/dL (31.6-35.5); Mean Corpuscular Hemoglobin 28.9 pg (28.0-33.3); Mean Corpuscular Volume 95.6 fL (83.0-100.0); Red Blood Count 3.42 M/mcL (3.82-4.97); Red Cell Distribution Width 15.2 % (11.5-14.5); White Blood Count 7.9 K/mcL (4.3-11.1)
[2019-12-16 02:51] LABS: Calcium 8.5 mg/dL (8.6-10.3); Potassium 4.3 mEq/L (3.5-5.1)
[2019-12-16] MEDS: Levalbuterol Neb 1.25 MG/3 ML IH SCH ×6 (03:47→23:42)
[2019-12-16] MEDS ORDERED: *HR* OxyCODONE Immed Rel 5 MG TABLET PO PRN (04:51)
[2019-12-16] MEDS ORDERED: Albumin 25% 25gram/100mL 25 GM/100 ML IV.SOLN IVPB ONE (09:05)
[2019-12-16] MEDS ORDERED: Furosemide 40 MG/4 ML VIAL IVP ONE (09:05)
[2019-12-16] MEDS: Insulin LISPRO 300 UNITS/3 ML VIAL SQ SCH ×4 (09:29→21:11)
[2019-12-16] MEDS: Lactulose Oral Soln 20 GM/30 ML UDC PO SCH ×2 (09:31→21:11)
[2019-12-16] MEDS: Nystatin POWDER 30 GM BOTTLE TP SCH ×2 (09:32→21:11)
[2019-12-16] MEDS: Insulin DETEMIR 100 UNIT/ML X5UNITS SQ SCH ×2 (09:33→21:11)
[2019-12-16] MEDS: Cefepime HCl 1,000 MG in Water for inj. (sterile) 20 ML IVP SCH (13:45)
[2019-12-17] MEDS ORDERED: Acetaminophen 325 MG TABLET PO PRN (00:55)
[2019-12-17 03:12] LABS: Calcium 8.5 mg/dL (8.6-10.3)
[2019-12-17] MEDS: Levalbuterol Neb 1.25 MG/3 ML IH SCH ×6 (03:40→23:44)
[2019-12-17 04:05] LABS: Hematocrit 33.3 % (35.3-44.9); Hemoglobin 10.2 g/dL (11.5-15.4); Immature Platelets 4.6 % (1.1-6.1); Mean Corpuscular HGB Conc 30.6 g/dL (31.6-35.5); Mean Corpuscular Hemoglobin 29.2 pg (28.0-33.3); Mean Corpuscular Volume 95.4 fL (83.0-100.0); Mean Platelet Volume 11.4 fL (9.4-12.4); Red Blood Count 3.49 M/mcL (3.82-4.97); Red Cell Distribution Width 15.2 % (11.5-14.5); White Blood Count 9.5 K/mcL (4.3-11.1)
[2019-12-17] MEDS: Insulin LISPRO 300 UNITS/3 ML VIAL SQ SCH ×4 (08:48→20:22)
[2019-12-17] MEDS: Nystatin POWDER 30 GM BOTTLE TP SCH ×2 (08:49→20:24)
[2019-12-17] MEDS: Insulin DETEMIR 100 UNIT/ML X5UNITS SQ SCH ×2 (08:49→20:17)
[2019-12-17] MEDS: Lactulose Oral Soln 20 GM/30 ML UDC PO SCH ×2 (08:55→20:24)
[2019-12-17] MEDS ORDERED: Albumin 25% 25gram/100mL 25 GM/100 ML IV.SOLN IVPB ONE (11:20)
[2019-12-17] MEDS: Cefepime HCl 1,000 MG in Water for inj. (sterile) 20 ML IVP SCH (15:04)
[2019-12-18] MEDS: Levalbuterol Neb 1.25 MG/3 ML IH SCH ×5 (03:40→19:48)
[2019-12-18 04:21] LABS: Hematocrit 32.7 % (35.3-44.9); Hemoglobin 10.1 g/dL (11.5-15.4); Mean Corpuscular HGB Conc 30.9 g/dL (31.6-35.5); Mean Corpuscular Hemoglobin 29.5 pg (28.0-33.3); Mean Corpuscular Volume 95.6 fL (83.0-100.0); Mean Platelet Volume 11.5 fL (9.4-12.4); Red Blood Count 3.42 M/mcL (3.82-4.97); Red Cell Distribution Width 15.3 % (11.5-14.5); White Blood Count 7.6 K/mcL (4.3-11.1)
[2019-12-18 04:27] LABS: Calcium 8.4 mg/dL (8.6-10.3)
[2019-12-18 04:42] LABS: Platelet Count 61 K/mcL (140-400)
[2019-12-18] MEDS: Nystatin POWDER 30 GM BOTTLE TP SCH ×2 (08:34→20:37)
[2019-12-18] MEDS: Lactulose Oral Soln 20 GM/30 ML UDC PO SCH ×2 (08:35→20:37)
[2019-12-18] MEDS: Insulin LISPRO 300 UNITS/3 ML VIAL SQ SCH ×4 (08:35→20:36)
[2019-12-18] MEDS: Insulin DETEMIR 100 UNIT/ML X5UNITS SQ SCH ×2 (08:35→20:36)
[2019-12-18] MEDS ORDERED: 0.9 % Sodium Chloride 250 ML IVC PRN (11:08)
[2019-12-18] MEDS ORDERED: 0.9 % Sodium Chloride 1,000 ML PRIME SCH (11:15)
[2019-12-18] MEDS ORDERED: *HR* Heparin 5,000 UNIT/ML VIAL ONE (11:42)
[2019-12-18 13:13] LABS: Hepatitis B Surface Antibody < 3.10 mIU/mL
[2019-12-18 13:25] LABS: Hepatitis B Surface Antigen Nonreactive (Nonreactive)
[2019-12-18] MEDS ORDERED: *HR* Heparin 10,000 UNIT/10 ML VIAL ONE (15:44)
[2019-12-19] MEDS: Levalbuterol Neb 1.25 MG/3 ML IH SCH ×6 (00:21→20:19)
[2019-12-19 04:17] LABS: Hematocrit 30.1 % (35.3-44.9); Hemoglobin 9.3 g/dL (11.5-15.4); Immature Platelets 4.2 % (1.1-6.1); Mean Corpuscular HGB Conc 30.9 g/dL (31.6-35.5); Mean Corpuscular Hemoglobin 29.7 pg (28.0-33.3); Mean Corpuscular Volume 96.2 fL (83.0-100.0); Mean Platelet Volume 10.3 fL (9.4-12.4); Red Blood Count 3.13 M/mcL (3.82-4.97); Red Cell Distribution Width 15.4 % (11.5-14.5); White Blood Count 6.7 K/mcL (4.3-11.1)
[2019-12-19 04:34] LABS: Calcium 8.2 mg/dL (8.6-10.3); Potassium 3.9 mEq/L (3.5-5.1)
[2019-12-19] MEDS ORDERED: Albumin 25% 25gram/100mL 25 GM/100 ML IV.SOLN IVPB PRN (06:31)
[2019-12-19] MEDS ORDERED: 0.9 % Sodium Chloride 250 ML IVC PRN (06:31)
[2019-12-19] MEDS: Insulin LISPRO 300 UNITS/3 ML VIAL SQ SCH ×4 (07:35→20:45)
[2019-12-19] MEDS: Lactulose Oral Soln 20 GM/30 ML UDC PO SCH ×2 (07:59→20:43)
[2019-12-19] MEDS: Insulin DETEMIR 100 UNIT/ML X5UNITS SQ SCH ×2 (08:03→20:43)
[2019-12-19] MEDS: Nystatin POWDER 30 GM BOTTLE TP SCH ×2 (08:03→20:46)
[2019-12-20] MEDS: Levalbuterol Neb 1.25 MG/3 ML IH SCH ×7 (00:05→23:56)
[2019-12-20] MEDS: Insulin LISPRO 300 UNITS/3 ML VIAL SQ SCH ×4 (08:26→20:45)
[2019-12-20] MEDS: Nystatin POWDER 30 GM BOTTLE TP SCH ×2 (09:24→20:47)
[2019-12-20] MEDS: Insulin DETEMIR 100 UNIT/ML X5UNITS SQ SCH ×2 (09:25→20:44)
[2019-12-20] MEDS: Lactulose Oral Soln 20 GM/30 ML UDC PO SCH ×2 (09:25→20:46)
[2019-12-21] MEDS: Levalbuterol Neb 1.25 MG/3 ML IH SCH ×6 (04:06→23:52)
[2019-12-21 05:00] LABS: Hemoglobin 8.7 g/dL (11.5-15.4)
[2019-12-21 05:01] LABS: Hematocrit 28.6 % (35.3-44.9); Immature Platelets 5.6 % (1.1-6.1); Mean Corpuscular HGB Conc 30.4 g/dL (31.6-35.5); Mean Corpuscular Hemoglobin 29.3 pg (28.0-33.3); Mean Corpuscular Volume 96.3 fL (83.0-100.0); Mean Platelet Volume 11.2 fL (9.4-12.4); Red Blood Count 2.97 M/mcL (3.82-4.97); Red Cell Distribution Width 15.5 % (11.5-14.5); White Blood Count 5.6 K/mcL (4.3-11.1)
[2019-12-21 05:14] LABS: Calcium 8.1 mg/dL (8.6-10.3); Potassium 3.6 mEq/L (3.5-5.1)
[2019-12-21] MEDS: Lactulose Oral Soln 20 GM/30 ML UDC PO SCH ×2 (09:00→21:34)
[2019-12-21] MEDS: Insulin LISPRO 300 UNITS/3 ML VIAL SQ SCH ×4 (09:00→21:34)
[2019-12-21] MEDS: Insulin DETEMIR 100 UNIT/ML X5UNITS SQ SCH ×2 (09:00→21:07)
[2019-12-21] MEDS: Nystatin POWDER 30 GM BOTTLE TP SCH ×2 (09:00→21:35)
[2019-12-22] MEDS: Levalbuterol Neb 1.25 MG/3 ML IH SCH ×5 (03:33→19:50)
[2019-12-22 03:54] LABS: Hemoglobin 9.1 g/dL (11.5-15.4)
[2019-12-22 03:56] LABS: Hematocrit 29.7 % (35.3-44.9); Immature Platelets 6.2 % (1.1-6.1); Mean Corpuscular HGB Conc 30.6 g/dL (31.6-35.5); Mean Corpuscular Hemoglobin 28.9 pg (28.0-33.3); Mean Corpuscular Volume 94.3 fL (83.0-100.0); Mean Platelet Volume 11.9 fL (9.4-12.4); Red Blood Count 3.15 M/mcL (3.82-4.97); Red Cell Distribution Width 15.6 % (11.5-14.5)
[2019-12-22 04:17] LABS: Calcium 8.3 mg/dL (8.6-10.3); Potassium 3.5 mEq/L (3.5-5.1)
[2019-12-22] MEDS ORDERED: Ondansetron 4 MG/2 ML VIAL IVP PRN (08:53)
[2019-12-22] MEDS: Insulin LISPRO 300 UNITS/3 ML VIAL SQ SCH ×4 (08:54→22:12)
[2019-12-22] MEDS: Nystatin POWDER 30 GM BOTTLE TP SCH ×2 (08:55→22:19)
[2019-12-22] MEDS: Lactulose Oral Soln 20 GM/30 ML UDC PO SCH ×2 (08:57→22:19)
[2019-12-22] MEDS: Insulin DETEMIR 100 UNIT/ML X5UNITS SQ SCH (08:58)
[2019-12-22] MEDS ORDERED: Furosemide 20 MG/2 ML VIAL IVP SCH (11:00)
[2019-12-22] MEDS: Furosemide 20 MG TABLET PO SCH ×2 (12:40→15:46)
[2019-12-23] MEDS: Levalbuterol Neb 1.25 MG/3 ML IH SCH ×7 (00:09→22:51)
[2019-12-23] MEDS: Insulin DETEMIR 100 UNIT/ML X5UNITS SQ SCH ×3 (03:44→20:02)
[2019-12-23 04:53] LABS: Calcium 8.1 mg/dL (8.6-10.3); Potassium 3.7 mEq/L (3.5-5.1)
[2019-12-23] MEDS: Lactulose Oral Soln 20 GM/30 ML UDC PO SCH ×2 (08:18→19:47)
[2019-12-23] MEDS: Insulin LISPRO 300 UNITS/3 ML VIAL SQ SCH ×4 (08:18→21:42)
[2019-12-23] MEDS: Furosemide 20 MG TABLET PO SCH ×2 (08:18→19:57)
[2019-12-23] MEDS: Nystatin POWDER 30 GM BOTTLE TP SCH ×2 (08:19→20:05)
[2019-12-23 13:15] LABS: INR 1.4; Prothrombin Time 15.4 Seconds (9.4-12.1)
[2019-12-23 14:17] LABS: Albumin 2.8 g/dL (3.5-5.7); Bilirubin,Direct 0.3 mg/dL (0.0-0.2); Bilirubin,Indirect 0.7 mg/dL (0.0-1.0); Globulin 2.7 g/dL (2.4-3.5); Total Protein 5.5 g/dL (6.4-8.9)
[2019-12-23 16:24] LABS: Amylase,Pleural Fluid < 10 Units/L (No Ref Range); Glucose,Pleural Fluid 155 mg/dL (No Ref Range); LDH,Pleural Fluid 28 Units/L (No Ref Range); Total Protein,Pleural Fluid < 3.0 g/dL
[2019-12-23 16:53] LABS: Appearance of Pleural Fl Hazy (Clear)
[2019-12-23 17:05] LABS: RBC,Pleural Fluid 0.008 M/mcL
[2019-12-23 17:46] LABS: Basophils,Pleural Fluid 0 %; Eosinophils,Pleural Fluid 0 %; Monocytes,Pleural Fluid 0 %
[2019-12-24] MEDS: Levalbuterol Neb 1.25 MG/3 ML IH SCH ×2 (03:36→07:26)
[2019-12-24 04:07] LABS: Potassium 3.8 mEq/L (3.5-5.1)
[2019-12-24 07:46] VITALS: BP 111/69
[2019-12-24] MEDS: Furosemide 20 MG TABLET PO SCH (09:18)
[2019-12-24] MEDS: Insulin LISPRO 300 UNITS/3 ML VIAL SQ SCH (09:18)
[2019-12-24] MEDS: Lactulose Oral Soln 20 GM/30 ML UDC PO SCH (09:18)
[2019-12-24] MEDS: Nystatin POWDER 30 GM BOTTLE TP SCH (09:19)
[2019-12-24] MEDS: Insulin DETEMIR 100 UNIT/ML X5UNITS SQ SCH (09:20)
== END 2019-12-24 10:45 | disposition home or self-care (01) | DRG 441 ==
LOC: 3BNU → SUATTDRO 12-10 13:46 → 2ANU 12-10 15:58
PROVIDERS: ADMIT Internal Medicine; ATTEND Internal Medicine

== ENCOUNTER 2020-01-01 18:23 | Inpatient (IN) ==
[2020-01-02] MEDS ORDERED: Naloxone 0.4 MG/ML INJ IVP PRN (01:16)
[2020-01-02 03:14] LABS: Hemoglobin 8.7 g/dL (11.5-15.4); Immature Granulocytes % 0.6 % (0-4); Mean Platelet Volume 10.8 fL (9.4-12.4); Monocytes % 7.2 %
[2020-01-02 03:15] LABS: Basophils % 0.6 %; Eosinophils # 0.3 K/mcL (0.0-0.6); Eosinophils % 6.6 %; Hematocrit 27.5 % (35.3-44.9); Immature Platelets 2.7 % (1.1-6.1); Lymphocytes # 0.8 K/mcL (0.6-4.6); Lymphocytes % 15.3 %; Mean Corpuscular HGB Conc 31.6 g/dL (31.6-35.5); Mean Corpuscular Hemoglobin 28.9 pg (28.0-33.3); Mean Corpuscular Volume 91.4 fL (83.0-100.0); Monocytes # 0.4 K/mcL (0.0-1.3); Neutrophils # 3.5 K/mcL (1.6-8.9); Red Blood Count 3.01 M/mcL (3.82-4.97); Red Cell Distribution Width 16.1 % (11.5-14.5); Segmented Neutrophils % 69.7 %
[2020-01-02 03:35] LABS: Platelet Count 58 K/mcL (140-400)
[2020-01-02 03:38] LABS: Albumin 2.7 g/dL (3.5-5.7); Bilirubin,Total 1.8 mg/dL (0.3-1.0); Calcium 8.1 mg/dL (8.6-10.3); Globulin 2.7 g/dL (2.4-3.5); Magnesium 1.7 mg/dL (1.6-2.6); Phosphorous 2.7 mg/dL (2.7-4.5); Potassium 3.2 mEq/L (3.5-5.1); Total Protein 5.4 g/dL (6.4-8.9)
[2020-01-02] MEDS ORDERED: Dextrose Gel 15 GM/37.5 ML TUBE PO PRN ×2 (04:17)
[2020-01-02] MEDS ORDERED: *HR* Dextrose 50 % in Water (Syg) 50 ML SYRINGE IVP PRN (04:17)
[2020-01-02] MEDS ORDERED: D5% in Water 1,000 ML IVC PRN (04:17)
[2020-01-02] MEDS ORDERED: tiZANidine 4 MG TABLET PO PRN (04:23)
[2020-01-02] MEDS: *HR* Heparin 5,000 UNIT/ML VIAL SQ SCH ×3 (05:55→22:48)
[2020-01-02] MEDS: Insulin LISPRO 300 UNITS/3 ML VIAL SQ SCH ×4 (09:40→22:44)
[2020-01-02] MEDS: Lactulose Oral Soln 20 GM/30 ML UDC PO SCH ×2 (09:41→22:50)
[2020-01-02] MEDS: Ascorbic Acid 500 MG TABLET PO SCH (09:41)
[2020-01-02] MEDS: Aspirin Enteric Coated 81 MG Tablet PO SCH (09:41)
[2020-01-02] MEDS: Loratadine 10 MG TABLET PO SCH (09:41)
[2020-01-02] MEDS: Furosemide Oral Soln 40 MG/4 ML UDC PO SCH (19:16)
[2020-01-02] MEDS: Insulin DETEMIR 100 UNIT/ML X5UNITS SQ SCH (22:45)
[2020-01-02] MEDS: Gabapentin 300 MG CAPSULE PO SCH (22:48)
[2020-01-02] MEDS: Melatonin 3 MG TABLET PO SCH (22:49)
[2020-01-03] MEDS ORDERED: *HR* Promethazine 25 MG/ML VIAL IVP ONE (00:36)
[2020-01-03] MEDS: *HR* Heparin 5,000 UNIT/ML VIAL SQ SCH ×3 (06:22→23:17)
[2020-01-03] MEDS: Gabapentin 300 MG CAPSULE PO SCH ×2 (08:00→23:15)
[2020-01-03] MEDS: Zinc Sulfate 220 MG CAPSULE PO SCH (08:00)
[2020-01-03] MEDS: Aspirin Enteric Coated 81 MG Tablet PO SCH (08:00)
[2020-01-03] MEDS: Ascorbic Acid 500 MG TABLET PO SCH (08:00)
[2020-01-03] MEDS: Lactulose Oral Soln 20 GM/30 ML UDC PO SCH ×2 (08:00→23:16)
[2020-01-03] MEDS: Insulin LISPRO 300 UNITS/3 ML VIAL SQ SCH ×4 (08:01→23:16)
[2020-01-03] MEDS: Furosemide Oral Soln 40 MG/4 ML UDC PO SCH ×2 (08:01→17:59)
[2020-01-03] MEDS: Loratadine 10 MG TABLET PO SCH (08:07)
[2020-01-03 11:21] LABS: Calcium 8.2 mg/dL (8.6-10.3); Potassium 2.9 mEq/L (3.5-5.1)
[2020-01-03 11:50] LABS: Magnesium 1.9 mg/dL (1.6-2.6)
[2020-01-03] MEDS: Ondansetron 4 MG/2 ML VIAL IVP PRN (12:16)
[2020-01-03 14:41] LABS: Bilirubin,Urine Negative (Negative); Blood,Urine Negative (Negative); Clarity,Urine Cloudy (Clear); Color,Urine Yellow (Yellow); Glucose,Urine (UA) Normal (Normal); Ketones,Urine Negative (Negative); Leukocyte Esterase,Urine Small (Negative); Nitrite,Urine Negative (Negative); Protein,Urine Trace mg/dL (Neg-Trace); Specific Gravity,Urine 1.015 (1.010-1.025); Urobilinogen,Urine Normal (Normal)
[2020-01-03 14:44] LABS: Bacteria,Urine Few per hpf (None-Few); Hyaline Casts,Urine None Seen per lpf (None-Few); RBC,Urine 0-3 per hpf (0-3); Squamous Epithelial Cell,Urine Many per lpf (None-Few)
[2020-01-03 15:10] LABS: Yeast,Urine Few per hpf (None Seen)
[2020-01-03] MEDS: Insulin DETEMIR 100 UNIT/ML X5UNITS SQ SCH (23:16)
[2020-01-03] MEDS: Melatonin 3 MG TABLET PO SCH (23:17)
[2020-01-04 01:11] LABS: Basophils # 0.1 K/mcL (0.0-0.2); Basophils % 1.2 %; Eosinophils # 0.5 K/mcL (0.0-0.6); Eosinophils % 6.9 %; Hematocrit 29.6 % (35.3-44.9); Hemoglobin 8.9 g/dL (11.5-15.4); Immature Granulocytes % 0.5 % (0-4); Lymphocytes # 1.1 K/mcL (0.6-4.6); Lymphocytes % 16.7 %; Mean Corpuscular HGB Conc 30.1 g/dL (31.6-35.5); Mean Corpuscular Hemoglobin 29.7 pg (28.0-33.3); Mean Corpuscular Volume 98.7 fL (83.0-100.0); Mean Platelet Volume 11.9 fL (9.4-12.4); Monocytes # 0.5 K/mcL (0.0-1.3); Monocytes % 7.5 %; Neutrophils # 4.5 K/mcL (1.6-8.9); Segmented Neutrophils % 67.2 %; White Blood Count 6.7 K/mcL (4.3-11.1)
[2020-01-04 01:13] LABS: Platelet Count 66 K/mcL (140-400)
[2020-01-04 01:25] LABS: Calcium 8.3 mg/dL (8.6-10.3); Potassium 3.4 mEq/L (3.5-5.1)
[2020-01-04] MEDS: *HR* Heparin 5,000 UNIT/ML VIAL SQ SCH ×3 (06:16→21:07)
[2020-01-04] MEDS: Zinc Sulfate 220 MG CAPSULE PO SCH (08:29)
[2020-01-04] MEDS: Ascorbic Acid 500 MG TABLET PO SCH (08:30)
[2020-01-04] MEDS: Aspirin Enteric Coated 81 MG Tablet PO SCH (08:30)
[2020-01-04] MEDS: Lactulose Oral Soln 20 GM/30 ML UDC PO SCH ×2 (08:30→21:07)
[2020-01-04] MEDS: Furosemide Oral Soln 40 MG/4 ML UDC PO SCH (08:30)
[2020-01-04] MEDS: Loratadine 10 MG TABLET PO SCH (08:30)
[2020-01-04] MEDS: Gabapentin 300 MG CAPSULE PO SCH ×2 (08:30→21:08)
[2020-01-04] MEDS: Insulin LISPRO 300 UNITS/3 ML VIAL SQ SCH ×4 (08:31→21:10)
[2020-01-04] MEDS: Melatonin 3 MG TABLET PO SCH (21:09)
[2020-01-04] MEDS: Insulin DETEMIR 100 UNIT/ML X5UNITS SQ SCH (21:09)
[2020-01-05 04:56] LABS: Basophils % 0.6 %; Mean Corpuscular Volume 95.1 fL (83.0-100.0); Red Cell Distribution Width 17.1 % (11.5-14.5)
[2020-01-05 04:58] LABS: Eosinophils # 0.4 K/mcL (0.0-0.6); Eosinophils % 6.7 %; Hematocrit 29.4 % (35.3-44.9); Immature Granulocytes % 0.6 % (0-4); Immature Platelets 3.3 % (1.1-6.1); Lymphocytes # 1.1 K/mcL (0.6-4.6); Lymphocytes % 17.2 %; Mean Corpuscular HGB Conc 30.6 g/dL (31.6-35.5); Mean Corpuscular Hemoglobin 29.1 pg (28.0-33.3); Monocytes # 0.6 K/mcL (0.0-1.3); Monocytes % 8.9 %; Neutrophils # 4.2 K/mcL (1.6-8.9); Red Blood Count 3.09 M/mcL (3.82-4.97); White Blood Count 6.3 K/mcL (4.3-11.1)
[2020-01-05 05:07] LABS: Calcium 8.2 mg/dL (8.6-10.3); Potassium 3.6 mEq/L (3.5-5.1)
[2020-01-05 05:16] LABS: Platelet Count 57 K/mcL (140-400)
[2020-01-05 05:17] LABS: Anisocytosis 1+ (Not Present); Large Platelets Present (Not Present); Platelet Estimate Decreased (Normal)
[2020-01-05] MEDS: *HR* Heparin 5,000 UNIT/ML VIAL SQ SCH ×3 (05:45→21:32)
[2020-01-05] MEDS: Loratadine 10 MG TABLET PO SCH (08:42)
[2020-01-05] MEDS: Gabapentin 300 MG CAPSULE PO SCH ×2 (08:42→21:32)
[2020-01-05] MEDS: Ascorbic Acid 500 MG TABLET PO SCH (08:42)
[2020-01-05] MEDS: Aspirin Enteric Coated 81 MG Tablet PO SCH (08:42)
[2020-01-05] MEDS: Zinc Sulfate 220 MG CAPSULE PO SCH (08:43)
[2020-01-05] MEDS: Lactulose Oral Soln 20 GM/30 ML UDC PO SCH ×2 (08:43→21:29)
[2020-01-05] MEDS: Insulin LISPRO 300 UNITS/3 ML VIAL SQ SCH ×4 (08:43→21:31)
[2020-01-05] MEDS ORDERED: Furosemide 40 MG/4 ML VIAL IVP SCH (10:45)
[2020-01-05] MEDS: Spironolactone 25 MG TABLET PO SCH (11:39)
[2020-01-05 12:13] LABS: ABG Base Excess -4 mEq/L (-2 to 3); ABG HCO3 24 mEq/L (21-27); ABG Oxygen Saturation 96 % (95-98); ABG PCO2 58 mmHg (35-45); ABG PH 7.22 pH Units (7.32-7.45); ABG PO2 102 mmHg (85-104); ABG TCO2 26 mEq/L (20-26)
[2020-01-05 15:14] LABS: Thyroid Stimulating Hormone 4.003 mcIU/mL (0.340-5.600)
[2020-01-05] MEDS: Insulin DETEMIR 100 UNIT/ML X5UNITS SQ SCH (21:30)
[2020-01-05] MEDS: Melatonin 3 MG TABLET PO SCH (21:30)
[2020-01-06 03:32] LABS: Basophils % 0.8 %; Hematocrit 29.4 % (35.3-44.9); Mean Platelet Volume 10.4 fL (9.4-12.4)
[2020-01-06 03:33] LABS: Basophils # 0.1 K/mcL (0.0-0.2); Eosinophils # 0.4 K/mcL (0.0-0.6); Eosinophils % 6.5 %; Hemoglobin 8.9 g/dL (11.5-15.4); Immature Granulocytes % 0.7 % (0-4); Lymphocytes % 16.6 %; Mean Corpuscular HGB Conc 30.3 g/dL (31.6-35.5); Mean Corpuscular Hemoglobin 28.9 pg (28.0-33.3); Mean Corpuscular Volume 95.5 fL (83.0-100.0); Monocytes # 0.4 K/mcL (0.0-1.3); Monocytes % 6.3 %; Neutrophils # 4.1 K/mcL (1.6-8.9); Red Blood Count 3.08 M/mcL (3.82-4.97); Red Cell Distribution Width 17.2 % (11.5-14.5); Segmented Neutrophils % 69.1 %; White Blood Count 5.9 K/mcL (4.3-11.1)
[2020-01-06 03:35] LABS: Platelet Count 64 K/mcL (140-400)
[2020-01-06 03:50] LABS: Calcium 8.4 mg/dL (8.6-10.3); Potassium 3.6 mEq/L (3.5-5.1)
[2020-01-06] MEDS: *HR* Heparin 5,000 UNIT/ML VIAL SQ SCH ×3 (05:54→20:27)
[2020-01-06] MEDS: Furosemide 40 MG TABLET PO SCH ×2 (07:21→17:37)
[2020-01-06] MEDS: Insulin LISPRO 300 UNITS/3 ML VIAL SQ SCH ×4 (07:40→20:41)
[2020-01-06] MEDS: Zinc Sulfate 220 MG CAPSULE PO SCH (08:26)
[2020-01-06] MEDS: Loratadine 10 MG TABLET PO SCH (08:26)
[2020-01-06] MEDS: Aspirin Enteric Coated 81 MG Tablet PO SCH (08:27)
[2020-01-06] MEDS: Spironolactone 25 MG TABLET PO SCH (08:27)
[2020-01-06] MEDS: Lactulose Oral Soln 20 GM/30 ML UDC PO SCH ×3 (08:27→20:27)
[2020-01-06] MEDS: Gabapentin 300 MG CAPSULE PO SCH ×2 (08:27→20:26)
[2020-01-06] MEDS: Ascorbic Acid 500 MG TABLET PO SCH (08:27)
[2020-01-06] MEDS: Melatonin 3 MG TABLET PO SCH (20:26)
[2020-01-06] MEDS: Insulin DETEMIR 100 UNIT/ML X5UNITS SQ SCH (20:42)
[2020-01-07 05:37] LABS: Calcium 8.4 mg/dL (8.6-10.3); Potassium 3.6 mEq/L (3.5-5.1)
[2020-01-07] MEDS: *HR* Heparin 5,000 UNIT/ML VIAL SQ SCH ×3 (05:40→20:34)
[2020-01-07] MEDS: Insulin LISPRO 300 UNITS/3 ML VIAL SQ SCH ×4 (07:36→21:59)
[2020-01-07] MEDS: Spironolactone 25 MG TABLET PO SCH (07:38)
[2020-01-07] MEDS: Loratadine 10 MG TABLET PO SCH (07:39)
[2020-01-07] MEDS: Lactulose Oral Soln 20 GM/30 ML UDC PO SCH ×3 (07:39→20:20)
[2020-01-07] MEDS: Gabapentin 300 MG CAPSULE PO SCH ×2 (07:39→20:21)
[2020-01-07] MEDS: Zinc Sulfate 220 MG CAPSULE PO SCH (07:39)
[2020-01-07] MEDS: Aspirin Enteric Coated 81 MG Tablet PO SCH (07:39)
[2020-01-07] MEDS: Ascorbic Acid 500 MG TABLET PO SCH (07:44)
[2020-01-07] MEDS: Furosemide 40 MG TABLET PO SCH (10:13)
[2020-01-07] MEDS: Albumin 25% 25gram/100mL 25 GM/100 ML IV.SOLN IVPB SCH ×2 (11:25→20:21)
[2020-01-07 16:23] LABS: ABG Base Excess -4 mEq/L (-2 to 3); ABG HCO3 25 mEq/L (21-27); ABG Oxygen Saturation 97 % (95-98); ABG PCO2 73 mmHg (35-45); ABG PH 7.15 pH Units (7.32-7.45); ABG PO2 119 mmHg (85-104); ABG TCO2 28 mEq/L (20-26)
[2020-01-07 16:23] LABS: Albumin 3.3 g/dL (3.5-5.7); Albumin/Globulin Ratio 1.2 (1.1-2.2); Calcium 8.5 mg/dL (8.6-10.3); Globulin 2.8 g/dL (2.4-3.5); Potassium 3.8 mEq/L (3.5-5.1); Total Protein 6.1 g/dL (6.4-8.9)
[2020-01-07] MEDS ORDERED: Lactulose 200 GM, Sodium Chloride IRRigation 700 ML RC ONE (16:26)
[2020-01-07 16:48] LABS: INR 1.4; Prothrombin Time 16.2 Seconds (9.4-12.1)
[2020-01-07 18:14] LABS: ABG Base Excess -4 mEq/L (-2 to 3); ABG HCO3 24 mEq/L (21-27); ABG Oxygen Saturation 91 % (95-98); ABG PCO2 61 mmHg (35-45); ABG PO2 75 mmHg (85-104); ABG TCO2 26 mEq/L (20-26); Blood Gas Modality ST
[2020-01-07] MEDS: Melatonin 3 MG TABLET PO SCH (20:34)
[2020-01-07] MEDS: Insulin DETEMIR 100 UNIT/ML X5UNITS SQ SCH (21:59)
[2020-01-08] MEDS: Albumin 25% 25gram/100mL 25 GM/100 ML IV.SOLN IVPB SCH ×3 (02:44→20:16)
[2020-01-08 03:50] LABS: ABG Base Excess -1 mEq/L (-2 to 3); ABG HCO3 25 mEq/L (21-27); ABG Oxygen Saturation 93 % (95-98); ABG PCO2 49 mmHg (35-45); ABG PH 7.31 pH Units (7.32-7.45); ABG PO2 75 mmHg (85-104); ABG TCO2 27 mEq/L (20-26); Blood Gas VT 500 cc
[2020-01-08 05:54] LABS: Hemoglobin 7.9 g/dL (11.5-15.4); Immature Granulocytes % 0.3 % (0-4)
[2020-01-08 05:56] LABS: Basophils % 0.8 %; Eosinophils # 0.2 K/mcL (0.0-0.6); Hematocrit 26.2 % (35.3-44.9); Immature Platelets 2.8 % (1.1-6.1); Lymphocytes # 0.7 K/mcL (0.6-4.6); Lymphocytes % 17.5 %; Mean Corpuscular HGB Conc 30.2 g/dL (31.6-35.5); Mean Corpuscular Hemoglobin 28.9 pg (28.0-33.3); Mean Platelet Volume 9.8 fL (9.4-12.4); Monocytes # 0.3 K/mcL (0.0-1.3); Monocytes % 8.4 %; Neutrophils # 2.6 K/mcL (1.6-8.9); Platelet Count 40 K/mcL (140-400); Red Blood Count 2.73 M/mcL (3.82-4.97); White Blood Count 3.8 K/mcL (4.3-11.1)
[2020-01-08] MEDS: *HR* Heparin 5,000 UNIT/ML VIAL SQ SCH ×3 (06:05→20:32)
[2020-01-08 06:11] LABS: Albumin 3.4 g/dL (3.5-5.7); Albumin/Globulin Ratio 1.5 (1.1-2.2); Bilirubin,Total 1.1 mg/dL (0.3-1.0); Calcium 8.7 mg/dL (8.6-10.3); Globulin 2.3 g/dL (2.4-3.5); Potassium 3.2 mEq/L (3.5-5.1); Total Protein 5.7 g/dL (6.4-8.9)
[2020-01-08] MEDS ORDERED: Lactulose 200 GM, Sodium Chloride IRRigation 700 ML RC ONE ×2 (06:55→19:33)
[2020-01-08] MEDS: Aspirin Enteric Coated 81 MG Tablet PO SCH (08:26)
[2020-01-08] MEDS: Spironolactone 25 MG TABLET PO SCH (08:26)
[2020-01-08] MEDS: Loratadine 10 MG TABLET PO SCH (08:26)
[2020-01-08] MEDS: Insulin LISPRO 300 UNITS/3 ML VIAL SQ SCH ×4 (08:26→20:30)
[2020-01-08] MEDS: Lactulose Oral Soln 20 GM/30 ML UDC PO SCH ×4 (08:26→23:45)
[2020-01-08] MEDS: Gabapentin 300 MG CAPSULE PO SCH (08:27)
[2020-01-08] MEDS: Zinc Sulfate 220 MG CAPSULE PO SCH (08:27)
[2020-01-08] MEDS: Ascorbic Acid 500 MG TABLET PO SCH (08:27)
[2020-01-08] MEDS ORDERED: Potassium Chloride 40 MEQ, Lidocaine 1% 2 ML in 0.9 % Sodium Chloride 500 ML IVPB ONE (10:43)
[2020-01-08] MEDS ORDERED: 0.9 % Sodium Chloride 250 ML IVC SCH (10:45)
[2020-01-08] MEDS ORDERED: 0.9 % Sodium Chloride 250 ML IVC PRN (11:13)
[2020-01-08] MEDS ORDERED: *HR* Heparin 10,000 UNIT/10 ML VIAL IV PRN (11:13)
[2020-01-08] MEDS ORDERED: 0.9 % Sodium Chloride 1,000 ML PRIME SCH (11:15)
[2020-01-08] MEDS ORDERED: *HR* Heparin 5,000 UNIT/ML VIAL ONE (13:59)
[2020-01-08 14:26] LABS: Hepatitis B Surface Antibody < 3.10 mIU/mL
[2020-01-08 15:02] LABS: Hepatitis B Surface Antigen Nonreactive (Nonreactive)
[2020-01-08] MEDS: Melatonin 3 MG TABLET PO SCH (20:15)
[2020-01-08] MEDS: Furosemide 40 MG/4 ML VIAL IVP SCH (20:15)
[2020-01-08] MEDS: Insulin DETEMIR 100 UNIT/ML X5UNITS SQ SCH (20:30)
[2020-01-09] MEDS: Albumin 25% 25gram/100mL 25 GM/100 ML IV.SOLN IVPB SCH (02:52)
[2020-01-09] MEDS: hydrOXYzine pamoate 25 MG CAPSULE PO PRN (04:21)
[2020-01-09] MEDS: *HR* Heparin 5,000 UNIT/ML VIAL SQ SCH ×3 (04:21→21:03)
[2020-01-09 04:22] LABS: VBG HCO3 27 mEq/L (21-27); VBG PCO2 53 mmHg (41-51); VBG PH 7.32 pH Units (7.32-7.42); VBG PO2 125 mmHg (25-50)
[2020-01-09 04:22] LABS: Immature Granulocytes % 0.5 % (0-4)
[2020-01-09 04:24] LABS: Basophils % 0.9 %; Eosinophils # 0.2 K/mcL (0.0-0.6); Eosinophils % 4.3 %; Hematocrit 26.1 % (35.3-44.9); Hemoglobin 8.1 g/dL (11.5-15.4); Immature Platelets 4.5 % (1.1-6.1); Lymphocytes # 0.8 K/mcL (0.6-4.6); Lymphocytes % 17.8 %; Mean Corpuscular Hemoglobin 29.1 pg (28.0-33.3); Mean Corpuscular Volume 93.9 fL (83.0-100.0); Mean Platelet Volume 11.3 fL (9.4-12.4); Monocytes # 0.4 K/mcL (0.0-1.3); Red Blood Count 2.78 M/mcL (3.82-4.97); Red Cell Distribution Width 17.3 % (11.5-14.5); Segmented Neutrophils % 67.5 %; White Blood Count 4.4 K/mcL (4.3-11.1)
[2020-01-09 04:28] LABS: Platelet Count 29 K/mcL (140-400)
[2020-01-09 04:36] LABS: Calcium 8.5 mg/dL (8.6-10.3); Potassium 3.3 mEq/L (3.5-5.1)
[2020-01-09] MEDS ORDERED: 0.9 % Sodium Chloride 250 ML IVC PRN (06:54)
[2020-01-09] MEDS: Insulin LISPRO 300 UNITS/3 ML VIAL SQ SCH ×4 (08:25→21:07)
[2020-01-09] MEDS: Lactulose Oral Soln 20 GM/30 ML UDC PO SCH ×3 (08:35→21:06)
[2020-01-09] MEDS: Loratadine 10 MG TABLET PO SCH (08:35)
[2020-01-09] MEDS: Ascorbic Acid 500 MG TABLET PO SCH (08:35)
[2020-01-09] MEDS: Furosemide 40 MG/4 ML VIAL IVP SCH ×2 (08:35→21:06)
[2020-01-09] MEDS: Aspirin Enteric Coated 81 MG Tablet PO SCH (08:36)
[2020-01-09] MEDS: Gabapentin 300 MG CAPSULE PO SCH (08:36)
[2020-01-09] MEDS: Zinc Sulfate 220 MG CAPSULE PO SCH (08:36)
[2020-01-09] MEDS ORDERED: *HR* Heparin 10,000 UNIT/10 ML VIAL IV PRN (11:20)
[2020-01-09] MEDS: Melatonin 3 MG TABLET PO SCH (21:06)
[2020-01-09] MEDS: Insulin DETEMIR 100 UNIT/ML X5UNITS SQ SCH (21:15)
[2020-01-10 02:27] LABS: Basophils % 0.7 %; Eosinophils # 0.2 K/mcL (0.0-0.6); Eosinophils % 3.7 %; Hematocrit 26.1 % (35.3-44.9); Hemoglobin 8.3 g/dL (11.5-15.4); Immature Granulocytes % 0.7 % (0-4); Immature Platelets 4.2 % (1.1-6.1); Mean Corpuscular HGB Conc 31.8 g/dL (31.6-35.5); Mean Corpuscular Hemoglobin 29.3 pg (28.0-33.3); Mean Corpuscular Volume 92.2 fL (83.0-100.0); Mean Platelet Volume 10.5 fL (9.4-12.4); Monocytes # 0.4 K/mcL (0.0-1.3); Monocytes % 9.2 %; Nucleated Red Blood Cells 0.5 /100 WBC (0); Red Blood Count 2.83 M/mcL (3.82-4.97); Red Cell Distribution Width 17.2 % (11.5-14.5); Segmented Neutrophils % 68.7 %; White Blood Count 4.4 K/mcL (4.3-11.1)
[2020-01-10 02:30] LABS: Lymphocytes # 0.8 K/mcL (0.6-4.6)
[2020-01-10 02:31] LABS: Platelet Count 26 K/mcL (140-400)
[2020-01-10 02:42] LABS: Calcium 8.2 mg/dL (8.6-10.3); Potassium 3.2 mEq/L (3.5-5.1)
[2020-01-10 02:49] LABS: Hypochromasia Present (Not Present)
[2020-01-10 02:50] LABS: Anisocytosis 1+ (Not Present); Platelet Estimate Marked Decrease (Normal); Polychromasia 1+ (Not Present)
[2020-01-10] MEDS: *HR* Heparin 5,000 UNIT/ML VIAL SQ SCH (03:22)
[2020-01-10] MEDS: Insulin LISPRO 300 UNITS/3 ML VIAL SQ SCH ×4 (07:18→20:58)
[2020-01-10] MEDS: Lactulose Oral Soln 20 GM/30 ML UDC PO SCH ×3 (09:18→20:57)
[2020-01-10] MEDS: Furosemide 40 MG/4 ML VIAL IVP SCH ×2 (09:19→20:57)
[2020-01-10] MEDS: Loratadine 10 MG TABLET PO SCH (09:19)
[2020-01-10] MEDS: Aspirin Enteric Coated 81 MG Tablet PO SCH (09:19)
[2020-01-10] MEDS: Gabapentin 300 MG CAPSULE PO SCH (09:19)
[2020-01-10] MEDS: Zinc Sulfate 220 MG CAPSULE PO SCH (09:20)
[2020-01-10] MEDS: Ascorbic Acid 500 MG TABLET PO SCH (09:21)
[2020-01-10] MEDS: Melatonin 3 MG TABLET PO SCH (20:57)
[2020-01-10] MEDS: Insulin DETEMIR 100 UNIT/ML X5UNITS SQ SCH (20:57)
[2020-01-10] MEDS: Ondansetron 4 MG/2 ML VIAL IVP PRN (23:14)
[2020-01-11 03:27] LABS: Hematocrit 27.6 % (35.3-44.9); Monocytes % 8.9 %
[2020-01-11 03:30] LABS: Basophils % 0.8 %; Eosinophils # 0.2 K/mcL (0.0-0.6); Hemoglobin 8.5 g/dL (11.5-15.4); Immature Granulocytes % 0.4 % (0-4); Immature Platelets 5.6 % (1.1-6.1); Immature Reticulocyte % 30.5 % (11.0-38.0); Lymphocytes # 0.7 K/mcL (0.6-4.6); Mean Corpuscular HGB Conc 30.8 g/dL (31.6-35.5); Mean Corpuscular Hemoglobin 29.1 pg (28.0-33.3); Mean Corpuscular Volume 94.5 fL (83.0-100.0); Mean Platelet Volume 11.1 fL (9.4-12.4); Monocytes # 0.4 K/mcL (0.0-1.3); Neutrophils # 3.4 K/mcL (1.6-8.9); Platelet Count 31 K/mcL (140-400); Red Blood Count 2.92 M/mcL (3.82-4.97); Red Cell Distribution Width 17.5 % (11.5-14.5); Retculocyte # 0.08 M/mcL (0.05-0.10); Reticulocyte % 2.7 % (1.6-2.8); Segmented Neutrophils % 69.9 %; White Blood Count 4.8 K/mcL (4.3-11.1)
[2020-01-11 03:48] LABS: Complement C3 52 mg/dL (87-200)
[2020-01-11 03:51] LABS: Albumin 3.2 g/dL (3.5-5.7); Albumin/Globulin Ratio 1.4 (1.1-2.2); Bilirubin,Direct 0.5 mg/dL (0.0-0.2); Bilirubin,Indirect 0.8 mg/dL (0.0-1.0); Bilirubin,Total 1.3 mg/dL (0.3-1.0); Globulin 2.3 g/dL (2.4-3.5); Potassium 3.5 mEq/L (3.5-5.1); Total Protein 5.5 g/dL (6.4-8.9)
[2020-01-11 04:14] LABS: Folate 8.7 ng/mL (3.0-16.0)
[2020-01-11 04:15] LABS: Vitamin B12 1190 pg/mL (250-1100)
[2020-01-11 05:27] LABS: HIV-1&2 Antibody & p24 Ag Nonreactive (Nonreactive)
[2020-01-11] MEDS: Ascorbic Acid 500 MG TABLET PO SCH (08:44)
[2020-01-11] MEDS: Insulin LISPRO 300 UNITS/3 ML VIAL SQ SCH ×4 (08:44→20:51)
[2020-01-11] MEDS: Gabapentin 300 MG CAPSULE PO SCH (08:44)
[2020-01-11] MEDS: Lactulose Oral Soln 20 GM/30 ML UDC PO SCH ×3 (08:44→20:51)
[2020-01-11] MEDS: Zinc Sulfate 220 MG CAPSULE PO SCH (08:44)
[2020-01-11] MEDS: Loratadine 10 MG TABLET PO SCH (08:44)
[2020-01-11] MEDS: Furosemide 40 MG/4 ML VIAL IVP SCH (08:44)
[2020-01-11] MEDS ORDERED: 0.9 % Sodium Chloride 250 ML IVC PRN (09:57)
[2020-01-11] MEDS ORDERED: *HR* Heparin 10,000 UNIT/10 ML VIAL IV PRN ×2 (11:39→13:30)
[2020-01-11] MEDS: Ondansetron 4 MG/2 ML VIAL IVP PRN (11:50)
[2020-01-11] MEDS: Melatonin 3 MG TABLET PO SCH (20:51)
[2020-01-11] MEDS: Insulin DETEMIR 100 UNIT/ML X5UNITS SQ SCH (20:52)
[2020-01-11] MEDS: hydrOXYzine pamoate 25 MG CAPSULE PO PRN (23:40)
[2020-01-12 03:59] LABS: Basophils # 0.1 K/mcL (0.0-0.2); Basophils % 1.1 %; Eosinophils # 0.3 K/mcL (0.0-0.6); Eosinophils % 6.1 %; Hemoglobin 7.8 g/dL (11.5-15.4); Immature Granulocytes % 1.1 % (0-4); Immature Platelets 5.9 % (1.1-6.1); Lymphocytes # 0.9 K/mcL (0.6-4.6); Lymphocytes % 18.2 %; Mean Corpuscular Hemoglobin 29.1 pg (28.0-33.3); Mean Platelet Volume 11.7 fL (9.4-12.4); Monocytes # 0.5 K/mcL (0.0-1.3); Monocytes % 9.7 %; Red Blood Count 2.68 M/mcL (3.82-4.97); Red Cell Distribution Width 17.7 % (11.5-14.5); Segmented Neutrophils % 63.8 %; White Blood Count 4.7 K/mcL (4.3-11.1)
[2020-01-12 04:01] LABS: INR 1.7; Prothrombin Time 19.7 Seconds (9.4-12.1)
[2020-01-12 04:14] LABS: Platelet Count 24 K/mcL (140-400)
[2020-01-12 04:16] LABS: Potassium 3.7 mEq/L (3.5-5.1)
[2020-01-12] MEDS: Insulin LISPRO 300 UNITS/3 ML VIAL SQ SCH ×4 (07:19→20:23)
[2020-01-12] MEDS: Ascorbic Acid 500 MG TABLET PO SCH (08:35)
[2020-01-12] MEDS: Furosemide 20 MG TABLET PO SCH ×2 (08:35→16:08)
[2020-01-12] MEDS: Gabapentin 300 MG CAPSULE PO SCH (08:35)
[2020-01-12] MEDS: Zinc Sulfate 220 MG CAPSULE PO SCH (08:35)
[2020-01-12] MEDS: Loratadine 10 MG TABLET PO SCH (08:35)
[2020-01-12] MEDS: Lactulose Oral Soln 20 GM/30 ML UDC PO SCH ×3 (08:36→20:32)
[2020-01-12] MEDS ORDERED: 0.9 % Sodium Chloride 250 ML IVC SCH (08:45)
[2020-01-12 10:18] LABS: Albumin 3.1 g/dL (3.5-5.7); Albumin/Globulin Ratio 1.4 (1.1-2.2); Bilirubin,Total 1.3 mg/dL (0.3-1.0); Calcium 8.1 mg/dL (8.6-10.3); Globulin 2.2 g/dL (2.4-3.5); Potassium 3.6 mEq/L (3.5-5.1); Total Protein 5.3 g/dL (6.4-8.9)
[2020-01-12 10:34] LABS: Basophils # 0.1 K/mcL (0.0-0.2); Basophils % 1.1 %; Eosinophils # 0.3 K/mcL (0.0-0.6); Hematocrit 26.1 % (35.3-44.9); Hemoglobin 7.9 g/dL (11.5-15.4); Immature Granulocytes % 0.4 % (0-4); Lymphocytes % 20.7 %; Mean Corpuscular HGB Conc 30.3 g/dL (31.6-35.5); Mean Corpuscular Hemoglobin 29.7 pg (28.0-33.3); Mean Corpuscular Volume 98.1 fL (83.0-100.0); Mean Platelet Volume 12.8 fL (9.4-12.4); Monocytes # 0.6 K/mcL (0.0-1.3); Monocytes % 11.8 %; Neutrophils # 2.8 K/mcL (1.6-8.9); Nucleated Red Blood Cells 0.4 /100 WBC (0); Red Blood Count 2.66 M/mcL (3.82-4.97); Red Cell Distribution Width 17.9 % (11.5-14.5); White Blood Count 4.7 K/mcL (4.3-11.1)
[2020-01-12 10:38] LABS: Platelet Count 27 K/mcL (140-400)
[2020-01-12] MEDS ORDERED: Ferumoxytol 510 MG in 0.9 % Sodium Chloride 100 ML IVPB ONE (11:16)
[2020-01-12 15:37] LABS: Hemoglobin 7.6 g/dL (11.5-15.4); Mean Corpuscular Volume 98.1 fL (83.0-100.0)
[2020-01-12 15:39] LABS: Basophils # 0.1 K/mcL (0.0-0.2); Eosinophils # 0.2 K/mcL (0.0-0.6); Eosinophils % 4.2 %; Hematocrit 25.3 % (35.3-44.9); Immature Granulocytes % 0.6 % (0-4); Immature Platelets 4.6 % (1.1-6.1); Lymphocytes # 0.8 K/mcL (0.6-4.6); Lymphocytes % 16.2 %; Mean Corpuscular Hemoglobin 29.5 pg (28.0-33.3); Mean Platelet Volume 11.2 fL (9.4-12.4); Monocytes # 0.5 K/mcL (0.0-1.3); Monocytes % 9.2 %; Neutrophils # 3.6 K/mcL (1.6-8.9); Red Blood Count 2.58 M/mcL (3.82-4.97); Red Cell Distribution Width 17.9 % (11.5-14.5); Segmented Neutrophils % 68.8 %; White Blood Count 5.2 K/mcL (4.3-11.1)
[2020-01-12 15:52] LABS: INR 1.7; Prothrombin Time 19.2 Seconds (9.4-12.1)
[2020-01-12 15:54] LABS: Activated Partial Thrombo Time 49.8 Seconds (26.0-36.0)
[2020-01-12 16:37] LABS: Platelet Count 38 K/mcL (140-400)
[2020-01-12] MEDS: Insulin DETEMIR 100 UNIT/ML X5UNITS SQ SCH (20:32)
[2020-01-12] MEDS: Melatonin 3 MG TABLET PO SCH (20:32)
[2020-01-13 03:58] LABS: Hematocrit 22.7 % (35.3-44.9); Hemoglobin 6.8 g/dL (11.5-15.4); Mean Corpuscular Hemoglobin 29.4 pg (28.0-33.3); Mean Corpuscular Volume 98.3 fL (83.0-100.0); Red Blood Count 2.31 M/mcL (3.82-4.97); Red Cell Distribution Width 17.6 % (11.5-14.5)
[2020-01-13 04:00] LABS: Basophils % 0.9 %; Eosinophils # 0.2 K/mcL (0.0-0.6); Eosinophils % 4.7 %; Immature Granulocytes % 0.6 % (0-4); Immature Platelets 5.9 % (1.1-6.1); Lymphocytes # 0.7 K/mcL (0.6-4.6); Lymphocytes % 20.4 %; Mean Platelet Volume 11.1 fL (9.4-12.4); Monocytes # 0.3 K/mcL (0.0-1.3); Monocytes % 8.6 %; Neutrophils # 2.2 K/mcL (1.6-8.9); Segmented Neutrophils % 64.8 %; White Blood Count 3.4 K/mcL (4.3-11.1)
[2020-01-13 04:01] LABS: Platelet Count 31 K/mcL (140-400)
[2020-01-13 05:38] LABS: Hypochromasia Present (Not Present)
[2020-01-13 05:40] LABS: Basophilic Stippling 1+ (Not Present)
[2020-01-13 05:42] LABS: Platelet Estimate Decreased (Normal)
[2020-01-13] MEDS: Insulin LISPRO 300 UNITS/3 ML VIAL SQ SCH ×2 (07:52→12:16)
[2020-01-13] MEDS: Gabapentin 300 MG CAPSULE PO SCH (09:56)
[2020-01-13] MEDS: Loratadine 10 MG TABLET PO SCH (09:56)
[2020-01-13] MEDS: Lactulose Oral Soln 20 GM/30 ML UDC PO SCH (09:57)
[2020-01-13] MEDS: Zinc Sulfate 220 MG CAPSULE PO SCH (09:57)
[2020-01-13] MEDS: Ascorbic Acid 500 MG TABLET PO SCH (09:57)
[2020-01-13] MEDS: Furosemide 20 MG TABLET PO SCH (10:27)
[2020-01-13 11:31] VITALS: BP 83/49
[2020-01-14 07:06] LABS: Immunoglobulin A 474 mg/dL (68-408); Immunoglobulin G 1080 mg/dL (768-1632); Immunoglobulin M 109 mg/dL (35-263)
[2020-01-14 11:01] LABS: Kappa Qnt Free Light Chains 98.89 mg/L (3.30-19.40); Lambda Qnt Free Light Chains 83.45 mg/L (5.71-26.30)
[2020-01-14 22:01] LABS: FACV Specimen WHOLE BLOOD
[2020-01-14 23:59] LABS: Urine Collection Volume RANDOM mL
[2020-01-15 11:07] LABS: Fac V Leiden R506Q Mut Result NEGATIVE
[2020-01-15 18:09] LABS: Alpha 2 Globulin (PEP) 0.28 g/dL (0.48-1.05); Beta Globulin (PEP) 0.62 g/dL (0.48-1.10)
[2020-01-16 08:44] LABS: IFE Reflexed NOT DONE
== END 2020-01-13 15:05 | disposition other institution (70) | DRG 441 ==
LOC: 2ANU → SUATTDRO 01-02 11:32 → 2ANU 01-08 14:18
PROVIDERS: ADMIT Internal Medicine; ATTEND Student in an Organized Health Care Education/Training Program
PROC: IRPERMA (2020-01-12 11:00)

== ENCOUNTER 2021-02-10 15:27 | Observation (INO) ==
[2021-02-10 16:24] LABS: Basophils # 0.1 K/mcL (0.0-0.2); Eosinophils # 0.6 K/mcL (0.0-0.6); Eosinophils % 11.7 %; Hematocrit 23.1 % (35.3-44.9); Hemoglobin 6.8 g/dL (11.5-15.4); Immature Granulocytes % 0.6 % (0-4); Lymphocytes # 1.4 K/mcL (0.6-4.6); Lymphocytes % 28.1 %; Mean Corpuscular HGB Conc 29.4 g/dL (31.6-35.5); Mean Corpuscular Hemoglobin 25.6 pg (28.0-33.3); Mean Corpuscular Volume 86.8 fL (83.0-100.0); Mean Platelet Volume 9.9 fL (9.4-12.4); Monocytes # 0.7 K/mcL (0.0-1.3); Monocytes % 13.9 %; Neutrophils # 2.2 K/mcL (1.6-8.9); Platelet Count 178 K/mcL (140-400); Red Blood Count 2.66 M/mcL (3.82-4.97); Red Cell Distribution Width 15.7 % (11.5-14.5); Segmented Neutrophils % 44.7 %; White Blood Count 4.9 K/mcL (4.3-11.1)
[2021-02-10 16:32] LABS: INR 1.4; Prothrombin Time 15.9 Seconds (9.4-12.1)
[2021-02-10] MEDS ORDERED: Azithromycin 500 MG in 0.9 % Sodium Chloride 250 ML IVPB ONE (16:35)
[2021-02-10] MEDS ORDERED: cefTRIAXone 1,000 MG in Water for inj. (sterile) 10 ML IVP ONE (16:35)
[2021-02-10] MEDS ORDERED: Doxycycline 100 MG in 0.9 % Sodium Chloride Mini Bag 100 ML IVPB ONE (16:36)
[2021-02-10 16:46] LABS: Albumin 3.6 g/dL (3.5-5.7); Albumin/Globulin Ratio 1.3 (1.1-2.2); Bilirubin,Direct 0.1 mg/dL (0.0-0.2); Bilirubin,Indirect 0.4 mg/dL (0.0-1.0); Bilirubin,Total 0.5 mg/dL (0.3-1.0); Globulin 2.8 g/dL (2.4-3.5); Potassium 4.6 mEq/L (3.5-5.1); Total Protein 6.4 g/dL (6.4-8.9)
[2021-02-10 18:40] LABS: Adenovirus Not Detected (Not Detect); Bordetella Pertussis Not Detected (Not Detect); Chlamydophila pneumoniae Not Detected (Not Detect); Coronavirus 229E Not Detected (Not Detect); Coronavirus HKU1 Not Detected (Not Detect); Coronavirus NL63 Not Detected (Not Detect); Coronavirus OC43 Not Detected (Not Detect); Human Metapneumovirus Not Detected (Not Detect); Human Rhinovirus/Enterovirus Not Detected (Not Detect); Influenza A Subtype 2009 H1 Not Detected (Not Detect); Influenza B Not Detected (Not Detect); Mycoplasma pneumoniae Not Detected (Not Detect); Parainfluenza Virus 1 Not Detected (Not Detect); Parainfluenza Virus 2 Not Detected (Not Detect); Parainfluenza Virus 3 Not Detected (Not Detect); Parainfluenza Virus 4 Not Detected (Not Detect); Respiratory Syncytial Virus Not Detected (Not Detect); SARS-CoV-2 Not Detected (Not Detect)
[2021-02-10] MEDS ORDERED: Naloxone 0.4 MG/ML INJ IVP PRN (18:44)
[2021-02-10] MEDS ORDERED: Ondansetron 4 MG/2 ML VIAL IVP PRN (18:44)
[2021-02-10] MEDS ORDERED: 0.9 % Sodium Chloride 250 ML ONE (21:24)
[2021-02-11] MEDS ORDERED: *HR* Dextrose 50 % in Water (Vial) 50 ML VIAL IVP PRN (01:32)
[2021-02-11] MEDS ORDERED: Dextrose Gel 15 GM/37.5 ML TUBE PO PRN ×2 (01:32)
[2021-02-11] MEDS ORDERED: D5% in Water 1,000 ML IVC PRN (01:32)
[2021-02-11] MEDS: Mycophenolate Sodium (DR) 180 MG TABLET.DR PO SCH ×3 (02:20→20:51)
[2021-02-11 05:08] LABS: Hematocrit 24.2 % (35.3-44.9); Hemoglobin 7.7 g/dL (11.5-15.4); Mean Corpuscular HGB Conc 31.8 g/dL (31.6-35.5); Mean Corpuscular Hemoglobin 26.7 pg (28.0-33.3); Mean Platelet Volume 9.9 fL (9.4-12.4); Platelet Count 138 K/mcL (140-400); Red Blood Count 2.88 M/mcL (3.82-4.97); Red Cell Distribution Width 15.1 % (11.5-14.5); White Blood Count 4.3 K/mcL (4.3-11.1)
[2021-02-11 05:24] LABS: Calcium 7.7 mg/dL (8.6-10.3); Magnesium 2.2 mg/dL (1.6-2.6); Phosphorous 3.5 mg/dL (2.7-4.5); Potassium 4.5 mEq/L (3.5-5.1)
[2021-02-11] MEDS: Insulin LISPRO 300 UNITS/3 ML VIAL SUBQ SCH ×4 (07:57→20:50)
[2021-02-11] MEDS: Calcium Gluconate 1gm/50mL 1 GM/50 ML BAG IVPB SCH ×2 (08:41→10:09)
[2021-02-11] MEDS: Pantoprazole 40 MG VIAL IVP SCH ×2 (11:02→17:45)
[2021-02-11] MEDS: Aspirin Enteric Coated 81 MG Tablet PO SCH (11:02)
[2021-02-11 12:10] LABS: Hematocrit 26.2 % (35.3-44.9); Hemoglobin 7.9 g/dL (11.5-15.4)
[2021-02-11] MEDS ORDERED: Nitroglycerin 0.4 MG TAB.SUBL SL PRN (14:30)
[2021-02-11] MEDS ORDERED: tiZANidine 4 MG TABLET PO PRN (14:30)
[2021-02-11 15:03] LABS: Bilirubin,Urine Negative (Negative); Blood,Urine Negative (Negative); Clarity,Urine Clear (Clear); Color,Urine Light-Yellow (Yellow); Glucose,Urine (UA) 30 mg/dL (Normal); Ketones,Urine Negative (Negative); Leukocyte Esterase,Urine Negative (Negative); Nitrite,Urine Negative (Negative); Protein,Urine 70 mg/dL (Neg-Trace); RBC,Urine 0-3 per hpf (0-3); Specific Gravity,Urine 1.015 (1.010-1.025); Urobilinogen,Urine Normal (Normal); WBC,Urine 0-3 per hpf (0-3)
[2021-02-11 16:25] LABS: Hematocrit 24.9 % (35.3-44.9); Hemoglobin 7.7 g/dL (11.5-15.4)
[2021-02-11] MEDS: (Everolimus [Zortress] 0.5 MG Tablet) PO SCH (17:45)
[2021-02-11] MEDS ORDERED: NON-FORMULARY MEDICATION 1 EACH EACH (Insulin Detemir [Levemir Flextouch] 100 UNIT/ML Insu SQ SCH (18:00)
[2021-02-11] MEDS: Insulin DETEMIR 100 UNIT/ML X5UNITS SUBQ SCH (20:50)
[2021-02-11] MEDS: carvediloL 6.25 MG TABLET PO SCH (20:50)
[2021-02-11] MEDS: Melatonin 3 MG TABLET PO SCH (20:51)
[2021-02-11 22:39] LABS: Hematocrit 23.5 % (35.3-44.9); Hemoglobin 7.3 g/dL (11.5-15.4)
[2021-02-12 05:35] LABS: Basophils # 0.1 K/mcL (0.0-0.2); Basophils % 1.2 %; Eosinophils # 0.4 K/mcL (0.0-0.6); Eosinophils % 10.8 %; Hematocrit 23.2 % (35.3-44.9); Hemoglobin 7.4 g/dL (11.5-15.4); Immature Granulocytes % 0.7 % (0-4); Lymphocytes % 25.6 %; Mean Corpuscular HGB Conc 31.9 g/dL (31.6-35.5); Mean Corpuscular Hemoglobin 26.4 pg (28.0-33.3); Mean Corpuscular Volume 82.9 fL (83.0-100.0); Mean Platelet Volume 10.2 fL (9.4-12.4); Monocytes # 0.5 K/mcL (0.0-1.3); Monocytes % 13.3 %; Platelet Count 141 K/mcL (140-400); Red Cell Distribution Width 15.1 % (11.5-14.5); Segmented Neutrophils % 48.4 %; White Blood Count 4.1 K/mcL (4.3-11.1)
[2021-02-12 05:39] LABS: Hematocrit 23.4 % (35.3-44.9); Hemoglobin 7.5 g/dL (11.5-15.4)
[2021-02-12] MEDS: Pantoprazole 40 MG VIAL IVP SCH ×2 (05:39→18:34)
[2021-02-12 05:40] LABS: Estimated Average Glucose 148 mg/dl; Hemoglobin A1C 6.8 %
[2021-02-12 05:41] LABS: INR 1.6; Prothrombin Time 18.5 Seconds (9.4-12.1)
[2021-02-12] MEDS: (Everolimus [Zortress] 0.5 MG Tablet) PO SCH ×2 (05:50→18:35)
[2021-02-12 06:01] LABS: Albumin 3.2 g/dL (3.5-5.7); Albumin/Globulin Ratio 1.2 (1.1-2.2); Bilirubin,Total 0.6 mg/dL (0.3-1.0); Calcium 8.1 mg/dL (8.6-10.3); Globulin 2.6 g/dL (2.4-3.5); Phosphorous 3.3 mg/dL (2.7-4.5); Potassium 4.3 mEq/L (3.5-5.1); Total Protein 5.8 g/dL (6.4-8.9)
[2021-02-12 06:19] LABS: Folate 14.1 ng/mL (3.0-16.0)
[2021-02-12] MEDS ORDERED: Iron Sucrose Complex 400 MG in 0.9 % Sodium Chloride 250 ML IVPB ONE (07:17)
[2021-02-12] MEDS: Aspirin Enteric Coated 81 MG Tablet PO SCH (09:02)
[2021-02-12] MEDS: carvediloL 6.25 MG TABLET PO SCH ×2 (09:02→22:27)
[2021-02-12] MEDS: Mycophenolate Sodium (DR) 180 MG TABLET.DR PO SCH ×2 (09:02→22:29)
[2021-02-12] MEDS: Magnesium Oxide 400 MG TABLET PO SCH (09:03)
[2021-02-12] MEDS: Cyanocobalamin (B-12) 1,000 MCG TABLET PO SCH (09:03)
[2021-02-12] MEDS ORDERED: Perflutren Lipid Microsphere 1.3 ML in 0.9 % Sodium Chloride 8.7 ML IVP PRN (09:03)
[2021-02-12] MEDS: Cholecalciferol (D-3) 1,000 UNIT (25MCG) TABLET PO SCH (09:07)
[2021-02-12] MEDS: Calcium Gluconate 1gm/50mL 1 GM/50 ML BAG IVPB SCH ×2 (09:08→10:28)
[2021-02-12 10:12] LABS: Hematocrit 24.6 % (35.3-44.9); Hemoglobin 7.6 g/dL (11.5-15.4)
[2021-02-12] MEDS: Insulin LISPRO 300 UNITS/3 ML VIAL SUBQ SCH ×3 (10:25→22:28)
[2021-02-12] MEDS: Azithromycin 250 MG TABLET PO SCH (12:49)
[2021-02-12] MEDS: Doxycycline 100 MG CAPSULE PO SCH ×2 (12:49→22:27)
[2021-02-12 15:19] LABS: Hematocrit 25.3 % (35.3-44.9); Hemoglobin 7.8 g/dL (11.5-15.4)
[2021-02-12] MEDS: Melatonin 3 MG TABLET PO SCH (22:28)
[2021-02-12] MEDS: Insulin DETEMIR 100 UNIT/ML X5UNITS SUBQ SCH (22:28)
[2021-02-13 02:40] LABS: INR 1.6; Prothrombin Time 17.9 Seconds (9.4-12.1)
[2021-02-13 02:41] LABS: Basophils # 0.1 K/mcL (0.0-0.2); Basophils % 1.6 %; Eosinophils # 0.4 K/mcL (0.0-0.6); Eosinophils % 9.8 %; Hematocrit 25.7 % (35.3-44.9); Hemoglobin 8.2 g/dL (11.5-15.4); Immature Granulocytes % 2.3 % (0-4); Lymphocytes % 23.6 %; Mean Corpuscular HGB Conc 31.9 g/dL (31.6-35.5); Mean Corpuscular Hemoglobin 26.3 pg (28.0-33.3); Mean Corpuscular Volume 82.4 fL (83.0-100.0); Mean Platelet Volume 9.7 fL (9.4-12.4); Monocytes # 0.6 K/mcL (0.0-1.3); Monocytes % 12.8 %; Neutrophils # 2.2 K/mcL (1.6-8.9); Platelet Count 144 K/mcL (140-400); Red Blood Count 3.12 M/mcL (3.82-4.97); Red Cell Distribution Width 14.9 % (11.5-14.5); Segmented Neutrophils % 49.9 %; White Blood Count 4.4 K/mcL (4.3-11.1)
[2021-02-13 02:54] LABS: Albumin 3.3 g/dL (3.5-5.7); Albumin/Globulin Ratio 1.2 (1.1-2.2); Bilirubin,Total 0.6 mg/dL (0.3-1.0); Calcium 8.4 mg/dL (8.6-10.3); Globulin 2.8 g/dL (2.4-3.5); Magnesium 1.8 mg/dL (1.6-2.6); Phosphorous 3.6 mg/dL (2.7-4.5); Potassium 4.1 mEq/L (3.5-5.1); Total Protein 6.1 g/dL (6.4-8.9)
[2021-02-13] MEDS: Pantoprazole 40 MG VIAL IVP SCH ×2 (06:03→17:00)
[2021-02-13] MEDS: (Everolimus [Zortress] 0.5 MG Tablet) PO SCH ×2 (06:04→17:01)
[2021-02-13] MEDS: Insulin LISPRO 300 UNITS/3 ML VIAL SUBQ SCH ×4 (07:29→21:01)
[2021-02-13] MEDS: Azithromycin 250 MG TABLET PO SCH (07:49)
[2021-02-13] MEDS: carvediloL 6.25 MG TABLET PO SCH (07:49)
[2021-02-13] MEDS: Doxycycline 100 MG CAPSULE PO SCH (07:49)
[2021-02-13] MEDS: Cholecalciferol (D-3) 1,000 UNIT (25MCG) TABLET PO SCH (07:49)
[2021-02-13] MEDS: Cyanocobalamin (B-12) 1,000 MCG TABLET PO SCH (07:50)
[2021-02-13] MEDS: Multivit/Ca/Min/Fe/FA 1 TAB TABLET PO SCH (07:50)
[2021-02-13] MEDS: Mycophenolate Sodium (DR) 180 MG TABLET.DR PO SCH ×2 (07:50→21:06)
[2021-02-13] MEDS: Magnesium Oxide 400 MG TABLET PO SCH (07:50)
[2021-02-13] MEDS: Aspirin Enteric Coated 81 MG Tablet PO SCH (07:50)
[2021-02-13] MEDS ORDERED: Sulfamethoxazole/Trimeth DS 1 EACH TABLET PO SCH (10:21)
[2021-02-13] MEDS: Isosorbide MONOnitrate (24 HR) 30 MG TAB.ER.24H PO SCH (10:46)
[2021-02-13] MEDS ORDERED: *HR* Propofol 200 MG/20 ML VIAL IVP ONE (11:00)
[2021-02-13] MEDS ORDERED: Lidocaine -MPF 2% 5 ML VIAL ONE (11:03)
[2021-02-13 15:21] LABS: Hematocrit 26.7 % (35.3-44.9); Hemoglobin 8.4 g/dL (11.5-15.4)
[2021-02-13] MEDS: hydrALAZINE 25 MG TABLET PO SCH (15:30)
[2021-02-13] MEDS: carvediloL 25 MG TABLET PO SCH (15:30)
[2021-02-13] MEDS: Insulin DETEMIR 100 UNIT/ML X5UNITS SUBQ SCH (21:06)
[2021-02-13] MEDS: Melatonin 3 MG TABLET PO SCH (21:06)
[2021-02-14 00:36] LABS: Basophils # 0.1 K/mcL (0.0-0.2); Basophils % 0.9 %; Eosinophils # 0.3 K/mcL (0.0-0.6); Eosinophils % 4.7 %; Hematocrit 26.1 % (35.3-44.9); Hemoglobin 8.2 g/dL (11.5-15.4); Immature Granulocytes % 1.7 % (0-4); Lymphocytes # 1.3 K/mcL (0.6-4.6); Lymphocytes % 20.2 %; Mean Corpuscular HGB Conc 31.4 g/dL (31.6-35.5); Mean Corpuscular Hemoglobin 26.4 pg (28.0-33.3); Mean Corpuscular Volume 83.9 fL (83.0-100.0); Mean Platelet Volume 9.7 fL (9.4-12.4); Monocytes # 0.7 K/mcL (0.0-1.3); Monocytes % 10.2 %; Neutrophils # 4.1 K/mcL (1.6-8.9); Platelet Count 155 K/mcL (140-400); Red Blood Count 3.11 M/mcL (3.82-4.97); Red Cell Distribution Width 15.4 % (11.5-14.5); Segmented Neutrophils % 62.3 %; White Blood Count 6.6 K/mcL (4.3-11.1)
[2021-02-14 00:52] LABS: INR 1.5
[2021-02-14 00:56] LABS: Albumin 3.3 g/dL (3.5-5.7); Albumin/Globulin Ratio 1.2 (1.1-2.2); Bilirubin,Total 0.5 mg/dL (0.3-1.0); Calcium 8.2 mg/dL (8.6-10.3); Globulin 2.7 g/dL (2.4-3.5); Magnesium 1.8 mg/dL (1.6-2.6); Phosphorous 3.8 mg/dL (2.7-4.5); Potassium 3.8 mEq/L (3.5-5.1)
[2021-02-14] MEDS: (Everolimus [Zortress] 0.5 MG Tablet) PO SCH (04:51)
[2021-02-14] MEDS: Pantoprazole 40 MG VIAL IVP SCH (04:58)
[2021-02-14] MEDS ORDERED: Calcium Gluconate 1gm/50mL 1 GM/50 ML BAG IVPB ONE (07:32)
[2021-02-14 07:34] VITALS: BP 164/69
[2021-02-14] MEDS: Insulin LISPRO 300 UNITS/3 ML VIAL SUBQ SCH ×2 (08:50→11:10)
[2021-02-14] MEDS: Magnesium Oxide 400 MG TABLET PO SCH (09:09)
[2021-02-14] MEDS: Cholecalciferol (D-3) 1,000 UNIT (25MCG) TABLET PO SCH (09:09)
[2021-02-14] MEDS: Mycophenolate Sodium (DR) 180 MG TABLET.DR PO SCH (09:09)
[2021-02-14] MEDS: Isosorbide MONOnitrate (24 HR) 30 MG TAB.ER.24H PO SCH (09:09)
[2021-02-14] MEDS: carvediloL 25 MG TABLET PO SCH (09:10)
[2021-02-14] MEDS: hydrALAZINE 25 MG TABLET PO SCH ×2 (09:10)
[2021-02-14] MEDS: Multivit/Ca/Min/Fe/FA 1 TAB TABLET PO SCH (09:10)
[2021-02-14] MEDS: Aspirin Enteric Coated 81 MG Tablet PO SCH (09:10)
[2021-02-14] MEDS: Cyanocobalamin (B-12) 1,000 MCG TABLET PO SCH (09:10)
== END 2021-02-14 13:10 | disposition home or self-care (01) ==
LOC: EMEROOARM 15:27 → 2ANU 15:27 → SUATTDRO 18:40 → 2ANU 20:14
PROVIDERS: ADMIT Internal Medicine; ATTEND Internal Medicine